=== PATIENT | male | born 1945 | race African-American/Black ===

== ENCOUNTER 2018-01-02 14:36 | Inpatient (IN) | payer MEDICARE, MEDICAID ==
[2018-01-02] VITALS (26 sets, daily range): BP systolic 69–186; BP diastolic 49–90; BMI 25.7
[~2018-01-02] VITALS: Ht 180.3 cm; Wt 72.8 kg
--- NOTE | ~2018-01-02 | MORECARE ---
CASE MANAGEMENT DISCHARGE SUMMARY PATIENT: TYLER CHANEY UNIT: [id number] ADM DATE: 01/02/18 AGE: 72 : 45 SEX: M ROOM/BED: D.2316 AUTHOR: JOSE ANTONIO,DOC PHYSICIAN: REFERRING PHYSICIAN: ALEJANDRO TORRES MD DATE OF SERVICE: 02/12/18 Discharge Plan Patient Name: TYLER CHANEY Facility: [facility]:[place] : 1945 Planned Disposition: Home Anticipated Discharge Date: Discharge Date: 02/12/2018 Expected LOS: Initial Reviewer: [id number] Initial Review Date: 01/02/2018 Generated: 02/12/18 4:20 pm Comments DCP- Discharge Planning Updated by [id number]: Agnieszka Lee on 02/11/18 12:[address] CM received call back from Dr. Evelyne Michaud from [facility] for P2P CM located Dr. De Paz and he spoke with Dr. Michaud. CM spoke with Dr. Michaud and patient has been approved for LTACH placement. CM called and left message with [facility] that patient has been approved. Sabrina with [facility] here for current records she stated that her air conditioning coil assembler would need to do a P2P with Dr. De Paz prior to admission. CM will continue to follow and assist with discharge planning / needs. DCP- Discharge Planning Updated by [email or web address]: Agnieszka Lee on 02/11/18 9:[address] CM CALLED [facility] AGAIN TO ASK ABOUT P2P. CM SPOKE WITH ANAND SHE STATED SHE WOULD EMAIL PROMOTIONAL MARKETING ANALYST AGAIN. CM REQUESTED THAT PROMOTIONAL MARKETING ANALYST CALL CM PHONE AND THEN SHE WOULD LOCATE PHYSICIAN FOR P2P. CM TO CONTINUE TO FOLLOW AND ASSIST WITH DISCHARGE PLANNING. DCP- Discharge Planning Updated by [email or web address]: Agnieszka Lee on 02/08/18 2:[address] CM SPOKE WITH AND HE HAS NOT RECIEVED A CALL BACK FROM [facility] FOR P2P. CM CALLED [facility] BACK 02/08/18 @1030. THEY REQUESTED I CALL BACK IF NO RESPONSE BY 1400. CM RETURNED CALL @ 1415 SPOKE WITH ISMAEL. SHE STATED THAT SHE WOULD EMAIL PHYSICIAN CM REQUESTED FOR THEM TO CALL [phone]. CM EXPRESSED THAT SHE UNDERSTAND WHY PATIENT COULD BE DENIED SINCE HE IS ON VENT. CM WILL CONTINUE TO FOLLOW AND ASSIST WITH DISCHARGE PLANNING / NEEDS. DCP- Discharge Planning Updated by [id number]: Agnieszka Lee on 02/06/18 1:[address] CM received denial letter from [facility] on LTACH placement. CM spoke with doctor Екатерина he agrees to do P2P. CM called to set up P2P with [facility] they said that their medical physicist has up to 24 hrs. to call back. CM will continue to follow and assist with discharge planning / needs. DCP- Discharge Planning Updated by [email or web address]: Agnieszka Lee on 02/05/18 2:[address] CM received call from Sabrina @ [facility] that patient had been denied per [facility] for LTACH placement. CM has requested a copy for denial to see if we can appeal. CM will continue to follow and assist with discharge planning / needs. Appended by Agnieszka Lee on 02/05/2018 15:25 PET STORE MERCHANDISER: CM received call back from [facility] she stated that she would bring denial letter in am and discuss the next steps.CM will continue to follow and assist with discharge planning / needs. DCP- Discharge Planning Updated by [email or web address]: Agnieszka Lee on 02/04/18 3:[address] CM called and spoke with Zenaida @ [facility]. She stated that she would call [facility] again today to see if they had made a determination. Zenaida stated that last week that [facility] had stated that they thought the records sent for auth to admit was clinicals sent from this facility for continued stay review. CM will continue to follow and assist with discharge planning / needs Appended by Agnieszka Lee on 02/04/2018 16:19 PET STORE MERCHANDISER: CM called Zenaida back @ [phone] to check on status still no answers on auth. CM relayed message to family. CM continues to follow and assist with discharge planning / needs. DCP- Discharge Planning Updated by [id number]: Agnieszka Lee on 02/01/18 11:[address] CM called and left message with LTACH intake to find out about auth from [facility].CM will continue to follow and assist as needed with discharge planning / needs. DCP- Discharge Planning Updated by [email or web address]: Margaret Sibley on 01/31/18 1:[address] Patient Name: TYLER CHANEY Admission Status: Urgent Accout number: [id number] Admission Date: 01-02-2018 : 1945 Admission Diagnosis:ACUTE RESPIRATORY FAILURE WITH HYPOXIA Attending: ALEJANDRO TORRES Current LOS: 29 Anticipated DC Date: Planned Disposition: Home Primary Insurance: [address] MEDICARE ADV Discharge Planning Comments: CM SPOKE WITH SABRINA AT [facility], SHE STATED SHE SPOKE WITH TAMRA AT [facility] AND THEY ARE WAITING TO GET AUTH. SABRINA STATES SHE WILL CONTACT US SOON SHE HEARS BACK FROM [facility]. CM WILL FOLLOW AND ASSIST NEEDED. Ed Teacher: Margaret Sibley DCP- Discharge Planning Updated by [email or web address]: Margaret Sibley on 01/31/18 12:[address] Patient Name: TYLER CHANEY Admission Status: Urgent Accout number: [id number] Admission Date: 01-02-2018 : 1945 Admission Diagnosis:ACUTE RESPIRATORY FAILURE WITH HYPOXIA Attending: ALEJANDRO TORRES Current LOS: 29 Anticipated DC Date: Planned Disposition: Home Primary Insurance: [employer] MEDICARE ADV Discharge Planning Comments: CM CALLED ZENAIDA WITH [facility] AT [phone], NO ANSWER, LEFT VOICE MAIL. CM WAITING FOR RETURN CALL. CM ATTEMPTED TO CALL ZENAIDA TWICE. Ed Teacher: Margaret Sibley DCP- Discharge Planning Updated by [email or web address]: Agnieszka Lee on 01/30/18 4:[address] CM called and spoke with Zenaida to check to see if she had received auth for placement for LTACH. Zenaida stated she hasn't heard from [facility] yet. She stated she would try to call them back today. Zenaida stated that she would notify CM as soon as she hears something. CM will continue to follow and assist with discharge planning / needs. DCP- Discharge Planning Updated by [id number]: Agnieszka Lee on 01/29/18 2:[address] CM called and spoke with Zenaida [phone] regarding placement. Zenaida stated that she had spoke with [facility] and they informed her that it could be up to 14days before they replied to auth request. Zenaida stated that she plans on calling them everyday to check on status. CM will continue to follow and assist with discharge planning / needs. DCP- Discharge Planning Updated by [id number]: Agnieszka Lee on 01/28/18 5:[address] CM called and spoke with Zenaida at [facility] in this am. Zenaida stated that she was awaiting approval from [facility]. She stated that once she got approval that the patient should meet criteria and could be transferred. Zenaida called back 10 mins later stated that [facility] was requesting more information. CM sent updated clinicals. CM will continue to follow and assist as needed with discharge planning / needs. DCP- Discharge Planning Updated by [id number]: Agnieszka Lee on 01/25/18 10:[address] CM spoke with Zenaida at [facility] in this am. She did receive ss# CM faxed updated records. Zenaida stated that she was sending paperwork to [facility] and hopefully we could transfer on Sunday. CM will continue to follow and assist with discharge planning/needs DCP- Discharge Planning Updated by [email or web address]: Agnieszka Lee on 01/24/18 7:[address] CM RECIEVED CALL THIS AM FROM ZENAIDA ([facility]) THAT SHE HAD RECIEVED PATIENTS RECORDS AND REFERAL BUT IT WAS LACKING SOCIAL SECURITY NUMBER. CM ATTEMPTED TO GET IN TOUCH WITH SON TO SEE IF HE HAD PATIENT SS#. CM RECIEVED SS# LATER TODAY AND A MESSAGE WAS LEFT WITH ZENAIDA AT [facility]. CM WILL CHECK BACK IN THE AM DCP- Discharge Planning Updated by [id number]: Agnieszka Lee on 01/23/18 4:[address] CM spoke with patients joanne Davis regarding LTACH placement. [facility] and decided upon [facility] in [place]. CM called and spoke with Zenaida earlier today to see if they had any vent bed availability she said yes. CM explained that we may have a referral for later today. CM called facility and faxed records. CM awaiting on approval decision. CM will continue to follow and assist with discharge planning / needs. DCP- Discharge Planning Updated by [email or web address]: Agnieszka Lee on 01/07/18 3:[address] Patient Name: TYLER CHANEY Admission Status: Urgent Accout number: [id number] Admission Date: 01-02-2018 : 1945 Admission Diagnosis:ACUTE RESPIRATORY FAILURE WITH HYPOXIA Attending: ALEJANDRO TORRES Current LOS: 5 Anticipated DC Date: Planned Disposition: Home Primary Insurance: [employer] MEDICARE ADV Discharge Planning Comments: CM met with daughter Suzy and son Lior. Patient is currently still on ventilator. Daughter states she knows he will not be able to stay alone any more. She states that he lives next door to many of his relatives. Currently unsure of disposition at this time. Patient is still in critical condition. CM will continue to follow and assist as needed with discharge planning / needs. Ed Teacher: Agnieszka Lee DCPIA - Discharge Planning Initial Assessment Updated by [id number]: Agnieszka Lee on 01/07/18 4:06 pm * Is the patient Alert and Oriented? No * How many steps to enter\exit or inside your home? * PCP Unknown * Preadmission Environment Home Alone * ADLs Independent * Equipment None * List name and contact numbers for known caregivers / representatives who currently or will assist patient after discharge: Lior Chaney [phone] * Verbal permission to speak to the caregivers and representatives has been obtained from the patient. N/A * Community resources currently utilized None * Additional services required to return to the preadmission environment? No * Can the patient safely return to the preadmission environment? Yes * Has this patient been hospitalized within the prior 30 days at any hospital? No Last DP export: 02/11/18 12:54 Patient Name: TYLER CHANEY Page 51993 at 1520 All edits/amendments must be made on the electronic document DICTATION DATE: 02/12/18 1520 IRONING PLEATER: JOEL 02/12/18 1520 RPT#: [id number] DC DATE:02/12/18 STATUS: DIS IN [facility] [address] [place] [address] END OF REPORT
--- NOTE | ~2018-01-02 | MORECARE ---
CASE MANAGEMENT DISCHARGE SUMMARY PATIENT: TYLER CHANEY UNIT: [id number] ADM DATE: 01/02/18 AGE: 72 : 45 SEX: M [facility] AUTHOR: JOSE ANTONIO,DOC PHYSICIAN: REFERRING PHYSICIAN: ALEJANDRO TORRES MD DATE OF SERVICE: 01/24/18 Discharge Plan Patient Name: TYLER CHANEY Facility: [facility]:[place] : 1945 Planned Disposition: Home Anticipated Discharge Date: Discharge Date: Expected LOS: Initial Reviewer: [email or web address] Initial Review Date: 01/02/2018 Generated: 01/24/18 9:58 pm Comments DCP- Discharge Planning Updated by [id number]: Agnieszka Lee on 01/24/18 7:[address] CM RECIEVED CALL THIS AM FROM NIKIA ([facility]) THAT SHE HAD RECIEVED PATIENTS RECORDS AND REFERAL BUT IT WAS LACKING SOCIAL SECURITY NUMBER. CM ATTEMPTED TO GET IN TOUCH WITH SON TO SEE IF HE HAD PATIENT SS#. CM RECIEVED SS# LATER TODAY AND A MESSAGE WAS LEFT WITH NIKIA AT [facility]. CM WILL CHECK BACK IN THE AM DCP- Discharge Planning Updated by [id number]: Agnieszka Lee on 01/23/18 4:[address] CM spoke with patients joanne Davis regarding LTACH placement. Cristiankiko research LTACH facilities and decided upon [facility] in [place]. CM called and spoke with Nikia earlier today to see if they had any vent bed availability she said yes. CM explained that we may have a referral for later today. CM called facility and faxed records. CM awaiting on approval decision. CM will continue to follow and assist with discharge planning / needs. DCP- Discharge Planning Updated by [email or web address]: Agnieszka Lee on 01/07/18 3:[address] Patient Name: TYLER CHANEY Admission Status: Urgent Accout number: [id number] Admission Date: 01-02-2018 : 1945 Admission Diagnosis:ACUTE RESPIRATORY FAILURE WITH HYPOXIA Attending: ALEJANDRO TORRES Current LOS: 5 Anticipated DC Date: Planned Disposition: Home Primary Insurance: [employer] MEDICARE ADV Discharge Planning Comments: CM met with daughter Suzy and son Lior. Patient is currently still on ventilator. Daughter states she knows he will not be able to stay alone any more. She states that he lives next door to many of his relatives. Currently unsure of disposition at this time. Patient is still in critical condition. CM will continue to follow and assist as needed with discharge planning / needs. Lawn Maintenance Worker: Agnieszka Lee DCPIA - Discharge Planning Initial Assessment Updated by [email or web address]: Agnieszka Lee on 01/07/18 4:06 pm * Is the patient Alert and Oriented? No * How many steps to enter\exit or inside your home? * PCP Unknown * Preadmission Environment Home Alone * ADLs Independent * Equipment None * List name and contact numbers for known caregivers / representatives who currently or will assist patient after discharge: Lior Chaney [phone] * Verbal permission to speak to the caregivers and representatives has been obtained from the patient. N/A * Community resources currently utilized None * Additional services required to return to the preadmission environment? No * Can the patient safely return to the preadmission environment? Yes * Has this patient been hospitalized within the prior 30 days at any hospital? No Last DP export: 01/23/18 4:36 Patient Name: TYLER CHANEY Page 29107 at 2058 All edits/amendments must be made on the electronic document DICTATION DATE: 01/24/182056 HEALTH CENTER MANAGER: JOEL 01/24/182056 RPT#: [id number] MS DATE: STATUS: ADM IN [facility] [address] [place] [address] END OF REPORT
--- NOTE | ~2018-01-02 | MORECARE ---
CASE MANAGEMENT DISCHARGE SUMMARY PATIENT: TYLER CHANEY UNIT: [id number] ADM DATE: 01/02/18 AGE: 72 : 45 SEX: M ROOM/BED: D[facility] AUTHOR: JOSE ANTONIODOC PHYSICIAN: REFERRING PHYSICIAN: LAEJANDRO TORRES MD DATE OF SERVICE: 01/07/18 Discharge Plan Patient Name: TYLER CHANEY Facility: [facility]:[place] : 1945 Planned Disposition: Home Anticipated Discharge Date: Discharge Date: Expected LOS: Initial Reviewer: [id number] Initial Review Date: 01/02/2018 Generated: 01/07/18 5:23 pm Comments DCP- Discharge Planning Updated by [email or web address]: Agnieszka Lee on 01/07/18 3:[address] Patient Name: TYLER CHANEY Admission Status: Urgent Accout number: [id number] Admission Date: 01-02-2018 : 1945 Admission Diagnosis:ACUTE RESPIRATORY FAILURE WITH HYPOXIA Attending: ALEJANDRO TORRES Current LOS: 5 Anticipated DC Date: Planned Disposition: Home Primary Insurance: [employer] MEDICARE ADV Discharge Planning Comments: CM met with daughter Suzy and son Lior. Patient is currently still on ventilator. Daughter states she knows he will not be able to stay alone any more. She states that he lives next door to many of his relatives. Currently unsure of disposition at this time. Patient is still in critical condition. CM will continue to follow and assist as needed with discharge planning / needs. Wire Weaver Cloth: Agnieszka Lee DCPIA - Discharge Planning Initial Assessment Updated by [email or web address]: Agnieszka Lee on 01/07/18 4:06 pm * Is the patient Alert and Oriented? No * How many steps to enter\exit or inside your home? * PCP Unknown * Preadmission Environment Home Alone * ADLs Independent * Equipment None * List name and contact numbers for known caregivers / representatives who currently or will assist patient after discharge: Lior Chaney [phone] * Verbal permission to speak to the caregivers and representatives has been obtained from the patient. N/A * Community resources currently utilized None * Additional services required to return to the preadmission environment? No * Can the patient safely return to the preadmission environment? Yes * Has this patient been hospitalized within the prior 30 days at any hospital? No Last DP export: 01/07/18 3:14 Patient Name: TYLER CHANEY Page 05494 at 1623 All edits/amendments must be made on the electronic document DICTATION DATE: 01/07/181621 PAINT GR[employer]ER [employer]: JOEL 01/07/181621 RPT#: [id number] DC DATE: STATUS: ADM IN [facility] [address] [place] [address] END OF REPORT
--- NOTE | ~2018-01-02 | MORECARE ---
CASE MANAGEMENT DISCHARGE SUMMARY PATIENT: TYLER CHANEY UNIT: [id number] ADM DATE: 01/02/18 AGE: 72 : 45 SEX: M ROOM/BED: D.2316 AUTHOR: JOSE ANTONIODOC PHYSICIAN: REFERRING PHYSICIAN: ALEJANDRO TORRES MD DATE OF SERVICE: 01/31/18 Discharge Plan Patient Name: TYLER CHANEY Facility: [facility]:[place] : 1945 Planned Disposition: Home Anticipated Discharge Date: Discharge Date: Expected LOS: Initial Reviewer: [id number] Initial Review Date: 01/02/2018 Generated: 01/31/18 3:14 pm Comments DCP- Discharge Planning Updated by [id number]: Margaret Sibley on 01/31/18 1:[address] Patient Name: TYLER CHANEY Admission Status: Urgent Accout number: [id number] Admission Date: 01-02-2018 : 1945 Admission Diagnosis:ACUTE RESPIRATORY FAILURE WITH HYPOXIA Attending: ALEJANDRO TORRES Current LOS: 29 Anticipated DC Date: Planned Disposition: Home Primary Insurance: [employer] MEDICARE ADV Discharge Planning Comments: CM SPOKE WITH SABRINA AT [facility], SHE STATED SHE SPOKE WITH TAMRA AT [facility] AND THEY ARE WAITING TO GET AUTH. SABRINA STATES SHE WILL CONTACT US SOON SHE HEARS BACK FROM [facility]. CM WILL FOLLOW AND ASSIST NEEDED. Text Transcriber: Margaret Sibley DCP- Discharge Planning Updated by [id number]: Margaret Sibley on 01/31/18 12:[address] Patient Name: TYLER CHANEY Admission Status: Urgent Accout number: [id number] Admission Date: 01-02-2018 : 1945 Admission Diagnosis:ACUTE RESPIRATORY FAILURE WITH HYPOXIA Attending: ALEJANDRO TORRES Current LOS: 29 Anticipated DC Date: Planned Disposition: Home Primary Insurance: [employer] MEDICARE ADV Discharge Planning Comments: CM CALLED NIKIA WITH [facility] AT [phone], NO ANSWER, LEFT VOICE MAIL. CM WAITING FOR RETURN CALL. CM ATTEMPTED TO CALL NIKIA TWICE. Text Transcriber: Margaret Sibley DCP- Discharge Planning Updated by [email or web address]: Agnieszka Lee on 01/30/18 4:[address] CM called and spoke with Nikia to check to see if she had received auth for placement for LTACH. Nikia stated she hasn't heard from [facility] yet. She stated she would try to call them back today. Nikia stated that she would notify CM as soon as she hears something. CM will continue to follow and assist with discharge planning / needs. DCP- Discharge Planning Updated by [email or web address]: Agnieszka Lee on 01/29/18 2:[address] CM called and spoke with Nikia [phone] regarding placement. Nikia stated that she had spoke with [facility] and they informed her that it could be up to 14days before they replied to auth request. Nikia stated that she plans on calling them everyday to check on status. CM will continue to follow and assist with discharge planning / needs. DCP- Discharge Planning Updated by [id number]: Agnieszka Lee on 01/28/18 5:[address] CM called and spoke with Nikia at [facility] in this am. Nikia stated that she was awaiting approval from [facility]. She stated that once she got approval that the patient should meet criteria and could be transferred. Nikia called back 10 mins later stated that [facility] was requesting more information. CM sent updated clinicals. CM will continue to follow and assist as needed with discharge planning / needs. DCP- Discharge Planning Updated by [email or web address]: Agnieszka Lee on 01/25/18 10:[address] CM spoke with Nikia at [facility] in this am. She did receive ss# CM faxed updated records. Nikia stated that she was sending paperwork to [facility] and hopefully we could transfer on Sunday. CM will continue to follow and assist with discharge planning/needs DCP- Discharge Planning Updated by [email or web address]: Agnieszka Lee on 01/24/18 7:[address] CM RECIEVED CALL THIS AM FROM NIKIA ([facility]) THAT SHE HAD RECIEVED PATIENTS RECORDS AND REFERAL BUT IT WAS LACKING SOCIAL SECURITY NUMBER. CM ATTEMPTED TO GET IN TOUCH WITH SON TO SEE IF HE HAD PATIENT SS#. CM RECIEVED SS# LATER TODAY AND A MESSAGE WAS LEFT WITH NIKIA AT [facility]. CM WILL CHECK BACK IN THE AM DCP- Discharge Planning Updated by [id number]: Agnieszka Lee on 01/23/18 4:[address] CM spoke with patients joanne Davis regarding LTACH placement. Elida research LTACH facilities and decided upon [facility] in [place]. CM called and spoke with Nikia earlier today to see if they had any vent bed availability she said yes. CM explained that we may have a referral for later today. CM called facility and faxed records. CM awaiting on approval decision. CM will continue to follow and assist with discharge planning / needs. DCP- Discharge Planning Updated by [email or web address]: Agnieszka Lee on 01/07/18 3:[address] Patient Name: TYLER CHANEY Admission Status: Urgent Accout number: [id number] Admission Date: 01-02-2018 : 1945 Admission Diagnosis:ACUTE RESPIRATORY FAILURE WITH HYPOXIA Attending: ALEJANDRO TORRES Current LOS: 5 Anticipated DC Date: Planned Disposition: Home Primary Insurance: [employer] MED[employer]ARE ADV Discharge Planning Comments: CM met with daughter Suzy and son Lior. Patient is currently still on ventilator. Daughter states she knows he will not be able to stay alone any more. She states that he lives next door to many of his relatives. Currently unsure of disposition at this time. Patient is still in critical condition. CM will continue to follow and assist as needed with discharge planning / needs. Text Transcriber: Agnieszka Lee DCPIA - Discharge Planning Initial Assessment Updated by [email or web address]: Agnieszka Lee on 01/07/18 4:06 pm * Is the patient Alert and Oriented? No * How many steps to enter\exit or inside your home? * PCP Unknown * Preadmission Environment Home Alone * ADLs Independent * Equipment None * List name and contact numbers for known caregivers / representatives who currently or will assist patient after discharge: Lior Chaney [phone] * Verbal permission to speak to the caregivers and representatives has been obtained from the patient. N/A * Community resources currently utilized None * Additional services required to return to the preadmission environment? No * Can the patient safely return to the preadmission environment? Yes * Has this patient been hospitalized within the prior 30 days at any hospital? No Last DP export: 01/31/18 12:35 p Patient Name: TYLER CHANEY Page 11585 at 1415 All edits/amendments must be made on the electronic document DICTATION DATE: 01/31/181413 CROSSWORD PUZZLE MAKER: JOEL 01/31/181413 RPT#: [id number] DC DATE: STATUS: ADM IN [facility] [address] [place] [address] END OF REPORT
--- NOTE | ~2018-01-02 | MORECARE ---
CASE MANAGEMENT DISCHARGE SUMMARY PATIENT: TYLER CHANEY UNIT: [id number] ADM DATE: 01/02/18 AGE: 72 : 45 SEX: M ROOM/BED: D.07 AUTHOR: JOSE ANTONIODOC PHYSICIAN: REFERRING PHYSICIAN: ALEJANDRO TORRES MD DATE OF SERVICE: 01/29/18 Discharge Plan Patient Name: TYLER CHANEY Facility: [facility]:[place] : 1945 Planned Disposition: Home Anticipated Discharge Date: Discharge Date: Expected LOS: Initial Reviewer: [email or web address] Initial Review Date: 01/02/2018 Generated: 01/29/18 4:59 pm Comments DCP- Discharge Planning Updated by [email or web address]: Agnieszka Lee on 01/29/18 2:[address] CM called and spoke with Nikia [phone] regarding placement. Nikia stated that she had spoke with [facility] and they informed her that it could be up to 14days before they replied to auth request. Nikia stated that she plans on calling them everyday to check on status. CM will continue to follow and assist with discharge planning / needs. DCP- Discharge Planning Updated by [id number]: Agnieszka Lee on 01/28/18 5:[address] CM called and spoke with Nikia at [facility] in this am. Nikia stated that she was awaiting approval from [facility]. She stated that once she got approval that the patient should meet criteria and could be transferred. Nikia called back 10 mins later stated that [facility] was requesting more information. CM sent updated clinicals. CM will continue to follow and assist as needed with discharge planning / needs. DCP- Discharge Planning Updated by [id number]: Agnieszka Lee on 01/25/18 10:[address] CM spoke with Nikia at [facility] in this am. She did receive # CM faxed updated records. Nikia stated that she was sending paperwork to [facility] and hopefully we could transfer on Sunday. CM will continue to follow and assist with discharge planning/needs DCP- Discharge Planning Updated by [id number]: Agnieszka Lee on 01/24/18 7:[address] CM RECIEVED CALL THIS AM FROM NIKIA ([facility]) THAT SHE HAD RECIEVED PATIENTS RECORDS AND REFERAL BUT IT WAS LACKING SOCIAL SECURITY NUMBER. CM ATTEMPTED TO GET IN TOUCH WITH SON TO SEE IF HE HAD PATIENT SS#. CM RECIEVED SS# LATER TODAY AND A MESSAGE WAS LEFT WITH NIKIA AT [facility]. CM WILL CHECK BACK IN THE AM DCP- Discharge Planning Updated by [email or web address]: Agnieszka Lee on 01/23/18 4:[address] CM spoke with patients joanne Davis regarding LTACH placement. Elida research LTACH facilities and decided upon [facility] in [place]. CM called and spoke with Nikia earlier today to see if they had any vent bed availability she said yes. CM explained that we may have a referral for later today. CM called facility and faxed records. CM awaiting on approval decision. CM will continue to follow and assist with discharge planning / needs. DCP- Discharge Planning Updated by [email or web address]: Agnieszka Lee on 01/07/18 3:[address] Patient Name: TYLER CHANEY Admission Status: Urgent Accout number: [id number] Admission Date: 01-02-2018 : 1945 Admission Diagnosis:ACUTE RESPIRATORY FAILURE WITH HYPOXIA Attending: ALEJANDRO TORRES Current LOS: 5 Anticipated DC Date: Planned Disposition: Home Primary Insurance: [employer] ADV Discharge Planning Comments: CM met with daughter Suzy and son Lior. Patient is currently still on ventilator. Daughter states she knows he will not be able to stay alone any more. She states that he lives next door to many of his relatives. Currently unsure of disposition at this time. Patient is still in critical condition. CM will continue to follow and assist as needed with discharge planning / needs. Meat Supervisor: Agnieszka Lee DCPIA - Discharge Planning Initial Assessment Updated by [id number]: Agnieszka Lee on 01/07/18 4:06 pm * Is the patient Alert and Oriented? No * How many steps to enter\exit or inside your home? * PCP Unknown * Preadmission Environment Home Alone * ADLs Independent * Equipment None * List name and contact numbers for known caregivers / representatives who currently or will assist patient after discharge: Lior Chaney [phone] * Verbal permission to speak to the caregivers and representatives has been obtained from the patient. N/A * Community resources currently utilized None * Additional services required to return to the preadmission environment? No * Can the patient safely return to the preadmission environment? Yes * Has this patient been hospitalized within the prior 30 days at any hospital? No Last DP export: 01/29/18 1:12 p Patient Name: TYLER CHANEY Page [id number] at 1559 All edits/amendments must be made on the electronic document DICTATION DATE: 01/29/181558 FREIGHT COORDINATOR: JOEL 01/29/181558 RPT#: [id number] DC DATE: STATUS: ADM IN [facility] [address] [place] [address] END OF REPORT
--- NOTE | ~2018-01-02 | MORECARE ---
CASE MANAGEMENT DISCHARGE SUMMARY PATIENT: TYLER CHANEY UNIT: [id number] ADM DATE: 01/02/18 AGE: 72 : 45 SEX: M ROOM/BED: D.07 AUTHOR: JOSE ANTONIO,DOC PHYSICIAN: REFERRING PHYSICIAN: ALEJANDRO TORRES MD DATE OF SERVICE: 01/29/18 Discharge Plan Patient Name: TYLER CHANEY Facility: [facility]:[place] : 1945 Planned Disposition: Home Anticipated Discharge Date: Discharge Date: Expected LOS: Initial Reviewer: [email or web address] Initial Review Date: 01/02/2018 Generated: 01/29/18 3:12 pm Comments DCP- Discharge Planning Updated by [email or web address]: Agnieszka Lee on 01/28/18 5:[address] CM called and spoke with Nikia at [facility] in this am. Nikia stated that she was awaiting approval from [facility]. She stated that once she got approval that the patient should meet criteria and could be transferred. Nikia called back 10 mins later stated that [facility] was requesting more information. CM sent updated clinicals. CM will continue to follow and assist as needed with discharge planning / needs. DCP- Discharge Planning Updated by [email or web address]: Agnieszka Lee on 01/25/18 10:[address] CM spoke with Nikia at [facility] in this am. She did receive ss# CM faxed updated records. Nikia stated that she was sending paperwork to [facility] and hopefully we could transfer on Sunday. CM will continue to follow and assist with discharge planning/needs DCP- Discharge Planning Updated by [email or web address]: Agnieszka Lee on 01/24/18 7:[address] CM RECIEVED CALL THIS AM FROM NIKIA ([facility]) THAT SHE HAD RECIEVED PATIENTS RECORDS AND REFERAL BUT IT WAS LACKING SOCIAL SECURITY NUMBER. CM ATTEMPTED TO GET IN TOUCH WITH SON TO SEE IF HE HAD PATIENT SS#. CM RECIEVED SS# LATER TODAY AND A MESSAGE WAS LEFT WITH NIKIA AT [facility]. CM WILL CHECK BACK IN THE AM DCP- Discharge Planning Updated by [email or web address]: Agnieszka Lee on 01/23/18 4:[address] CM spoke with patients joanne Davis regarding LTACH placement. [facility] research LTACH facilities and decided upon [facility] in [place]. CM called and spoke with Nikia earlier today to see if they had any vent bed availability she said yes. CM explained that we may have a referral for later today. CM called facility and faxed records. CM awaiting on approval decision. CM will continue to follow and assist with discharge planning / needs. DCP- Discharge Planning Updated by [id number]: Agnieszka Lee on 01/07/18 3:[address] Patient Name: TYLER CHANEY Admission Status: Urgent Accout number: [id number] Admission Date: 01-02-2018 : 1945 Admission Diagnosis:ACUTE RESPIRATORY FAILURE WITH HYPOXIA Attending: ALEJANDRO TORERS Current LOS: 5 Anticipated DC Date: Planned Disposition: Home Primary Insurance: [employer] ADV Discharge Planning Comments: CM met with daughter Suzy and son Lior. Patient is currently still on ventilator. Daughter states she knows he will not be able to stay alone any more. She states that he lives next door to many of his relatives. Currently unsure of disposition at this time. Patient is still in critical condition. CM will continue to follow and assist as needed with discharge planning / needs. Earring Maker: Agnieszka Lee DCPIA - Discharge Planning Initial Assessment Updated by [email or web address]: Agnieszka Lee on 01/07/18 4:06 pm * Is the patient Alert and Oriented? No * How many steps to enter\exit or inside your home? * PCP Unknown * Preadmission Environment Home Alone * ADLs Independent * Equipment None * List name and contact numbers for known caregivers / representatives who currently or will assist patient after discharge: Lior Chaney [phone] * Verbal permission to speak to the caregivers and representatives has been obtained from the patient. N/A * Community resources currently utilized None * Additional services required to return to the preadmission environment? No * Can the patient safely return to the preadmission environment? Yes * Has this patient been hospitalized within the prior 30 days at any hospital? No Last DP export: 01/28/18 5:22 p Patient Name: TYLER CHANEY Page [id number] at 1412 All edits/amendments must be made on the electronic document DICTATION DATE: 01/29/181410 FILM REPRODUCER: JOEL 01/29/181410 RPT#: [id number] DC DATE: STATUS: ADM IN [facility] [address] [place] [address] END OF REPORT
--- NOTE | ~2018-01-02 | MORECARE ---
CASE MANAGEMENT DISCHARGE SUMMARY PATIENT: TYLER CHANEY UNIT: [id number] ADM DATE: 01/02/18 AGE: 72 : 45 SEX: M ROOM/BED: D.2316 AUTHOR: JOSE ANTONIO,DOC PHYSICIAN: REFERRING PHYSICIAN: ALEJANDRO TORRES MD DATE OF SERVICE: 02/06/18 Discharge Plan Patient Name: TYLER CHANEY [facility] [facility] 1945 Planned Disposition: Home Anticipated Discharge Date: Discharge Date: Expected LOS: Initial Reviewer: [email or web address] Initial Review Date: 01/02/2018 Generated: 02/06/18 3:48 pm Comments DCP- Discharge Planning Updated by [email or web address]: Agnieszka Lee on 02/06/18 1:[address] CM received denial letter from [facility] on LTACH placement. CM spoke with doctor Екатерина he agrees to do P2P. CM called to set up P2P with [facility] they said that their pediatric medical assistant has up to 24 hrs. to call back. CM will continue to follow and assist with discharge planning / needs. DCP- Discharge Planning Updated by [email or web address]: Agnieszka Lee on 02/05/18 2:[address] CM received call from Sabrina [facility] that patient had been denied per [facility] for LTACH placement. has requested a copy for denial to see if we can appeal. CM will continue to follow and assist with discharge planning / needs. Appended by Agnieszka Lee on 02/05/2018 15:25 PRODUCTION ANALYST: CM received call back from [facility] she stated that she would bring denial letter in am and discuss the next steps.CM will continue to follow and assist with discharge planning / needs. DCP- Discharge Planning Updated by [email or web address]: Agnieszka Lee on 02/04/18 3:[address] CM called and spoke with Nikia [facility]. She stated that she would call [facility] again today to see if they had made a determination. Nikia stated that last week that [facility] had stated that they thought the records sent for auth to admit was clinicals sent from this facility for continued stay review. CM will continue to follow and assist with discharge planning / needs Appended by Agnieszka Lee on 02/04/2018 16:19 PRODUCTION ANALYST: CM called Nikia back @ 9204 to check on status still no answers on auth. CM relayed message to family. CM continues to follow and assist with discharge planning / needs. DCP- Discharge Planning Updated by [email or web address]: Agnieszka Lee on 02/01/18 11:[address] CM called and left message with LTACH intake to find out about auth from [facility].CM will continue to follow and assist as needed with discharge planning / needs. DCP- Discharge Planning Updated by [email or web address]: Margaret Sibley on 01/31/18 1:[address] Patient Name: TYLER CHANEY Admission Status: Urgent Accout number: [id number] Admission Date: 01-02-2018 : 1945 Admission Diagnosis:ACUTE RESPIRATORY FAILURE WITH HYPOXIA Attending: ALEJANDRO TORRES Current LOS: 29 Anticipated DC Date: Planned Disposition: Home Primary Insurance: [employer] MEDICARE ADV Discharge Planning Comments: CM SPOKE WITH SABRINA AT [facility], SHE STATED SHE SPOKE WITH TAMRA AT [facility] AND THEY ARE WAITING TO GET AUTH. SABRINA STATES SHE WILL CONTACT US SOON SHE HEARS BACK FROM [facility]. CM WILL FOLLOW AND ASSIST NEEDED. Convex Grinder: Margaret Sibley DCP- Discharge Planning Updated by [id number]: Margaret Sibley on 01/31/18 12:[address] Patient Name: TYLER CHANEY Admission Status: Urgent Accout number: [id number] Admission Date: 01-02-2018 : 1945 Admission Diagnosis:ACUTE RESPIRATORY FAILURE WITH HYPOXIA Attending: ALEJANDRO TORRES Current LOS: 29 Anticipated DC Date: Planned Disposition: Home Primary Insurance: [facility] [employer] Discharge Planning Comments: CM CALLED NIKIA WITH [facility] AT [phone], NO ANSWER, LEFT VOICE MAIL. CM WAITING FOR RETURN CALL. CM ATTEMPTED TO CALL NIKIA TWICE. Convex Grinder: Margaret Sibley DCP- Discharge Planning Updated by [id number]: Agnieszka Lee on 01/30/18 4:[address] CM called and spoke with Nikia to check to see if she had received auth for placement for LTACH. Nikia stated she hasn't heard from [facility] yet. She stated she would try to call them back today. Nikia stated that she would notify CM as soon as she hears something. CM will continue to follow and assist with discharge planning / needs. DCP- Discharge Planning Updated by [email or web address]: Agnieszka Lee on 01/29/18 2:[address] CM called and spoke with Nikia [phone] regarding placement. Nikia stated that she had spoke with [facility] and they informed her that it could be up to 14days before they replied to auth request. Nikia stated that she plans on calling them everyday to check on status. CM will continue to follow and assist with discharge planning / needs. DCP- Discharge Planning Updated by [email or web address]: Agnieszka Lee on 01/28/18 5:[address] CM called and spoke with iNkia at [facility] in this am. Nikia stated that she was awaiting approval from [facility]. She stated that once she got approval that the patient should meet criteria and could be transferred. Nikia called back 10 mins later stated that [facility] was requesting more information. CM sent updated clinicals. CM will continue to follow and assist as needed with discharge planning / needs. DCP- Discharge Planning Updated by [email or web address]: Agnieszka Lee on 01/25/18 10:[address] CM spoke with Nikia at [facility] in this am. She did receive ss# CM faxed updated records. Nikia stated that she was sending paperwork to [facility] and hopefully we could transfer on Sunday. CM will continue to follow and assist with discharge planning/needs DCP- Discharge Planning Updated by [email or web address]: Agnieszka Lee on 01/24/18 7:[address] CM RECIEVED CALL THIS AM FROM NIKIA ([facility]) THAT SHE HAD RECIEVED PATIENTS RECORDS AND REFERAL BUT IT WAS LACKING SOCIAL SECURITY NUMBER. CM ATTEMPTED TO GET IN TOUCH WITH SON TO SEE IF HE HAD PATIENT SS#. CM RECIEVED SS# LATER TODAY AND A MESSAGE WAS LEFT WITH NIKIA AT [facility]. CM WILL CHECK BACK IN THE AM DCP- Discharge Planning Updated by [email or web address]: Agnieszka Lee on 01/23/18 4:[address] CM spoke with patients joanne Davis regarding LTACH placement. Elida research [facility] facilities and decided upon [facility] in [place]. CM called and spoke with Nikia earlier today to see if they had any vent bed availability she said yes. CM explained that we may have a referral for later today. CM called facility and faxed records. CM awaiting on approval decision. CM will continue to follow and assist with discharge planning / needs. DCP- Discharge Planning Updated by [email or web address]: Agnieszka Lee on 01/07/18 3:[address] Patient Name: TYLER CHANEY Admission Status: Urgent Accout number: [id number] Admission Date: 01-02-2018 : 1945 Admission Diagnosis:ACUTE RESPIRATORY FAILURE WITH HYPOXIA Attending: ALEJANDRO TORRES Current LOS: 5 Anticipated DC Date: Planned Disposition: Home Primary Insurance: [employer] ADV Discharge Planning Comments: CM met with daughter Suzy and son Lior. Patient is currently still on ventilator. Daughter states she knows he will not be able to stay alone any more. She states that he lives next door to many of his relatives. Currently unsure of disposition at this time. Patient is still in critical condition. CM will continue to follow and assist as needed with discharge planning / needs. Convex Grinder: Agnieszka Lee DCPIA - Discharge Planning Initial Assessment Updated by [email or web address]: Agnieszka Lee on 01/07/18 4:06 pm * Is the patient Alert and Oriented? No * How many steps to enter\exit or inside your home? * PCP Unknown * Preadmission Environment Home Alone * ADLs Independent * Equipment None * List name and contact numbers for known caregivers / representatives who currently or will assist patient after discharge: Lior Chaney [phone] * Verbal permission to speak to the caregivers and representatives has been obtained from the patient. N/A * Community resources currently utilized None * Additional services required to return to the preadmission environment? No * Can the patient safely return to the preadmission environment? Yes * Has this patient been hospitalized within the prior 30 days at any hospital? No Last DP export: 02/05/18 2:29 Patient Name: TYLER CHANEY Page [id number] at 1448 All edits/amendments must be made on the electronic document DICTATION DATE: 02/06/18 1447 CONSTRUCTION TECH: JOEL 02/06/18 1447 RPT#: [id number] DC DATE: STATUS: ADM IN [facility] [address] [place] [address] END OF REPORT
--- NOTE | ~2018-01-02 | MORECARE ---
CASE MANAGEMENT DISCHARGE SUMMARY PATIENT: TYLER CHANEY UNIT: [id number] ADM DATE: 01/02/18 AGE: 72 : 45 SEX: M ROOM/BED: D.2316 AUTHOR: KAREN BRADY PHYSICIAN: REFERRING PHYSICIAN: ALEJANDRO TORRES MD DATE OF SERVICE: 02/04/18 Discharge Plan Patient Name: TYLER CHANEY Facility: [facility]:[place] : 1945 Planned Disposition: Home Anticipated Discharge Date: Discharge Date: Expected LOS: Initial Reviewer: [email or web address] Initial Review Date: 01/02/2018 Generated: 02/04/18 10:23 am Comments DCP- Discharge Planning Updated by [id number]: Agnieszka Lee on 02/04/18 8:[address] CM called and spoke with Nikia @ [facility]. She stated that she would call [facility] again today to see if they had made a determination. Nikia stated that last week that [facility] had stated that they thought the records sent for auth to admit was clinicals sent from this facility for continued stay review. CM will continue to follow and assist with discharge planning / needs DCP- Discharge Planning Updated by [email or web address]: Agnieszka Lee on 02/01/18 11:[address] CM called and left message with [facility] intake to find out about auth from [facility].CM will continue to follow and assist as needed with discharge planning / needs. DCP- Discharge Planning Updated by [id number]: Margaret Sibley on 01/31/18 1:[address] Patient Name: TYLER CHANEY Admission Status: Urgent Accout number: [id number] Admission Date: 01-02-2018 : 1945 Admission Diagnosis:ACUTE RESPIRATORY FAILURE WITH HYPOXIA Attending: ALEJANDRO TORRES Current LOS: 29 Anticipated DC Date: Planned Disposition: Home Primary Insurance: [facility] MEDICARE ADV Discharge Planning Comments: CM SPOKE WITH SABRINA AT [facility], SHE STATED SHE SPOKE WITH TAMRA AT [facility] AND THEY ARE WAITING TO GET AUTH. SABRINA STATES SHE WILL CONTACT US SOON SHE HEARS BACK FROM [facility]. CM WILL FOLLOW AND ASSIST NEEDED. Calibration Checker: Margaret Sibley DCP- Discharge Planning Updated by [id number]: Margaret Sibley on 01/31/18 12:[address] Patient Name: TYLER CHANEY Admission Status: Urgent Accout number: [id number] Admission Date: 01-02-2018 : 1945 Admission Diagnosis:ACUTE RESPIRATORY FAILURE WITH HYPOXIA Attending: ALEJANDRO TORRES Current LOS: 29 Anticipated DC Date: Planned Disposition: Home Primary Insurance: [facility] MEDICARE ADV Discharge Planning Comments: CM CALLED NIKIA WITH [facility] AT [phone], NO ANSWER, LEFT VOICE MAIL. CM WAITING FOR RETURN CALL. CM ATTEMPTED TO CALL NIKIA TWICE. Calibration Checker: Margaret Sibley DCP- Discharge Planning Updated by [id number]: Agnieszka Lee on 01/30/18 4:[address] CM called and spoke with Nikia to check to see if she had received auth for placement for LTACH. Nikia stated she hasn't heard from [facility] yet. She stated she would try to call them back today. Nikia stated that she would notify CM as soon as she hears something. CM will continue to follow and assist with discharge planning / needs. DCP- Discharge Planning Updated by [id number]: Agnieszka Lee on 01/29/18 2:[address] CM called and spoke with Nikia [phone] regarding placement. Nikia stated that she had spoke with [employer], [employer] and they informed her that it could be up to 14days before they replied to auth request. Nikia stated that she plans on calling them everyday to check on status. CM will continue to follow and assist with discharge planning / needs. DCP- Discharge Planning Updated by [id number]: Agnieszka Lee on 01/28/18 5:[address] CM called and spoke with Nikia at [facility] in this am. Nikia stated that she was awaiting approval from [facility]. She stated that once she got approval that the patient should meet criteria and could be transferred. Nikia called back 10 mins later stated that [facility] was requesting more information. CM sent updated clinicals. CM will continue to follow and assist as needed with discharge planning / needs. DCP- Discharge Planning Updated by [id number]: Agnieszka Lee on 01/25/18 10:[address] CM spoke with Nikia at [facility] in this am. She did receive # CM faxed updated records. Nikia stated that she was sending paperwork to [employer], [employer] and hopefully we could transfer on Sunday. CM will continue to follow and assist with discharge planning/needs DCP- Discharge Planning Updated by [id number]: Agnieszka Lee on 01/24/18 7:[address] CM RECIEVED CALL THIS AM FROM NIKIA ([facility]) THAT SHE HAD RECIEVED PATIENTS RECORDS AND REFERAL BUT IT WAS LACKING SOCIAL SECURITY NUMBER. CM ATTEMPTED TO GET IN TOUCH WITH SON TO SEE IF HE HAD PATIENT SS#. CM RECIEVED SS# LATER TODAY AND A MESSAGE WAS LEFT WITH NIKIA AT [facility]. CM WILL CHECK BACK IN THE AM DCP- Discharge Planning Updated by [id number]: Agnieszka Lee on 01/23/18 4:[address] CM spoke with patients joanne Davis regarding LTACH placement. [facility] research LTACH facilities and decided upon [facility] in [place]. CM called and spoke with Nikia earlier today to see if they had any vent bed availability she said yes. CM explained that we may have a referral for later today. CM called facility and faxed records. CM awaiting on approval decision. CM will continue to follow and assist with discharge planning / needs. DCP- Discharge Planning Updated by [id number]: Agnieszka Lee on 01/07/18 3:[address] Patient Name: TYLER CHANEY Admission Status: Urgent Accout number: [id number] Admission Date: 01-02-2018 : 1945 Admission Diagnosis:ACUTE RESPIRATORY FAILURE WITH HYPOXIA Attending: ALEJANDRO TORRES Current LOS: 5 Anticipated DC Date: Planned Disposition: Home Primary Insurance: [employer] MEDICARE ADV Discharge Planning Comments: CM met with daughter Suzy and son Lior. Patient is currently still on ventilator. Daughter states she knows he will not be able to stay alone any more. She states that he lives next door to many of his relatives. Currently unsure of disposition at this time. Patient is still in critical condition. CM will continue to follow and assist as needed with discharge planning / needs. Calibration Checker: Agnieszka Lee DCPIA - Discharge Planning Initial Assessment Updated by [id number]: Agnieszka Lee on 01/07/18 4:06 pm * Is the patient Alert and Oriented? No * How many steps to enter\exit or inside your home? * PCP Unknown * Preadmission Environment Home Alone * ADLs Independent * Equipment None * List name and contact numbers for known caregivers / representatives who currently or will assist patient after discharge: Lior Chaney [phone] * Verbal permission to speak to the caregivers and representatives has been obtained from the patient. N/A * Community resources currently utilized None * Additional services required to return to the preadmission environment? No * Can the patient safely return to the preadmission environment? Yes * Has this patient been hospitalized within the prior 30 days at any hospital? No Last DP export: 02/01/18 11:12 a Patient Name: TYLER CHANEY Page 77746 at 0923 All edits/amendments must be made on the electronic document DICTATION DATE: 02/04/18922 RECAPPER: JOEL 02/04/18922 RPT#: [id number] DC DATE: STATUS: ADM IN [facility] [address] [place] [address] END OF REPORT
--- NOTE | ~2018-01-02 | MORECARE ---
CASE MANAGEMENT DISCHARGE SUMMARY PATIENT: TYLER CHANEY UNIT: [id number] ADM DATE: 01/02/18 AGE: 72 : 45 SEX: M ROOM/BED: D.07 AUTHOR: JOSE ANTONIO,DOC PHYSICIAN: REFERRING PHYSICIAN: ALEJANDRO TORRES MD DATE OF SERVICE: 01/28/18 Discharge Plan Patient Name: TYLER CHANEY Facility: [facility]:[place] : 1945 Planned Disposition: Home Anticipated Discharge Date: Discharge Date: Expected LOS: Initial Reviewer: [email or web address] Initial Review Date: 01/02/2018 Generated: 01/28/18 7:22 pm Comments DCP- Discharge Planning Updated by [id number]: Agnieszka Lee on 01/28/18 5:[address] CM called and spoke with Nikia at [facility] in this am. Nikia stated that she was awaiting approval from [facility]. She stated that once she got approval that the patient should meet criteria and could be transferred. Nikia called back 10 mins later stated that [facility] was requesting more information. CM sent updated clinicals. CM will continue to follow and assist as needed with discharge planning / needs. DCP- Discharge Planning Updated by [email or web address]: Agnieszka Lee on 01/25/18 10:[address] CM spoke with Nikia at [facility] in this am. She did receive ss# CM faxed updated records. Nikia stated that she was sending paperwork to [facility] and hopefully we could transfer on Sunday. CM will continue to follow and assist with discharge planning/needs DCP- Discharge Planning Updated by [email or web address]: Agnieszka Lee on 01/24/18 7:[address] CM RECIEVED CALL THIS AM FROM NIKIA ([facility]) THAT SHE HAD RECIEVED PATIENTS RECORDS AND REFERAL BUT IT WAS LACKING SOCIAL SECURITY NUMBER. CM ATTEMPTED TO GET IN TOUCH WITH SON TO SEE IF HE HAD PATIENT SS#. CM RECIEVED SS# LATER TODAY AND A MESSAGE WAS LEFT WITH NIKIA AT [facility]. CM WILL CHECK BACK IN THE AM DCP- Discharge Planning Updated by [id number]: Agnieszka Lee on 01/23/18 4:[address] CM spoke with patients joanne Davis regarding LTACH placement. [facility] research LTACH facilities and decided upon [facility] in [place]. CM called and spoke with Nikia earlier today to see if they had any vent bed availability she said yes. CM explained that we may have a referral for later today. CM called facility and faxed records. CM awaiting on approval decision. CM will continue to follow and assist with discharge planning / needs. DCP- Discharge Planning Updated by [email or web address]: Agnieszka Lee on 01/07/18 3:[address] Patient Name: TYLER CHANEY Admission Status: Urgent Accout number: [id number] Admission Date: 01-02-2018 : 1945 Admission Diagnosis:ACUTE RESPIRATORY FAILURE WITH HYPOXIA Attending: ALEJANDRO TORRES Current LOS: 5 Anticipated DC Date: Planned Disposition: Home Primary Insurance: [employer] ADV Discharge Planning Comments: CM met with daughter Suzy and son Lior. Patient is currently still on ventilator. Daughter states she knows he will not be able to stay alone any more. She states that he lives next door to many of his relatives. Currently unsure of disposition at this time. Patient is still in critical condition. CM will continue to follow and assist as needed with discharge planning / needs. Egg Packer: Agnieszka Lee DCPIA - Discharge Planning Initial Assessment Updated by [email or web address]: Agnieszka Lee on 01/07/18 4:06 pm * Is the patient Alert and Oriented? No * How many steps to enter\exit or inside your home? * PCP Unknown * Preadmission Environment Home Alone * ADLs Independent * Equipment None * List name and contact numbers for known caregivers / representatives who currently or will assist patient after discharge: Lior Chaney [phone] * Verbal permission to speak to the caregivers and representatives has been obtained from the patient. N/A * Community resources currently utilized None * Additional services required to return to the preadmission environment? No * Can the patient safely return to the preadmission environment? Yes * Has this patient been hospitalized within the prior 30 days at any hospital? No Last DP export: 01/25/18 10:01 Patient Name: TYLER CHANEY Page 42679 at 1822 All edits/amendments must be made on the electronic document DICTATION DATE: 01/28/181821 STEAM PIPE FITTER: JOEL 01/28/181821 RPT#: [id number] [place] DATE: STATUS: ADM IN [facility] [address] [place] [address] END OF REPORT
--- NOTE | ~2018-01-02 | MORECARE ---
CASE MANAGEMENT DISCHARGE SUMMARY PATIENT: TYLER CHANEY UNIT: [id number] ADM DATE: 01/02/18 AGE: 72 : 45 SEX: M ROOM/BED: D.2316 AUTHOR: JOSE ANTONIO,DOC PHYSICIAN: REFERRING PHYSICIAN: ALEJANDRO TORRES MD DATE OF SERVICE: 02/08/18 Discharge Plan Patient Name: TYLER CHANEY Facility: [facility]:[place] : 1945 Planned Disposition: Home Anticipated Discharge Date: Discharge Date: Expected LOS: Initial Reviewer: [email or web address] Initial Review Date: 01/02/2018 Generated: 02/08/18 4:08 pm Comments DCP- Discharge Planning Updated by [id number]: Agnieszka Lee on 02/08/18 2:[address] CM SPOKE WITH AND HE HAS NOT RECIEVED A CALL BACK FROM [facility] FOR P2P. CM CALLED [facility] BACK 02/08/18 @1030. THEY REQUESTED I CALL BACK IF NO RESPONSE BY 1400. CM RETURNED CALL @ 1410 SPOKE WITH ISMAEL. SHE STATED THAT SHE WOULD EMAIL PHYSICIAN HORACE REQUESTED FOR THEM TO CALL [phone]. CM EXPRESSED THAT SHE UNDERSTAND WHY PATIENT COULD BE DENIED SINCE HE IS ON VENT. CM WILL CONTINUE TO FOLLOW AND ASSIST WITH DISCHARGE PLANNING / NEEDS. DCP- Discharge Planning Updated by [id number]: Agnieszka Lee on 02/06/18 1:[address] CM received denial letter from [facility] on LTACH placement. CM spoke with doctor Екатерина he agrees to do P2P. CM called to set up P2P with [facility] they said that their medical dosimetrist has up to 24 hrs. to call back. CM will continue to follow and assist with discharge planning / needs. DCP- Discharge Planning Updated by [email or web address]: Agnieszka Lee on 02/05/18 2:[address] CM received call from [facility] @ [facility] that patient had been denied per [facility] for LTACH placement. HORACE has requested a copy for denial to see if we can appeal. CM will continue to follow and assist with discharge planning / needs. Appended by Agnieszka Lee on 02/05/2018 15:25 FINE WIRE DRAWER: CM received call back from [facility] she stated that she would bring denial letter in am and discuss the next steps.CM will continue to follow and assist with discharge planning / needs. DCP- Discharge Planning Updated by [id number]: Agnieszka Lee on 02/04/18 3:[address] CM called and spoke with Nikia @ [facility]. She stated that she would call [facility] again today to see if they had made a determination. Nikia stated that last week that [facility] had stated that they thought the records sent for auth to admit was clinicals sent from this facility for continued stay review. CM will continue to follow and assist with discharge planning / needs Appended by Agnieszka Lee on 02/04/2018 16:19 FINE WIRE DRAWER: CM called Nikia back @ [phone] to check on status still no answers on auth. CM relayed message to family. CM continues to follow and assist with discharge planning / needs. DCP- Discharge Planning Updated by [email or web address]: Agnieszka Lee on 02/01/18 11:[address] CM called and left message with [facility] intake to find out about auth from [facility].CM will continue to follow and assist as needed with discharge planning / needs. DCP- Discharge Planning Updated by [id number]: Margaret Sibley on 01/31/18 1:[address] Patient Name: TYLER CHANEY Admission Status: Urgent Accout number: [id number] Admission Date: 01-02-2018 : 1945 Admission Diagnosis:ACUTE RESPIRATORY FAILURE WITH HYPOXIA Attending: ALEJANDRO TORRES Current LOS: 29 Anticipated DC Date: Planned Disposition: Home Primary Insurance: [facility] MEDICARE ADV Discharge Planning Comments: CM SPOKE WITH SABRINA AT [facility], SHE STATED SHE SPOKE WITH TAMRA AT [facility] AND THEY ARE WAITING TO GET AUTH. SABRINA STATES SHE WILL CONTACT US SOON SHE HEARS BACK FROM [facility]. CM WILL FOLLOW AND ASSIST NEEDED. Market Research Associate: Margaret Sibley DCP- Discharge Planning Updated by [id number]: Margaret Sibley on 01/31/18 12:[address] Patient Name: TYLER CHANEY Admission Status: Urgent Accout number: [id number] Admission Date: 01-02-2018 : 1945 Admission Diagnosis:ACUTE RESPIRATORY FAILURE WITH HYPOXIA Attending: ALEJANDRO TORRES Current LOS: 29 Anticipated DC Date: Planned Disposition: Home Primary Insurance: [employer] ADV Discharge Planning Comments: CM CALLED NIKIA WITH [facility] AT [phone], NO ANSWER, LEFT VOICE MAIL. CM WAITING FOR RETURN CALL. CM ATTEMPTED TO CALL NIKIA TWICE. Market Research Associate: Margaret Sibley DCP- Discharge Planning Updated by [id number]: Agnieszka Lee on 01/30/18 4:[address] CM called and spoke with Nikia to check to see if she had received auth for placement for LTACH. Nikia stated she hasn't heard from [facility] yet. She stated she would try to call them back today. Nikia stated that she would notify CM as soon as she hears something. CM will continue to follow and assist with discharge planning / needs. DCP- Discharge Planning Updated by [email or web address]: Agnieszka Lee on 01/29/18 2:[address] CM called and spoke with Nikia [phone] regarding placement. Nikia stated that she had spoke with [facility] and they informed her that it could be up to 14days before they replied to auth request. Nikia stated that she plans on calling them everyday to check on status. CM will continue to follow and assist with discharge planning / needs. DCP- Discharge Planning Updated by [email or web address]: Agnieszka Lee on 01/28/18 5:[address] CM called and spoke with Nikia at [facility] in this am. Nikia stated that she was awaiting approval from [facility]. She stated that once she got approval that the patient should meet criteria and could be transferred. Nikia called back 10 mins later stated that [facility] was requesting more information. CM sent updated clinicals. CM will continue to follow and assist as needed with discharge planning / needs. DCP- Discharge Planning Updated by [email or web address]: Agnieszka Lee on 01/25/18 10:[address] CM spoke with Nikia at [facility] in this am. She did receive ss# CM faxed updated records. Nikia stated that she was sending paperwork to [facility] and hopefully we could transfer on Sunday. CM will continue to follow and assist with discharge planning/needs DCP- Discharge Planning Updated by [email or web address]: Agnieszka Lee on 01/24/18 7:[address] CM RECIEVED CALL THIS AM FROM NIKIA ([facility]) THAT SHE HAD RECIEVED PATIENTS RECORDS AND REFERAL BUT IT WAS LACKING SOCIAL SECURITY NUMBER. CM ATTEMPTED TO GET IN TOUCH WITH SON TO SEE IF HE HAD PATIENT SS#. CM RECIEVED SS# LATER TODAY AND A MESSAGE WAS LEFT WITH NIKIA AT [facility]. CM WILL CHECK BACK IN THE AM DCP- Discharge Planning Updated by [id number]: Agnieszka Lee on 01/23/18 4:[address] CM spoke with patients joanne Davis regarding LTACH placement. [facility] research LTACH facilities and decided upon [facility] in [place]. CM called and spoke with Nikia earlier today to see if they had any vent bed availability she said yes. CM explained that we may have a referral for later today. CM called facility and faxed records. CM awaiting on approval decision. CM will continue to follow and assist with discharge planning / needs. DCP- Discharge Planning Updated by [id number]: Agnieszka Lee on 01/07/18 3:[address] Patient Name: TYLER CHANEY Admission Status: Urgent Accout number: [id number] Admission Date: 01-02-2018 : 1945 Admission Diagnosis:ACUTE RESPIRATORY FAILURE WITH HYPOXIA Attending: ALEJANDRO TORRES Current LOS: 5 Anticipated DC Date: Planned Disposition: Home Primary Insurance: [employer] ADV Discharge Planning Comments: CM met with daughter Suzy and son Lior. Patient is currently still on ventilator. Daughter states she knows he will not be able to stay alone any more. She states that he lives next door to many of his relatives. Currently unsure of disposition at this time. Patient is still in critical condition. CM will continue to follow and assist as needed with discharge planning / needs. Market Research Associate: Agnieszka Lee DCPIA - Discharge Planning Initial Assessment Updated by [id number]: Agnieszka Lee on 01/07/18 4:06 pm * Is the patient Alert and Oriented? No * How many steps to enter\exit or inside your home? * PCP Unknown * Preadmission Environment Home Alone * ADLs Independent * Equipment None * List name and contact numbers for known caregivers / representatives who currently or will assist patient after discharge: Lior Chaney [phone] * Verbal permission to speak to the caregivers and representatives has been obtained from the patient. N/A * Community resources currently utilized None * Additional services required to return to the preadmission environment? No * Can the patient safely return to the preadmission environment? Yes * Has this patient been hospitalized within the prior 30 days at any hospital? No Last DP export: 02/06/18 1:48 Patient Name: TYLER CHANEY Page [id number] at 1508 All edits/amendments must be made on the electronic document DICTATION DATE: 02/08/181506 TANNERY WORKER: JOEL 02/08/181506 RPT#: [id number] DC DATE: STATUS: ADM IN [facility] [address] [place] [address] END OF REPORT
--- NOTE | ~2018-01-02 | OP ---
PATIENT NAME: TYLER CHANEY MEDICAL RECORD: [id number] :[birth year] LOCATION:[facility] ADMISSION DATE:01/02/18 SURGEON: TORREY ACEVES MD DATE OF OPERATION: 01/08/2018 PROCEDURE: Lead portion of dual lead ICD placement. SURGEON: Bebeto Elizabeth MD INDICATION: Primary prevention. The patient with known nonischemic cardiomyopathy, previous episodes of V-tach and V-fib. DESCRIPTION OF PROCEDURE: After the left subclavian was cannulated via modified Seldinger technique via Dr. Elizabeth, first under fluoroscopic guidance, I placed the RV defibrillator lead in the RV apex without difficulty. After adequate R waves and thresholds were obtained, we then, under fluoroscopic guidance, placed the right atrial lead in the right atrial appendage. After adequate P waves were obtained, the leads were then attached to appropriate poles of the generator and the pocket was closed via Dr. Elizabeth. IMPRESSION: Successful lead portion of dual lead ICD placement. ESTIMATED BLOOD LOSS: Minimal. COMPLICATIONS: None. DISPOSITION: To the floor, stable. TRANSINT:[id number] Voice Confirmation ID: [id number] DOCUMENT ID: [id number] TORREY ACEVES MD at 1407 CC: [id number] DICTATION DATE: 01/08/18 1455 AIRPORT RAMP AGENT: 01/08/18 1700 ADM IN [place] [id number] [place] [address]
--- NOTE | ~2018-01-02 | HEMODYNAMI ---
PATIENT:TYLER CHANEY MEDICAL RECORD: [id number] : 45 LOCATION:[place] [address] ADMISSION DATE: 01/02/18 Generatedon:01/08/201815:02 Patient name: TYLER CHANEY Patient #: [id number] SSN: : 1945 Date of study: 01/08/2018 Page: Of Hemodynamic Procedure Report Patient Data Patient Demographics Procedure consent was obtained First Name: TYLER Gender: Male Last Name: RITU : 1945 Patient #: [id number] Age: 72 year(s) Race: Black Additional ID: [id number] Contact details [address]: [address] [place] [address] [place] State: [place] City: [place] Zip code: [address] Past Medical History Allergies: No known allergies Admission Admission Data Admission Date: 01/02/2018 Admission Time: 16:21 Room #: [facility] Height (in.): 70.87 BSA: 2.07 (m2) Height (cm.): 180 BMI: 26.85 (kg/m2) Weight (lbs.): 191.8 Weight (kg.): 87 Lab Results Lab Result Date: 01/07/2018 Lab Result Time: 0:00 Biochemistry Name Units Result Min Max BUN mg/dl 12 --(-*--)-- 7 18 Creatinine mg/dl 0.8 --(-*--)-- 0.6 1.3 CBC Name Units Result Min Max Hemoglobin g/dl 10.1 *-(----)-- 13.5 17.5 Procedure Procedure Types Cath Procedure Diagnostic Procedure PPM/ICD Internal Cardiac Defib Dual Procedure Description Procedure Date Procedure Date: 01/08/2018 Procedure Start Time: 14:17 Procedure End Time: 14:56 Procedure Staff Name Function Aranza Long RT Scrub Flavia Mckeon RT Monitor Willie Kong RN Nurse Bebeto Elizabeth MD Assisting physician Chirag Barney MD Performing Physician Procedure Data Cath Procedure Fluoroscopy Diagnostic fluoroscopy Total fluoroscopy Time: 7.7 time: 7.7 min min Diagnostic fluoroscopy Total fluoroscopy dose: 152 dose: 152 mGy mGy Contrast Material Contrast Material Type Amount (ml) Isovue 300 0 Estimated blood loss: 5 ml Procedure Complications No complications Procedure Medications Medication Administration Route Dosage Ancef (1Gm/50ml NS) I.V.P.B 1 g Ancef Irrigation Topical 1 g (1gm/500ml NS) Oxygen Fentanyl I.V. 50 mcg Lidocaine 1% added to field 20 Hemodynamics Rest HGB: 10.1 (g/dl) Heart Rate: 48 (bpm) Snapshots Pre Cath Intra NCS Post Cath Vital Signs Time Heart Resp SPO2 etCO2 NIBP (mmHg) Rhythm Pain Sedation Rate (ipm) (%) (mmHg) Status Level (bpm) 13:45:20 76 14 100 0 80/60(74) NSR 0 (11) 7(A) , No pain 13:49:20 76 14 100 0 100/79(91) NSR 0 (11) 7(A) , No pain 13:53:20 77 14 100 0 117/93(106) NSR 0 (11) 7(A) , No pain 13:57:26 86 14 100 0 122/95(109) NSR 0 (11) 7(A) , No pain 14:01:33 77 14 100 0 119/90(102) NSR 0 (11) 7(A) , No pain 14:05:39 77 14 100 0 112/87(100) NSR 0 (11) 7(A) , No pain 14:09:45 77 14 100 0 106/85(94) NSR 0 (11) 7(A) , No pain 14:13:49 77 14 100 0 99/81(91) NSR 0 (11) 7(A) , No pain 14:17:54 75 7 100 0 95/72(84) NSR 0 (11) 7(A) , No pain 14:21:54 83 14 100 0 101/78(88) NSR 0 (11) 7(A) , No pain 14:25:56 75 17 100 0 94/79(89) NSR 0 (11) 7(A) , No pain 14:29:58 75 14 100 0 88/75(82) NSR 0 (11) 7(A) , No pain 14:34:04 75 14 100 0 94/55(83) NSR 0 (11) 7(A) , No pain 14:38:05 76 14 100 0 95/73(84) NSR 0 (11) 7(A) , No pain 14:42:03 77 15 100 0 99/84(94) NSR 0 (11) 7(A) , No pain 14:46:02 76 14 100 0 105/82(93) NSR 0 (11) 7(A) , No pain 14:50:04 76 16 100 0 99/84(90) NSR 0 (11) 7(A) , No pain 14:54:06 52 14 100 0 100/81(94) NSR 0 (11) 7(A) , No pain Medications Time Medication Route Dose Verified Delivered Reason Notes Effectiveness by by 13:53:43 Ancef I.V.P.B 1 g Chirag Tapia used for (1Gm/50ml [facility] Stanford Kong RN procedure NS) 13:53:52 Ancef Topical 1 g Chirag Beard used for Irrigation [facility] Stanford Barney procedure (1gm/500ml MD FAROOQ NS) 13:54:04 Lidocaine added 20ml vial Chirag Tate for 1% to [facility] Stanford Elizabeth MD anticoagulation field FAROOQ 13:57:01 Oxygen ET tube intubated Chirag Barney MD, MD 14:13:12 Fentanyl I.V. 50 mcg Chirag Tapia for sedation [facility] Stanford Kong RN, MD Procedure Log Time Note 13:17:14 Patient Weight : 191.8 lbs 13:17:14 Patient Height : 70.87 inches 13:30:24 Willie Kong RN sent for patient. Start room use. 13:30:26 Time tracking: Regular hours (M-F 7:00 - 5:00) 13:30:30 Plan of Care:Hemodynamics will remain stable., Cardiac rhythm will remain stable., Comfort level will be maintained., Respiratory function will remain adequate., Patient/ family verbilizes understanding of procedure., Procedure tolerated without complication., Recovers from procedure without complications.. 13:43:58 Patient received from CVICU to CCL 3 Alert and oriented. Tansferred to table in Supine position. 13:43:59 Warm blankets applied, and annemarie hugger turned on for patient comfort. 13:44:00 Correct patient and procedure confirmed by team. 13:44:06 Signed procedure consent form obtained from spouse. 13:44:07 ECG and BP/O2 sat monitors applied to patient. 13:44:08 Full Disclosure recording started 13:44:09 Vital chart was started 13:50:07 Baseline sample Acquired. 13:50:14 H&P Date Dictated: 01/08/2018 Within 30 days and on chart.. 13:50:15 Pre-procedure instructions explained to patient. 13:50:16 Pre-op teaching completed and patient verbalized understanding. 13:50:17 Family in waiting room. 13:50:18 Patient NPO since Midnight. 13:50:22 Is the patient allergic to Iodine/contrast media? No. 13:50:23 Was the patient premedicated? No 13:51:34 Is patient on blood thinner?No 13:51:37 Patient diabetic? Yes. 13:51:40 Previous problem with sedation/anesthesia? Unknown ? 13:51:43 Snore? Unknown 13:51:45 Sleep apnea? Unknown 13:51:46 Deviated septum? Unknown 13:51:47 Opens mouth fully? Unknown 13:51:49 Sticks out tongue? Unknown 13:51:51 Airway obstruction? Yes copd 13:51:54 Dentures? Unknown ? 13:52:07 Pre procedure: right dorsailis pedis pulse 2+ Normal; easily identifiable; not easily obliterated 13:52:10 Pre procedure: left dorsailis pedis pulse 2+ Normal; easily identifiable; not easily obliterated 13:52:11 Patient pain scale 0/10 ?. 13:52:19 IV patent on arrival in left forearm with 0.9% NaCl at [facility]. 13:52:21 Lab results completed and on chart. 13:52:27 Left chest area was prepped with chlora-prep and draped in sterile fashion 13:52:28 Alarms reviewed by R. N. 13:52:29 Sharps counted by scrub and verified by R.N. 13:53:43 Ancef (1Gm/50ml NS) 1 g I.V.P.B was administered by Willie Kong RN; used for procedure; 13:53:52 Ancef Irrigation (1gm/500ml NS) 1 g Topical was administered by Chirag Barney MD; used for procedure; 13:54:04 Lidocaine 1% 20ml vial added to field was administered by Bebeto Elizabeth MD; for anticoagulation; 13:56:25 iv drips maintained via infusa pump from icu. 13:57:01 Oxygen intubated ET tube was administered by Chirag Barney MD; ; 14:07:34 --------ALL STOP TIME OUT------ 14:07:34 Physician arrived 14:07:35 Final Timeout: patient, procedure, and site verified with staff and physician. All members of the team are in agreement. 14:07:40 Left chest site verified by team. 14:07:59 Physical assessment completed. ASA score P 4 - A patient with severe systemic disease that is a constant threat to life as per Chirag Barney MD. 14:08:15 Sedation plan: IV Moderate Sedation Medication:Versed, Fentanyl 14:08:35 Use device set MORGAN PPM 14:08:39 Immobilizer Large opened to sterile field. 14:08:40 5-0 Monocryl PS2 [id number] opened to sterile field. 14:08:41 3-0 Vicryl Single Pack [id number] opened to sterile field. 14:08:42 2-0 Ticron Multipack ([id number]) opened to sterile field. 14:08:44 Cautery Pushbutton Pencil opened to sterile field. 14:08:45 Mepilex Dressing (397011) opened to sterile field. 14:08:47 Cautery Tip Primary Care Physician opened to sterile field. 14:13:12 Fentanyl 50 mcg I.V. was administered by Willie Kong RN; for sedation; 14:14:35 Procedure started. 14:16:19 Medtronic membership sales representative Cristino Jaquez present for procedure. 14:16:24 Grounding pad site Left thigh. 14:16:34 Grounding pad site free from injury. 14:16:55 Pre sharps counted by scrub and verified by RN: Sutures: 7; Sponges: 5; Stick needles: 2; Skin needles: 2; Blade: 1; Cautery: 1 14:17:04 Lidocaine 1% was administered to left subclavicular area by Bebeto Elizabeth MD . 14:17:06 Incision made to left subclavicular area. 14:19:43 Generator pocket made/opened. 14:20:48 Left subclavian vein accessed with 9Fr Peel Away Sheath. 14:20:54 Ventricular lead inserted and advanced. 14:20:58 Left subclavian vein accessed with 7Fr Peel Away Sheath. 14:21:01 Atrial lead inserted and advanced. 14:22:55 Medtronic 6946M-62 ICD Lead opened to sterile field. 14:24:02 Medtronic 4574-53 PPM Lead opened to sterile field. 14:36:31 Ventricular lead positioned. 14:36:36 Atrial lead positioned. 14:40:59 Peel-a-way sheath was split and removed. 14:41:01 Peel-a-way sheath was split and removed. 14:41:11 Ventricular lead attachment was completed with 2-0 ticron. 14:41:13 Atrial lead attachment was completed with 2-0 ticron. 14:41:22 AICD was attached to lead(s) and inserted into pocket. 14:43:27 Medtronic Ever[address] MRI [address]T [address] Smith ICD [id number] opened to sterile field. 14:44:20 Device pocket was irrigated with Ancef. 14:44:24 Subcutaneous closure was completed with 3-0 vicryl plus. 14:48:24 Skin closure was completed with 5-0 monocryl. 14:51:01 Lt Chest incision was dressed with Mepilex dressing. 14:55:15 Procedure ended.(Physican Out) 14:55:39 Fluoroscopy time 07.70 minutes. 14:55:55 Fluoroscopy dose: 152 mGy 14:55:55 Flurop Dose total: 152 14:56:02 Contrast amount:Isovue 300 0ml. 14:56:04 Sharps counted by scrub and verified by R.N. 14:56:06 Insertion/operative site no bleeding no hematoma. 14:56:11 Post procedure rhythm: paced 14:56:13 Estimated blood loss: 5 ml 14:56:15 Patient needs reinforcement of post procedure teaching. 14:56:15 Post procedure instruction explained to patient.Patient verbalizes understanding. 14:56:29 Procedure and supply charges have been captured, reviewed, submitted and are correct. 14:56:37 Procedure Complication : No complications 14:56:40 Vital chart was stopped 14:56:41 See physician's report for complete and final results. 14:56:51 Report given to ICU. 14:56:53 Patient transfered to ICU with Stretcher. 14:56:56 Full Disclosure recording stopped 14:56:56 Procedure ended. 14:57:00 End room use (Document Last) 14:58:33 Parameters--Ventricular P/R Wave: 6.7mV. Current: ?mA; Threshold: 0.3V; Impedence: 708OHMS. 14:59:18 Parameters--Atrial P/R Wave: 3.2mV. Current: ?mA; Threshold: 0.4V; Impedence: 562OHMS. Device Usage Item Name Manufacture Quantity Catalog Hospital Part Current Minimal Lot# / Serial# Number Charge Number Stock Stock Code Immobilizer Cardinal 1 [id number] 5 Large Health 5-0 Monocryl Ethicon 1 [id number] [id number] 5 PS2 Y495G 3-0 Vicryl Ethicon 1 [id number] 036029 [id number] 5 Single Pack [id number] 2-0 Ticron Ethicon 2 [id number] 31781 [id number] 5 Multipack ([id number]) Cautery Microtek 1 [id number] 552295 48610 251512 5 Pushbutton [employer] Inc[employer] Pencil Mepilex Cardinal 1 [id number] 611430 606880 818258 5 Dressing Health (468024) Cautery Tip Microtek 1 [id number] [id number] [id number] 043334 5 Primary Care Physician Medical Inc. Medtronic Medtronic 1 6946M-62 298679 690851 453137 5 [id number] 6946M-62 ICD [id number] Lead Medtronic Medtronic 1 4574-53 129563 474970 5 [id number] 4574-53 PPM [id number] Lead Medtronic Medtronic 1 [id number] 277529 [id number] 5 [id number] EXP Evera MRI XT 01-09-2019 DR Smith ICD [id number] Signature Audit [place] Stage Time Signature Unsigned Intra-Procedure 01/08/2018 Flavia Mckeon RT(R) 3:00:16 PM RT(R) 01/08/2018 3:02:02 PM Intra-Procedure 01/08/2018 Flavia Mckeon 3:02:36 PM RT(R) Signatures Monitor : Flavia Mckeon RT Signature : Date : Time : [facility] [address] [place] [address]
--- NOTE | ~2018-01-02 | MORECARE ---
CASE MANAGEMENT DISCHARGE SUMMARY PATIENT: TYLER CHANEY UNIT: [id number] ADM DATE: 01/02/18 AGE: 72 : 45 SEX: M ROOM/BED: D.2316 AUTHOR: JOSE ANTONIO,DOC PHYSICIAN: REFERRING PHYSICIAN: ALEJANDRO TORRES MD DATE OF SERVICE: 02/11/18 Discharge Plan Patient Name: TYLER CHANEY Facility: [facility]:[place] : 1945 Planned Disposition: Home Anticipated Discharge Date: Discharge Date: Expected LOS: Initial Reviewer: [email or web address] Initial Review Date: 01/02/2018 Generated: 02/11/18 2:54 pm Comments DCP- Discharge Planning Updated by [email or web address]: Agnieszka Lee on 02/11/18 12:[address] CM received call back from Dr. Evelyne Michaud from [facility] for P2P CM located Dr. De Paz and he spoke with Dr. Michaud. CM spoke with Dr. Michaud and patient has been approved for [facility]ACH placement. CM called and [facility] message [facility] [place] that patient has been approved. Sabrina with [facility] here for current records she stated that her pull socket assembler would need to do a P2P with Dr. De Paz prior to admission. CM will continue to follow and assist with discharge planning / needs. DCP- Discharge Planning Updated by [id number]: Agnieszka Lee on 02/11/18 9:[address] CM CALLED [facility] AGAIN TO ASK ABOUT P2P. CM SPOKE WITH ANAND SHE STATED SHE WOULD EMAIL PRESCHOOL ASSISTANT TEACHER AGAIN. CM REQUESTED THAT PRESCHOOL ASSISTANT TEACHER CALL CM PHONE AND THEN SHE WOULD LOCATE PHYSICIAN FOR P2P. CM TO CONTINUE TO FOLLOW AND ASSIST WITH DISCHARGE PLANNING. DCP- Discharge Planning Updated by [id number]: Agnieszka Lee on 02/08/18 2:[address] CM SPOKE WITH AND HE HAS NOT RECIEVED A CALL BACK FROM [facility] FOR P2P. CM CALLED [facility] BACK 02/08/18 @1030. THEY REQUESTED I CALL BACK IF NO RESPONSE BY 1400. CM RETURNED CALL @ 1410 SPOKE WITH ISMAEL. SHE STATED THAT SHE WOULD EMAIL PHYSICIAN HORACE REQUESTED FOR THEM TO CALL [phone]. CM EXPRESSED THAT SHE UNDERSTAND WHY PATIENT COULD BE DENIED SINCE HE IS ON VENT. CM WILL CONTINUE TO FOLLOW AND ASSIST WITH DISCHARGE PLANNING / NEEDS. DCP- Discharge Planning Updated by [id number]: Agnieszka Lee on 02/06/18 1:[address] CM received denial letter from [facility] on LTACH placement. CM spoke with doctor Екатерина he agrees to do P2P. CM called to set up P2P with [facility] they said that their medical lab technologist has up to 24 hrs. to call back. CM will continue to follow and assist with discharge planning / needs. DCP- Discharge Planning Updated by [id number]: Agnieszka Lee on 02/05/18 2:[address] CM received call from [facility] @ [facility] that patient had been denied per [facility] for LTACH placement. CM has requested a copy for denial to see if we can appeal. CM will continue to follow and assist with discharge planning / needs. Appended by Agnieszka Lee on 02/05/2018 15:25 PRODUCTION STATISTICAL CLERK: CM received call back from [facility] she stated that she would bring denial letter in am and discuss the next steps.CM will continue to follow and assist with discharge planning / needs. DCP- Discharge Planning Updated by [email or web address]: Agnieszka Lee on 02/04/18 3:[address] CM called and spoke with Zeniada @ [facility]. She stated that she would call [facility] again today to see if they had made a determination. Zenaida stated that last week that [facility] had stated that they thought the records sent for auth to admit was clinicals sent from this facility for continued stay review. CM will continue to follow and assist with discharge planning / needs Appended by Agnieszka Lee on 02/04/2018 16:19 PRODUCTION STATISTICAL CLERK: CM called Zenaida back @ [phone] to check on status still no answers on auth. CM relayed message to family. CM continues to follow and assist with discharge planning / needs. DCP- Discharge Planning Updated by [id number]: Agnieszka Lee on 02/01/18 11:[address] CM called and left message with LTACH intake to find out about auth from [facility].CM will continue to follow and assist as needed with discharge planning / needs. DCP- Discharge Planning Updated by [id number]: Margaret Sibley on 01/31/18 1:[address] Patient Name: TYLER CHANEY Admission Status: Urgent Accout number: [id number] Admission Date: 01-02-2018 : 1945 Admission Diagnosis:ACUTE RESPIRATORY FAILURE WITH HYPOXIA Attending: ALEJANDRO TORRES Current LOS: 29 Anticipated DC Date: Planned Disposition: Home Primary Insurance: [employer] MEDICARE ADV Discharge Planning Comments: CM SPOKE WITH SABRINA AT [facility], SHE STATED SHE SPOKE WITH TAMRA AT [facility] AND THEY ARE WAITING TO GET AUTH. SABRINA STATES SHE WILL CONTACT US SOON SHE HEARS [facility] FROM [facility]. CM WILL FOLLOW AND ASSIST NEEDED. Cnc Manufacturing Engineer: Margaret Sibley DCP- Discharge Planning Updated by [id number]: Margaret Sibley on 01/31/18 12:[address] Patient Name: YTLER CHANEY Admission Status: Urgent Accout number: [id number] Admission Date: 01-02-2018 : 1945 Admission Diagnosis:ACUTE RESPIRATORY FAILURE WITH HYPOXIA Attending: ALEJANDRO TORRES Current LOS: 29 Anticipated DC Date: Planned Disposition: Home Primary Insurance: WELLC[employer] MEDICARE ADV Discharge Planning Comments: CM CALLED ZENAIDA WITH [facility] AT [phone], NO ANSWER, LEFT VOICE MAIL. CM WAITING FOR RETURN CALL. CM ATTEMPTED TO CALL ZENAIDA TWICE. Cnc Manufacturing Engineer: Margaret Sibley DCP- Discharge Planning Updated by [id number]: Agnieszka Lee on 01/30/18 4:[address] CM called and spoke with Zenaida to check to see if she had received auth for placement for LTACH. Zenaida stated she hasn't heard from [facility] yet. She stated she would try to call them back today. Zenaida stated that she would notify CM as soon as she hears something. CM will continue to follow and assist with discharge planning / needs. DCP- Discharge Planning Updated by [email or web address]: Agnieszka Lee on 01/29/18 2:[address] CM called and spoke with Zenaida [phone] regarding placement. Zenaida stated that she had spoke with [employer] and they informed her that it could be up to 14days before they replied to auth request. Zenaida stated that she plans on calling them everyday to check on status. CM will continue to follow and assist with discharge planning / needs. DCP- Discharge Planning Updated by [id number]: Agnieszka Lee on 01/28/18 5:[address] CM called and spoke with Zenaida at [facility] in this am. Zenaida stated that she was awaiting approval from [facility]. She stated that once she got approval that the patient should meet criteria and could be transferred. Zenaida called back 10 mins later stated that [facility] was requesting more information. CM sent updated clinicals. CM will continue to follow and assist as needed with discharge planning / needs. DCP- Discharge Planning Updated by [email or web address]: Agnieszka Lee on 01/25/18 10:[address] CM spoke with Zenaida at [facility] in this am. She did receive ss# CM faxed updated records. Zenaida stated that she was sending paperwork to [facility] and hopefully we could transfer on Sunday. CM will continue to follow and assist with discharge planning/needs DCP- Discharge Planning Updated by [email or web address]: Agnieszka Lee on 01/24/18 7:[address] CM RECIEVED CALL THIS AM FROM ZENAIDA ([facility]) THAT SHE HAD RECIEVED PATIENTS RECORDS AND REFERAL BUT IT WAS LACKING SOCIAL SECURITY NUMBER. CM ATTEMPTED TO GET IN TOUCH WITH SON TO SEE IF HE HAD PATIENT SS#. CM RECIEVED SS# LATER TODAY AND A MESSAGE WAS LEFT WITH ZENAIDA AT [facility]. CM WILL CHECK BACK IN THE AM DCP- Discharge Planning Updated by [id number]: Agnieszka Lee on 01/23/18 4:[address] CM spoke with patients joanne Davis regarding LTACH placement. Cristiankiko research LTACH facilities and decided upon [facility] in [place]. CM called and spoke with Zenaida earlier today to see if they had any vent bed availability she said yes. CM explained that we may have a referral for later today. CM called facility and faxed records. CM awaiting on approval decision. CM will continue to follow and assist with discharge planning / needs. DCP- Discharge Planning Updated by [id number]: Agnieszka Lee on 01/07/18 3:[address] Patient Name: TYLER CHANEY Admission Status: Urgent Accout number: [id number] Admission Date: 01-02-2018 : 1945 Admission Diagnosis:ACUTE RESPIRATORY FAILURE WITH HYPOXIA Attending: ALEJANDRO TORRES Current LOS: 5 Anticipated DC Date: Planned Disposition: Home Primary Insurance: WE[employer] MEDICARE ADV Discharge Planning Comments: CM met with daughter Suzy and son Lior. Patient is currently still on ventilator. Daughter states she knows he will not be able to stay alone any more. She states that he lives next door to many of his relatives. Currently unsure of disposition at this time. Patient is still in critical condition. CM will continue to follow and assist as needed with discharge planning / needs. Cnc Manufacturing Engineer: Agnieszka Lee DCPIA - Discharge Planning Initial Assessment Updated by [email or web address]: Agnieszka Lee on 01/07/18 4:06 pm * Is the patient Alert and Oriented? No * How many steps to enter\exit or inside your home? * PCP Unknown * Preadmission Environment Home Alone * ADLs Independent * Equipment None * List name and contact numbers for known caregivers / representatives who currently or will assist patient after discharge: Lior Chaney [phone] * Verbal permission to speak to the caregivers and representatives has been obtained from the patient. N/A * Community resources currently utilized None * Additional services required to return to the preadmission environment? No * Can the patient safely return to the preadmission environment? Yes * Has this patient been hospitalized within the prior 30 days at any hospital? No Last DP export: 02/11/18 9:53 Patient Name: TYLER CHANEY Page [id number] at 1355 All edits/amendments must be made on the electronic document DICTATION DATE: 02/11/18 1354 CAREER PLACEMENT SPECIALIST: JOEL 02/11/18 1354 RPT#: [id number] [place] DATE: STATUS: ADM IN [facility] [address] [place] [address] END OF REPORT
--- NOTE | ~2018-01-02 | MORECARE ---
CASE MANAGEMENT DISCHARGE SUMMARY PATIENT: TYLER CHANEY UNIT: [id number] ADM DATE: 01/02/18 AGE: 72 : 45 SEX: M ROOM/BED: D.2316 AUTHOR: JOSE ANTONIODOC PHYSICIAN: REFERRING PHYSICIAN: ALEJANDRO TORRES MD DATE OF SERVICE: 01/31/18 Discharge Plan Patient Name: TYLER CHANEY Facility: [facility]:[place] : 1945 Planned Disposition: Home Anticipated Discharge Date: Discharge Date: Expected LOS: Initial Reviewer: [email or web address] Initial Review Date: 01/02/2018 Generated: 01/31/18 2:35 pm Comments DCP- Discharge Planning Updated by [id number]: Margaret Sibley on 01/31/18 12:[address] Patient Name: TYLER CHANEY Admission Status: Urgent Accout number: [id number] Admission Date: 01-02-2018 : 1945 Admission Diagnosis:ACUTE RESPIRATORY FAILURE WITH HYPOXIA Attending: ALEJANDRO TORRES Current LOS: 29 Anticipated DC Date: Planned Disposition: Home Primary Insurance: [employer] MEDICARE ADV Discharge Planning Comments: CM CALLED NIKIA WITH [facility] AT [phone], NO ANSWER, LEFT VOICE MAIL. CM WAITING FOR RETURN CALL. CM ATTEMPTED TO CALL NIKIA TWICE. Communication Lecturer: Margaret Sibley DCP- Discharge Planning Updated by [id number]: Agnieszka Lee on 01/30/18 4:[address] CM called and spoke with Nikia to check to see if she had received auth for placement for LTACH. Nikia stated she hasn't heard from [employer] yet. She stated she would try to call them back today. Nikia stated that she would notify CM as soon as she hears something. CM will continue to follow and assist with discharge planning / needs. DCP- Discharge Planning Updated by [email or web address]: Agnieszka Lee on 01/29/18 2:[address] CM called and spoke with Nikia [phone] regarding placement. Nikia stated that she had spoke with [employer] and they informed her that it could be up to 14days before they replied to auth request. Nikia stated that she plans on calling them everyday to check on status. CM will continue to follow and assist with discharge planning / needs. DCP- Discharge Planning Updated by [id number]: Agnieszka Lee on 01/28/18 5:[address] CM called and spoke with Nikia at [facility] in this am. Nikia stated that she was awaiting approval from [facility]. She stated that once she got approval that the patient should meet criteria and could be transferred. Nikia called back 10 mins later stated that [facility] was requesting more information. CM sent updated clinicals. CM will continue to follow and assist as needed with discharge planning / needs. DCP- Discharge Planning Updated by [id number]: Agnieszka Lee on 01/25/18 10:[address] CM spoke with Nikia at [facility] in this am. She did receive ss# CM faxed updated records. Nikia stated that she was sending paperwork to [facility] and hopefully we could transfer on Sunday. CM will continue to follow and assist with discharge planning/needs DCP- Discharge Planning Updated by [email or web address]: Agnieszka Lee on 01/24/18 7:[address] CM RECIEVED CALL THIS AM FROM NIKIA ([facility]) THAT SHE HAD RECIEVED PATIENTS RECORDS AND REFERAL BUT IT WAS LACKING SOCIAL SECURITY NUMBER. CM ATTEMPTED TO GET IN TOUCH WITH SON TO SEE IF HE HAD PATIENT SS#. CM RECIEVED SS# LATER TODAY AND A MESSAGE WAS LEFT WITH NIKIA AT [facility]. CM WILL CHECK BACK IN THE AM DCP- Discharge Planning Updated by [email or web address]: Agnieszka Lee on 01/23/18 4:[address] CM spoke with patients joanne Davis regarding LTACH placement. [facility] facilities and decided upon [facility] in [place]. CM called and spoke with Nikia earlier today to see if they had any vent bed availability she said yes. CM explained that we may have a referral for later today. CM called facility and faxed records. CM awaiting on approval decision. CM will continue to follow and assist with discharge planning / needs. DCP- Discharge Planning Updated by [id number]: Agnieszka Lee on 01/07/18 3:[address] Patient Name: TYLER CHANEY Admission Status: Urgent Accout number: [id number] Admission Date: 01-02-2018 : 1945 Admission Diagnosis:ACUTE RESPIRATORY FAILURE WITH HYPOXIA Attending: ALEJANDRO TORRES Current LOS: 5 Anticipated DC Date: Planned Disposition: Home Primary Insurance: [employer] MEDICARE ADV Discharge Planning Comments: CM met with daughter Suzy and son Lior. Patient is currently still on ventilator. Daughter states she knows he will not be able to stay alone any more. She states that he lives next door to many of his relatives. Currently unsure of disposition at this time. Patient is still in critical condition. CM will continue to follow and assist as needed with discharge planning / needs. Communication Lecturer: Agnieszka Lee DCPIA - Discharge Planning Initial Assessment Updated by [id number]: Agnieszka Lee on 01/07/18 4:06 pm * Is the patient Alert and Oriented? No * How many steps to enter\exit or inside your home? * PCP Unknown * Preadmission Environment Home Alone * ADLs Independent * Equipment None * List name and contact numbers for known caregivers / representatives who currently or will assist patient after discharge: Lior Chaney [phone] * Verbal permission to speak to the caregivers and representatives has been obtained from the patient. N/A * Community resources currently utilized None * Additional services required to return to the preadmission environment? No * Can the patient safely return to the preadmission environment? Yes * Has this patient been hospitalized within the prior 30 days at any hospital? No Last DP export: 01/30/18 4:26 p Patient Name: TYLER CHANEY Page [id number] at 1335 All edits/amendments must be made on the electronic document DICTATION DATE: 01/31/18 1335 MACHINE SILK SCREEN PRINTER: JOEL 01/31/18 1335 RPT#: [id number] DC DATE: STATUS: ADM IN [facility] [address] [place] [address] END OF REPORT
--- NOTE | ~2018-01-02 | MORECARE ---
CASE MANAGEMENT DISCHARGE SUMMARY PATIENT: TYLER CHANEY UNIT: [id number] ADM DATE: 01/02/18 AGE: 72 : 45 SEX: M ROOM/BED: D.2316 AUTHOR: JOSE ANTONIO,DOC PHYSICIAN: REFERRING PHYSICIAN: ALEJANDRO TORRES MD DATE OF SERVICE: 02/05/18 Discharge Plan Patient Name: TYLER CHANEY Facility: [facility]:[place] : 1945 Planned Disposition: Home Anticipated Discharge Date: Discharge Date: Expected LOS: Initial Reviewer: [email or web address] Initial Review Date: 01/02/2018 Generated: 02/05/18 1:36 pm Comments DCP- Discharge Planning Updated by [id number]: Agineszka Lee on 02/05/18 11:[address] CM received call from [facility] that patient had been denied per [facility] for LTACH placement. CM has requested a copy for denial to see if we can appeal. CM will continue to follow and assist with discharge planning / needs. DCP- Discharge Planning Updated by [id number]: Agnieszka Lee on 02/04/18 3:[address] CM called and spoke with [facility]. She stated that she would call [facility] again today to see if they had made a determination. Nikia stated that last week that [facility] had stated that they thought the records sent for auth to admit was clinicals sent from this facility for continued stay review. CM will continue to follow and assist with discharge planning / needs Appended by Agnieszka Lee on 02/04/2018 16:19 TOWER HOIST OPERATOR: CM called Nikia back @ 1541 to check on status still no answers on auth. CM relayed message to family. CM continues to follow and assist with discharge planning / needs. DCP- Discharge Planning Updated by [email or web address]: Agnieszka Lee on 02/01/18 11:[address] CM called and left message with LTACH intake to find out about auth from [facility].CM will continue to follow and assist as needed with discharge planning / needs. DCP- Discharge Planning Updated by [email or web address]: Margaret Sibley on 01/31/18 1:[address] Patient Name: TYLER CHANEY Admission Status: Urgent Accout number: [id number] Admission Date: 01-02-2018 : 1945 Admission Diagnosis:ACUTE RESPIRATORY FAILURE WITH HYPOXIA Attending: ALEJANDRO TORRES Current LOS: 29 Anticipated DC Date: Planned Disposition: Home Primary Insurance: [employer] MEDICARE ADV Discharge Planning Comments: CM SPOKE WITH SABRINA AT [facility], SHE STATED SHE SPOKE WITH TAMRA AT [facility] AND THEY ARE WAITING TO GET AUTH. SABRINA STATES SHE WILL CONTACT US SOON SHE HEARS BACK FROM [facility]. CM WILL FOLLOW AND ASSIST NEEDED. Soap Chipper: Margaret Sibley DCP- Discharge Planning Updated by [id number]: Margaret Sibley on 01/31/18 12:[address] Patient Name: TYLER CHANEY Admission Status: Urgent Accout number: [id number] Admission Date: 01-02-2018 : 1945 Admission Diagnosis:ACUTE RESPIRATORY FAILURE WITH HYPOXIA Attending: ALEJANDRO TORRES Current LOS: 29 Anticipated DC Date: Planned Disposition: Home Primary Insurance: [employer] MEDICARE ADV Discharge Planning Comments: CM CALLED NIKIA WITH [facility] AT [phone], NO ANSWER, LEFT VOICE MAIL. CM WAITING FOR RETURN CALL. CM ATTEMPTED TO CALL NIKIA TWICE. Soap Chipper: Margaret Sibley DCP- Discharge Planning Updated by [id number]: Agnieszka Lee on 01/30/18 4:[address] CM called and spoke with Nikia to check to see if she had received auth for placement for LTACH. Nikia stated she hasn't heard from [facility] yet. She stated she would try to call them back today. Nikia stated that she would notify CM as soon as she hears something. CM will continue to follow and assist with discharge planning / needs. DCP- Discharge Planning Updated by [id number]: Agnieszka Lee on 01/29/18 2:[address] CM called and spoke with Nikia [phone] regarding placement. Nikia stated that she had spoke with [employer] and they informed her that it could be up to 14days before they replied to auth request. Nikia stated that she plans on calling them everyday to check on status. CM will continue to follow and assist with discharge planning / needs. DCP- Discharge Planning Updated by [email or web address]: Agnieszka Lee on 01/28/18 5:[address] CM called and spoke with Nikia at [facility] in this am. Nikia stated that she was awaiting approval from [facility]. She stated that once she got approval that the patient should meet criteria and could be transferred. Nikia called back 10 mins later stated that [facility] was requesting more information. CM sent updated clinicals. CM will continue to follow and assist as needed with discharge planning / needs. DCP- Discharge Planning Updated by [id number]: Agnieszka Lee on 01/25/18 10:[address] CM spoke with Nikia at [facility] in this am. She did receive ss# CM faxed updated records. Nikia stated that she was sending paperwork to [facility] and hopefully we could transfer on Sunday. CM will continue to follow and assist with discharge planning/needs DCP- Discharge Planning Updated by [id number]: Agnieszka Lee on 01/24/18 7:[address] CM RECIEVED CALL THIS AM FROM NIKIA ([facility]) THAT SHE HAD RECIEVED PATIENTS RECORDS AND REFERAL BUT IT WAS LACKING SOCIAL SECURITY NUMBER. CM ATTEMPTED TO GET IN TOUCH WITH SON TO SEE IF HE HAD PATIENT SS#. CM RECIEVED SS# LATER TODAY AND A MESSAGE WAS LEFT WITH NIKIA AT [facility]. CM WILL CHECK BACK IN THE AM DCP- Discharge Planning Updated by [email or web address]: Agnieszka Lee on 01/23/18 4:[address] CM spoke with patients joanne Davis regarding LTACH placement. [facility] LTACH facilities and decided upon [facility] in [place]. CM called and spoke with Nikia earlier today to see if they had any vent bed availability she said yes. CM explained that we may have a referral for later today. CM called facility and faxed records. CM awaiting on approval decision. CM will continue to follow and assist with discharge planning / needs. DCP- Discharge Planning Updated by [id number]: Agnieszka Lee on 01/07/18 3:[address] Patient Name: TYLER CHANEY Admission Status: Urgent Accout number: [id number] Admission Date: 01-02-2018 : 1945 Admission Diagnosis:ACUTE RESPIRATORY FAILURE WITH HYPOXIA Attending: ALEJANDRO TORRES Current LOS: 5 Anticipated DC Date: Planned Disposition: Home Primary Insurance: [facility] MEDICARE ADV Discharge Planning Comments: CM met with daughter Suzy and son Lior. Patient is currently still on ventilator. Daughter states she knows he will not be able to stay alone any more. She states that he lives next door to many of his relatives. Currently unsure of disposition at this time. Patient is still in critical condition. CM will continue to follow and assist as needed with discharge planning / needs. Soap Chipper: Agnieszka Lee DCPIA - Discharge Planning Initial Assessment Updated by [email or web address]: Agnieszka Lee on 01/07/18 4:06 pm * Is the patient Alert and Oriented? No * How many steps to enter\exit or inside your home? * PCP Unknown * Preadmission Environment Home Alone * ADLs Independent * Equipment None * List name and contact numbers for known caregivers / representatives who currently or will assist patient after discharge: Lior Chaney [phone] * Verbal permission to speak to the caregivers and representatives has been obtained from the patient. N/A * Community resources currently utilized None * Additional services required to return to the preadmission environment? No * Can the patient safely return to the preadmission environment? Yes * Has this patient been hospitalized within the prior 30 days at any hospital? No Last DP export: 02/04/18 3:25 Patient Name: TYLER CHANEY Page 21900 at 1236 All edits/amendments must be made on the electronic document DICTATION DATE: 02/05/18 1235 PARAMEDIC RN: JOEL 02/05/18 1235 RPT#: [id number] CO DATE: STATUS: ADM IN [facility] [address] [place] [address] END OF REPORT
--- NOTE | ~2018-01-02 | MORECARE ---
CASE MANAGEMENT DISCHARGE SUMMARY PATIENT: TYLER CHANEY UNIT: [id number] ADM DATE: 01/02/18 AGE: 72 : 45 SEX: M ROOM/BED: D.07 AUTHOR: JOSE ANTONIO,DOC PHYSICIAN: REFERRING PHYSICIAN: ALEJANDRO TORRES MD DATE OF SERVICE: 01/25/18 Discharge Plan Patient Name: TYLER CHANEY Facility: [facility]:[place] : 1945 Planned Disposition: Home Anticipated Discharge Date: Discharge Date: Expected LOS: Initial Reviewer: [email or web address] Initial Review Date: 01/02/2018 Generated: 01/25/18 12:01 pm Comments DCP- Discharge Planning Updated by [id number]: Agnieszka Lee on 01/25/18 10:[address] CM spoke with Nikia at [facility] in this am. She did receive ss# CM faxed updated records. Nikia stated that she was sending paperwork to [facility] and hopefully we could transfer on Sunday. CM will continue to follow and assist with discharge planning/needs DCP- Discharge Planning Updated by [email or web address]: Agneiszka Lee on 01/24/18 7:[address] CM RECIEVED CALL THIS AM FROM NIKIA ([facility]) THAT SHE HAD RECIEVED PATIENTS RECORDS AND REFERAL BUT IT WAS LACKING SOCIAL SECURITY NUMBER. CM ATTEMPTED TO GET IN TOUCH WITH SON TO SEE IF HE HAD PATIENT SS#. CM RECIEVED SS# LATER TODAY AND A MESSAGE WAS LEFT WITH NIKIA AT [facility]. CM WILL CHECK BACK IN THE AM DCP- Discharge Planning Updated by [id number]: Agnieszka Lee on 01/23/18 4:[address] CM spoke with patients joanne Davis regarding LTACH placement. [facility] research LTACH facilities and decided upon [facility] in [place]. CM called and spoke with Nikia earlier today to see if they had any vent bed availability she said yes. CM explained that we may have a referral for later today. CM called facility and faxed records. CM awaiting on approval decision. CM will continue to follow and assist with discharge planning / needs. DCP- Discharge Planning Updated by [id number]: Agnieszka Lee on 01/07/18 3:[address] Patient Name: TYLER CHANEY Admission Status: Urgent Accout number: [id number] Admission Date: 01-02-2018 : 1945 Admission Diagnosis:ACUTE RESPIRATORY FAILURE WITH HYPOXIA Attending: ALEJANDRO TORRES Current LOS: 5 Anticipated DC Date: Planned Disposition: Home Primary Insurance: [employer] ADV Discharge Planning Comments: CM met with daughter Suzy and son Lior. Patient is currently still on ventilator. Daughter states she knows he will not be able to stay alone any more. She states that he lives next door to many of his relatives. Currently unsure of disposition at this time. Patient is still in critical condition. CM will continue to follow and assist as needed with discharge planning / needs. Food Service Associate: Agnieszka Lee DCPIA - Discharge Planning Initial Assessment Updated by [id number]: Agnieszka Lee on 01/07/18 4:06 pm * Is the patient Alert and Oriented? No * How many steps to enter\exit or inside your home? * PCP Unknown * Preadmission Environment Home Alone * ADLs Independent * Equipment None * List name and contact numbers for known caregivers / representatives who currently or will assist patient after discharge: Lior Chaney [phone] * Verbal permission to speak to the caregivers and representatives has been obtained from the patient. N/A * Community resources currently utilized None * Additional services required to return to the preadmission environment? No * Can the patient safely return to the preadmission environment? Yes * Has this patient been hospitalized within the prior 30 days at any hospital? No Last DP export: 01/24/18 7:58 Patient Name: TYLER CHANEY Page 16622 at 1101 All edits/amendments must be made on the electronic document DICTATION DATE: 01/25/18 1101 RN MIDWIFE: JOEL 01/25/18 1101 RPT#: [id number] DC DATE: STATUS: ADM IN [facility] [address] [place] [address] END OF REPORT
--- NOTE | ~2018-01-02 | MORECARE ---
CASE MANAGEMENT DISCHARGE SUMMARY PATIENT: TYLER CHANEY UNIT: [id number] ADM DATE: 01/02/18 AGE: 72 : 45 SEX: M ROOM/BED: D.[facility] AUTHOR: JOSE ANTONIO,DOC PHYSICIAN: REFERRING PHYSICIAN: ALEJANDRO TORRES MD DATE OF SERVICE: 01/23/18 Discharge Plan Patient Name: TYLER CHANEY Facility: [facility]:[place] : 1945 Planned Disposition: Home Anticipated Discharge Date: Discharge Date: Expected LOS: Initial Reviewer: [id number] Initial Review Date: 01/02/2018 Generated: 01/23/18 6:36 pm Comments DCP- Discharge Planning Updated by [email or web address]: Agnieszka Lee on 01/23/18 4:[address] CM spoke with patients joanne Davis regarding LTACH placement. [facility] LTACH facilities and decided upon [facility] in [place]. CM called and spoke with [facility] earlier today to see if they had any vent bed availability she said yes. CM explained that we may have a referral for later today. CM called facility and faxed records. CM awaiting on approval decision. CM will continue to follow and assist with discharge planning / needs. DCP- Discharge Planning Updated by [id number]: Agnieszka Lee on 01/07/18 3:[address] Patient Name: TYLER CHANEY Admission Status: Urgent Accout number: [id number] Admission Date: 01-02-2018 : 1945 Admission Diagnosis:ACUTE RESPIRATORY FAILURE WITH HYPOXIA Attending: ALEJANDRO TORRES Current LOS: 5 Anticipated DC Date: Planned Disposition: Home Primary Insurance: [employer] ADV Discharge Planning Comments: CM met with daughter Suzy and son Lior. Patient is currently still on ventilator. Daughter states she knows he will not be able to stay alone any more. She states that he lives next door to many of his relatives. Currently unsure of disposition at this time. Patient is still in critical condition. CM will continue to follow and assist as needed with discharge planning / needs. Brick Maker: Agnieszka Lee DCPIA - Discharge Planning Initial Assessment Updated by [email or web address]: Agnieszka Lee on 01/07/18 4:06 pm * Is the patient Alert and Oriented? No * How many steps to enter\exit or inside your home? * PCP Unknown * Preadmission Environment Home Alone * ADLs Independent * Equipment None * List name and contact numbers for known caregivers / representatives who currently or will assist patient after discharge: Lior Chaney [phone] * Verbal permission to speak to the caregivers and representatives has been obtained from the patient. N/A * Community resources currently utilized None * Additional services required to return to the preadmission environment? No * Can the patient safely return to the preadmission environment? Yes * Has this patient been hospitalized within the prior 30 days at any hospital? No Last DP export: 01/23/18 4:22 Patient Name: TYLER CHANEY Page 92347 at 1736 All edits/amendments must be made on the electronic document DICTATION DATE: 01/23/181735 BLANKET FOLDER: JOEL 01/23/181735 RPT#: [id number] DC DATE: STATUS: ADM IN [facility] [address] [place] [address] END OF REPORT
--- NOTE | ~2018-01-02 | OP ---
PATIENT NAME: TYLER CHANEY MEDICAL RECORD: [id number] :45 LOCATION:D.[facility] D.CV07 ADMISSION DATE:01/02/18 SURGEON: NASIM MCNEAL MD DATE OF OPERATION: 01/11/2018 PREOPERATIVE DIAGNOSES: 1. Ventilatory failure requiring prolonged mechanical ventilation. 2. Status post code blue resuscitation. POSTOPERATIVE DIAGNOSES: 1. Ventilatory failure requiring prolonged mechanical ventilation. 2. Status post code blue resuscitation 3. Thick mucopurulent material in the tracheobronchial tree worse on the right. 4. Multiple small gastric polyps. 5. Moderate pangastritis with erosions. PROCEDURES: 1. Diagnostic and therapeutic bronchoscopy with bronchoalveolar lavage. 2. Percutaneous tracheostomy placement, 8 mm. 3. Esophagogastroduodenoscopy with antral biopsies. 4. Percutaneous endoscopic gastrostomy tube placement, 20 Arabic. SURGEON: Nasim Mcneal MD DORMITORY COUNSELOR: None. BLOOD LOSS: Less than 25 cc. ANESTHESIA: General. COMPLICATIONS: None. The risks, possible complications, and alternatives to procedure were explained to the patient's family. They elected to proceed. OPERATIVE COURSE: The patient was conveyed to the operating room electively on 01/11/2018. General anesthesia was induced by the anesthesia staff. A bite block was inserted. A gastroscope was inserted into the mouth. It was advanced easily into the hypopharynx. The esophagus was easily intubated as were the stomach and duodenum. Upon withdrawal, retroflexed and angulus views were obtained. Antral biopsies were obtained to rule out H. pylori. I then withdrew into the fundus of the stomach. The anterior abdominal wall was then cleansed. I indented the anterior abdominal wall and was able to visualize this through the endoscope. In the left upper quadrant, a small skin incision was accomplished. Through the skin incision, I advanced an Angiocath. I punctured the fundus of the anterior stomach on the first try. Through the Angiocath, I advanced a wire. The wire was grasped with an endoscopic snare and was withdrawn out through the mouth. The wire was attached to a pull-type gastrostomy tube, which was then pulled into place. I re-endoscoped the patient's esophagus and stomach. There had been no evidence of false passage or perforation. The endoscope was then withdrawn under direct vision. The hub and flange devices were attached to the gastrostomy tube. OPERATIVE REPORT [id number] TYLER CHANEY Attention was then turned to the bronchoscopy and percutaneous tracheostomy. The neck was extended. The neck was sterilely prepped and draped. The bronchoscopic adapter was applied to the endotracheal tube. Through the endotracheal tube, I advanced the bronchoscope. Utilizing syringes of saline, I performed a bronchoalveolar lavage of all of the segmental bronchi until they were all free of mucopurulent debris. I was surprised at the thickness of the mucopurulent debris. Diffuse bronchitis was present throughout the tracheobronchial tree. I then incised the anterior neck inferior to the larynx. I dissected down to the trachea. I identified the second tracheal cartilage. I had the nurse senior visual designer pull back on the endotracheal tube as well as the bronchoscope. While visualizing this bronchoscopically, I indented the anterior portion of the trachea at the second tracheal ring. I then punctured the trachea with an Angiocath. I advanced the Angiocath. Through the Angiocath, I advanced a wire distally down the trachea and into one of the main stem bronchi. Over the wire, I dilated to a larger size. The tracheostomy tube, which had been loaded on an introduction device was advanced down over the wire and into the trachea. I inflated the balloon. The wire and tracheostomy introduction device were then removed. I then quickly performed a bronchoscopy through the tracheostomy tube. It was well placed. We then began ventilating the patient through the tracheostomy tube. The flange of the tracheostomy tube was sutured to the surrounding skin with 3-0 nylons. I then closed some of the skin around the tracheostomy tube with 3-0 Vicryls. The patient was then conveyed back to the intensive care unit in critical, but stable condition. TRANSINT:[id number] Voice Confirmation ID: [id number] DOCUMENT ID: [id number] NASIM MCNEAL MD at 1653 CC: MOISES QUINTERO MD, ALEJANDRO TORRES MD and TORREY ACEVES MD [id number] DICTATION DATE: 01/11/182103 REPAIR SERVICE DISPATCHER: 01/11/182151 ADM IN [facility] [id number] [place] [address]
--- NOTE | ~2018-01-02 | MORECARE ---
CASE MANAGEMENT DISCHARGE SUMMARY PATIENT: TYLER CHANEY UNIT: [id number] ADM DATE: 01/02/18 AGE: 72 : 45 SEX: M ROOM/BED: D.2316 AUTHOR: JOSE ANTONIO,DOC PHYSICIAN: REFERRING PHYSICIAN: ALEJANDRO TORRES MD DATE OF SERVICE: 02/05/18 Discharge Plan Patient Name: TYLER CHANEY [facility] 1945 Planned Disposition: Home Anticipated Discharge Date: Discharge Date: Expected LOS: Initial Reviewer: [email or web address] Initial Review Date: 01/02/2018 Generated: 02/05/18 4:29 pm Comments DCP- Discharge Planning Updated by [email or web address]: Agnieszka Lee on 02/05/18 2:[address] CM received call from [facility] that patient had been denied per [facility] for LTACH placement. CM has requested a copy for denial to see if we can appeal. CM will continue to follow and assist with discharge planning / needs. Appended by Agnieszka Lee on 02/05/2018 15:25 TORPEDO SHOOTER: CM received call back from [facility] she stated that she would bring denial letter in am and discuss the next steps.CM will continue to follow and assist with discharge planning / needs. DCP- Discharge Planning Updated by [email or web address]: Agnieszka Lee on 02/04/18 3:[address] CM called and spoke with Nikia @ [facility]. She stated that she would call [facility] again today to see if they had made a determination. Nikia stated that last week that [facility] had stated that they thought the records sent for auth to admit was clinicals sent from this facility for continued stay review. CM will continue to follow and assist with discharge planning / needs Appended by Agnieszka Lee on 02/04/2018 16:19 TORPEDO SHOOTER: CM called Nikia back @ 4135 to check on status still no answers on auth. CM relayed message to family. CM continues to follow and assist with discharge planning / needs. DCP- Discharge Planning Updated by [email or web address]: Agnieszka Lee on 02/01/18 11:[address] CM called and left message with [facility]ACH intake to find out about auth from [facility].CM will continue to follow and assist as needed with discharge planning / needs. DCP- Discharge Planning Updated by [email or web address]: Margaret Sibley on 01/31/18 1:[address] Patient Name: TYLER CHANEY Admission Status: Urgent Accout number: [id number] Admission Date: 01-02-2018 : 1945 Admission Diagnosis:ACUTE RESPIRATORY FAILURE WITH HYPOXIA Attending: ALEJANDRO TORRES Current LOS: 29 Anticipated DC Date: Planned Disposition: Home Primary Insurance: [employer] MEDICARE ADV Discharge Planning Comments: CM SPOKE WITH SABRINA AT [facility], SHE STATED SHE SPOKE WITH TAMRA AT [facility] AND THEY ARE WAITING TO GET AUTH. SABRINA STATES SHE WILL CONTACT US [facility]ON [facility] CM WILL FOLLOW AND ASSIST NEEDED. Green Building Materials Distributor: Margaret Sibley DCP- Discharge Planning Updated by [email or web address]: Margaret Sibley on 01/31/18 12:[address] Patient Name: TYLER CHANEY Admission Status: Urgent Accout number: [id number] Admission Date: 01-02-2018 : 1945 Admission Diagnosis:ACUTE RESPIRATORY FAILURE WITH HYPOXIA Attending: ALEJANDRO TORRES Current LOS: 29 Anticipated DC Date: Planned Disposition: Home Primary Insurance: [employer] MEDICARE ADV Discharge Planning Comments: CM CALLED NIKIA WITH [facility] AT [phone], NO ANSWER, LEFT VOICE MAIL. CM WAITING FOR RETURN CALL. CM ATTEMPTED TO CALL NIKIA TWICE. Green Building Materials Distributor: Margaret Sibley DCP- Discharge Planning Updated by [email or web address]: Agnieszka Lee on 01/30/18 4:[address] CM called and spoke with Nikia to check to see if she had received auth for placement for LTACH. Nikia stated she hasn't heard from [facility] yet. She stated she would try to call them back today. Nikia stated that she would notify CM as soon as she hears something. CM will continue to follow and assist with discharge planning / needs. DCP- Discharge Planning Updated by [email or web address]: Agnieszka Lee on 01/29/18 2:[address] CM called and spoke with Nikia [phone] regarding placement. Nikia stated that she had spoke with [facility] and they informed her that it could be up to 14days before they replied to auth request. Nikia stated that she plans on calling them everyday to check on status. CM will continue to follow and assist with discharge planning / needs. DCP- Discharge Planning Updated by [email or web address]: Agnieszka Lee on 01/28/18 5:[address] CM called and spoke with Nikia at [facility] in this am. Nikia stated that she was awaiting approval from [facility]. She stated that once she got approval that the patient should meet criteria and could be transferred. Nikia called back 10 mins later stated that [facility] was requesting more information. CM sent updated clinicals. CM will continue to follow and assist as needed with discharge planning / needs. DCP- Discharge Planning Updated by [email or web address]: Agnieszka Lee on 01/25/18 10:[address] CM spoke with Nikia at [facility] in this am. She did receive ss# CM faxed updated records. Nikia stated that she was sending paperwork to [facility] and hopefully we could transfer on Sunday. CM will continue to follow and assist with discharge planning/needs DCP- Discharge Planning Updated by [email or web address]: Agnieszka Lee on 01/24/18 7:[address] CM RECIEVED CALL THIS AM FROM NIKIA ([facility]) THAT SHE HAD RECIEVED PATIENTS RECORDS AND REFERAL BUT IT WAS LACKING SOCIAL SECURITY NUMBER. CM ATTEMPTED TO GET IN TOUCH WITH SON TO SEE IF HE HAD PATIENT SS#. CM RECIEVED SS# LATER TODAY AND A MESSAGE WAS LEFT WITH NIKIA AT [facility]. CM WILL CHECK BACK IN THE AM DCP- Discharge Planning Updated by [email or web address]: Agnieszka Lee on 01/23/18 4:[address] CM spoke with patients joanne Davis regarding LTACH placement. Elida research LTACH facilities and decided upon [facility] in [place]. CM called and spoke with Nikia earlier today to see if they had any vent bed availability she said yes. CM explained that we may have a referral for later today. CM called facility and faxed records. CM awaiting on approval decision. CM will continue to follow and assist with discharge planning / needs. DCP- Discharge Planning Updated by [email or web address]: Agnieszka Lee on 01/07/18 3:[address] Patient Name: TYLER CHANEY Admission Status: Urgent Accout number: [id number] Admission Date: 01-02-2018 : 1945 Admission Diagnosis:ACUTE RESPIRATORY FAILURE WITH HYPOXIA Attending: ALEJANDRO TORRES Current LOS: 5 Anticipated DC Date: Planned Disposition: Home Primary Insurance: [employer] MEDICARE ADV Discharge Planning Comments: CM met with daughter Suzy and son Lior. Patient is currently still on ventilator. Daughter states she knows he will not be able to stay alone any more. She states that he lives next door to many of his relatives. Currently unsure of disposition at this time. Patient is still in critical condition. CM will continue to follow and assist as needed with discharge planning / needs. Green Building [employer] Distributor: Agnieszka Lee DCPIA - Discharge Planning Initial Assessment Updated by [email or web address]: Agnieszka Lee on 01/07/18 4:06 pm * Is the patient Alert and Oriented? No * How many steps to enter\exit or inside your home? * PCP Unknown * Preadmission Environment Home Alone * ADLs Independent * Equipment None * List name and contact numbers for known caregivers / representatives who currently or will assist patient after discharge: Lior Chaney [phone] * Verbal permission to speak to the caregivers and representatives has been obtained from the patient. N/A * Community resources currently utilized None * Additional services required to return to the preadmission environment? No * Can the patient safely return to the preadmission environment? Yes * Has this patient been hospitalized within the prior 30 days at any hospital? No Last DP export: 02/05/18 11:36 Patient Name: TYLER CHANEY Page [phone] at 1529 All edits/amendments must be made on the electronic document DICTATION DATE: 02/05/18 1529 CITIZENSHIP INSTRUCTOR: JOEL 02/05/18 1529 RPT#: [id number] DC DATE: STATUS: ADM IN [facility] [address] [place] [address] END OF REPORT
--- NOTE | ~2018-01-02 | MORECARE ---
CASE MANAGEMENT DISCHARGE SUMMARY PATIENT: TYLER CHANEY UNIT: [id number] ADM DATE: 01/02/18 AGE: 72 : 45 SEX: M ROOM/BED: D.2316 AUTHOR: KAREN BRADY PHYSICIAN: REFERRING PHYSICIAN: ALEJANDRO TORRES MD DATE OF SERVICE: 02/01/18 Discharge Plan Patient Name: TYLER CHANEY Facility[facility]:[place] : 1945 Planned Disposition: Home Anticipated Discharge Date: Discharge Date: Expected LOS: Initial Reviewer: [email or web address] Initial Review Date: 01/02/2018 Generated: 02/01/18 1:12 pm Comments DCP- Discharge Planning Updated by [email or web address]: Agnieszka Lee on 02/01/18 11:[address] CM called and left message with [facility] intake to find out about auth from [facility].CM will continue to follow and assist as needed with discharge planning / needs. DCP- Discharge Planning Updated by [email or web address]: Margaret Sibley on 01/31/18 1:[address] Patient Name: TYLER CHANEY Admission Status: Urgent Accout number: [id number] Admission Date: 01-02-2018 : 1945 Admission Diagnosis:ACUTE RESPIRATORY FAILURE WITH HYPOXIA Attending: ALEJANDRO TORRES Current LOS: 29 Anticipated DC Date: Planned Disposition: Home Primary Insurance: [employer] MEDICARE ADV Discharge Planning Comments: CM SPOKE WITH SABRINA AT [facility], SHE STATED SHE SPOKE WITH TAMRA AT [facility] AND THEY ARE WAITING TO GET AUTH. SABRINA STATES SHE WILL CONTACT US SOON SHE HEARS BACK FROM [facility]. CM WILL FOLLOW AND ASSIST NEEDED. Health Records Technology Teacher: Margaret Sibley DCP- Discharge Planning Updated by [email or web address]: Margaret Sibley on 01/31/18 12:[address] Patient Name: TYLER CHANEY Admission Status: Urgent Accout number: [id number] Admission Date: 01-02-2018 : 1945 Admission Diagnosis:ACUTE RESPIRATORY FAILURE WITH HYPOXIA Attending: ALEJANDRO TORRES Current LOS: 29 Anticipated DC Date: Planned Disposition: Home Primary Insurance: [employer] MEDICARE ADV Discharge Planning Comments: CM CALLED NIKIA WITH [facility] AT [phone], NO ANSWER, LEFT VOICE MAIL. CM WAITING FOR RETURN CALL. CM ATTEMPTED TO CALL NIKIA TWICE. Health Records Technology Teacher: Margaret Sibley DCP- Discharge Planning Updated by [email or web address]: Agnieszka Lee on 01/30/18 4:[address] CM called and spoke with Nikia to check to see if she had received auth for placement for LTACH. Nikia stated she hasn't heard from [facility] yet. She stated she would try to call them back today. Nikia stated that she would notify CM as soon as she hears something. CM will continue to follow and assist with discharge planning / needs. DCP- Discharge Planning Updated by [email or web address]: Agnieszka Lee on 01/29/18 2:[address] CM called and spoke with Nikia [phone] regarding placement. Nikia stated that she had spoke with [facility] and they informed her that it could be up to 14days before they replied to auth request. Nikia stated that she plans on calling them everyday to check on status. CM will continue to follow and assist with discharge planning / needs. DCP- Discharge Planning Updated by [email or web address]: Agnieszka Lee on 01/28/18 5:[address] CM called and spoke with Nikia at [facility] in this am. Nikia stated that she was awaiting approval from [facility]. She stated that once she got approval that the patient should meet criteria and could be transferred. Nikia called back 10 mins later stated that [facility] was requesting more information. CM sent updated clinicals. CM will continue to follow and assist as needed with discharge planning / needs. DCP- Discharge Planning Updated by [email or web address]: Agnieszka Lee on 01/25/18 10:[address] CM spoke with Nikia at [facility] in this am. She did receive ss# CM faxed updated records. Nikia stated that she was sending paperwork to [facility] and hopefully we could transfer on Sunday. CM will continue to follow and assist with discharge planning/needs DCP- Discharge Planning Updated by [email or web address]: Agnieszka Lee on 01/24/18 7:[address] CM RECIEVED CALL THIS AM FROM NIKIA ([facility]) THAT SHE HAD RECIEVED PATIENTS RECORDS AND REFERAL BUT IT WAS LACKING SOCIAL SECURITY NUMBER. CM ATTEMPTED TO GET IN TOUCH WITH SON TO SEE IF HE HAD PATIENT SS#. CM RECIEVED SS# LATER TODAY AND A MESSAGE WAS LEFT WITH NIKIA AT [facility]. CM WILL CHECK BACK IN THE AM DCP- Discharge Planning Updated by [email or web address]: Agnieszka Lee on 01/23/18 4:[address] CM spoke with patients joanne Davis regarding LTACH placement. Elida research LTACH facilities and decided upon [facility] in [place]. CM called and spoke with Nikia earlier today to see if they had any vent bed availability she said yes. CM explained that we may have a referral for later today. CM called facility and faxed records. CM awaiting on approval decision. CM will continue to follow and assist with discharge planning / needs. DCP- Discharge Planning Updated by [email or web address]: Agnieszka Lee on 01/07/18 3:[address] Patient Name: TYLER CHANEY Admission Status: Urgent Accout number: [id number] Admission Date: 01-02-2018 : 1945 Admission Diagnosis:ACUTE RESPIRATORY FAILURE WITH HYPOXIA Attending: ALEJANDRO TORRES Current LOS: 5 Anticipated DC Date: Planned Disposition: Home Primary Insurance: [employer] MEDICARE ADV Discharge Planning Comments: CM met with daughter Suzy and son Lior. Patient is currently still on ventilator. Daughter states she knows he will not be able to stay alone any more. She states that he lives next door to many of his relatives. Currently unsure of disposition at this time. Patient is still in critical condition. CM will continue to follow and assist as needed with discharge planning / needs. Health Records Technology Teacher: Agnieszka Lee DCPIA - Discharge Planning Initial Assessment Updated by [email or web address]: Agnieszka Lee on 01/07/18 4:06 pm * Is the patient Alert and Oriented? No * How many steps to enter\exit or inside your home? * PCP Unknown * Preadmission Environment Home Alone * ADLs Independent * Equipment None * List name and contact numbers for known caregivers / representatives who currently or will assist patient after discharge: Lior Chaney [phone] * Verbal permission to speak to the caregivers and representatives has been obtained from the patient. N/A * Community resources currently utilized None * Additional services required to return to the preadmission environment? No * Can the patient safely return to the preadmission environment? Yes * Has this patient been hospitalized within the prior 30 days at any hospital? No Last DP export: 01/31/18 1:14 p Patient Name: TYLER CHANEY Page [id number] at 1212 All edits/amendments must be made on the electronic document DICTATION DATE: 02/01/18 1211 CARBIDE TOOL MAKER: JOEL 02/01/18 1211 RPT#: [id number] DC DATE: STATUS: ADM IN [facility] [address] [place] [address] END OF REPORT
--- NOTE | ~2018-01-02 | MORECARE ---
CASE MANAGEMENT DISCHARGE SUMMARY PATIENT: TYLER CHANEY UNIT: [id number] ADM DATE: 01/02/18 AGE: 72 : 45 SEX: M ROOM/BED: D[facility] AUTHOR: JOSE ANTONIODOC PHYSICIAN: REFERRING PHYSICIAN: ALEJANDRO TORRES MD DATE OF SERVICE: 01/23/18 Discharge Plan Patient Name: TYLER CHANEY Facility: [facility]:[place] : 1945 Planned Disposition: Home Anticipated Discharge Date: Discharge Date: Expected LOS: Initial Reviewer: [email or web address] Initial Review Date: 01/02/2018 Generated: 01/23/18 6:22 pm Comments DCP- Discharge Planning Updated by [email or web address]: Agnieszka Lee on 01/07/18 3:[address] Patient Name: TYLER CHANEY Admission Status: Urgent Accout number: [id number] Admission Date: 01-02-2018 : 1945 Admission Diagnosis:ACUTE RESPIRATORY FAILURE WITH HYPOXIA Attending: ALEJANDRO TORRES Current LOS: 5 Anticipated DC Date: Planned Disposition: Home Primary Insurance: [employer] MEDICARE ADV Discharge Planning Comments: CM met with daughter Suzy and son Lior. Patient is currently still on ventilator. Daughter states she knows he will not be able to stay alone any more. She states that he lives next door to many of his relatives. Currently unsure of disposition at this time. Patient is still in critical condition. CM will continue to follow and assist as needed with discharge planning / needs. Vp Scientific Affairs: Agnieszka Lee DCPIA - Discharge Planning Initial Assessment Updated by [email or web address]: Agnieszka Lee on 01/07/18 4:06 pm * Is the patient Alert and Oriented? No * How many steps to enter\exit or inside your home? * PCP Unknown * Preadmission Environment Home Alone * ADLs Independent * Equipment None * List name and contact numbers for known caregivers / representatives who currently or will assist patient after discharge: Lior Chaney [phone] * Verbal permission to speak to the caregivers and representatives has been obtained from the patient. N/A * Community resources currently utilized None * Additional services required to return to the preadmission environment? No * Can the patient safely return to the preadmission environment? Yes * Has this patient been hospitalized within the prior 30 days at any hospital? No External Providers External Provider: Ryan Gonzales [facility] Next Contact Date: Service Request Date: Service Type: Resolution: Reviewer: Comments: Last DP export: 01/07/18 3:23 Patient Name: TYLER CHANEY Page 39828 at 1722 All edits/amendments must be made on the electronic document DICTATION DATE: 01/23/181720 PLANNER CHIEF: JOEL 01/23/181720 RPT#: [id number] DC DATE: STATUS: ADM IN [facility] [address] [place] [address] END OF REPORT
--- NOTE | ~2018-01-02 | MORECARE ---
CASE MANAGEMENT DISCHARGE SUMMARY PATIENT: TYLER CHANEY UNIT: [id number] ADM DATE: 01/02/18 AGE: 72 : 45 SEX: M ROOM/BED: D.2316 AUTHOR: JOSE ANTONIO,DOC PHYSICIAN: REFERRING PHYSICIAN: ALEJANDRO TORRES MD DATE OF SERVICE: 02/11/18 Discharge Plan Patient Name: TYLER CHANEY Facility: [facility]:[place] : 1945 Planned Disposition: Home Anticipated Discharge Date: Discharge Date: Expected LOS: Initial Reviewer: [id number] Initial Review Date: 01/02/2018 Generated: 02/11/18 11:52 am Comments DCP- Discharge Planning Updated by [id number]: Agnieszka Lee on 02/11/18 9:[address] CM CALLED [facility] AGAIN TO ASK ABOUT P2P. CM SPOKE WITH ANAND SHE STATED SHE WOULD EMAIL WOUND CARE CENTER CONSULTANT AGAIN. CM REQUESTED THAT WOUND CARE CENTER CONSULTANT CALL CM PHONE AND THEN SHE WOULD LOCATE PHYSICIAN FOR P2P. CM TO CONTINUE TO FOLLOW AND ASSIST WITH DISCHARGE PLANNING. DCP- Discharge Planning Updated by [id number]: Agnieszka Lee on 02/08/18 2:[address] CM SPOKE WITH AND HE HAS NOT RECIEVED A CALL BACK FROM [facility] FOR P2P. CM CALLED [facility] BACK 02/08/18 @1030. THEY REQUESTED I CALL BACK IF NO RESPONSE BY 1400. CM RETURNED CALL @ 1410 SPOKE WITH ISMAEL. SHE STATED THAT SHE WOULD EMAIL PHYSICIAN HORACE REQUESTED FOR THEM TO CALL [phone]. CM EXPRESSED THAT SHE UNDERSTAND WHY PATIENT COULD BE DENIED SINCE HE IS ON VENT. CM WILL CONTINUE TO FOLLOW AND ASSIST WITH DISCHARGE PLANNING / NEEDS. DCP- Discharge Planning Updated by [id number]: Agnieszka Lee on 02/06/18 1:[address] CM received denial letter from [facility] on LTACH placement. CM spoke with doctor Willams he agrees to do P2P. CM called to set up P2P with [facility] they said that their medical numerical control operator has up to 24 hrs. to call back. CM will continue to follow and assist with discharge planning / needs. DCP- Discharge Planning Updated by [id number]: Agnieszka Lee on 02/05/18 2:[address] CM received call from Sabrina @ [facility] that patient had been denied per [facility] for LTACH placement. CM has requested a copy for denial to see if we can appeal. CM will continue to follow and assist with discharge planning / needs. Appended by Agnieszka Lee on 02/05/2018 15:25 HEEL BRUSHER: CM received call back from [facility] she stated that she would bring denial letter in am and discuss the next steps.CM will continue to follow and assist with discharge planning / needs. DCP- Discharge Planning Updated by [id number]: Agnieszka Lee on 02/04/18 3:[address] CM called and spoke with Nikia @ [facility]. She stated that she would call [facility] again today to see if they had made a determination. Nikia stated that last week that [facility] had stated that they thought the records sent for auth to admit was clinicals sent from this facility for continued stay review. CM will continue to follow and assist with discharge planning / needs Appended by Agnieszka Lee on 02/04/2018 16:19 HEEL BRUSHER: CM called Nikia back @ 1541 to check on status still no answers on auth. CM relayed message to family. CM continues to follow and assist with discharge planning / needs. DCP- Discharge Planning Updated by [id number]: Agnieszka Lee on 02/01/18 11:[address] CM called and left message with LTACH intake to find out about auth from [facility].CM will continue to follow and assist as needed with discharge planning / needs. DCP- Discharge Planning Updated by [id number]: Margaret Sibley on 01/31/18 1:[address] Patient Name: TYLER CHANEY Admission Status: Urgent Accout number: [id number] Admission Date: 01-02-2018 : 1945 Admission Diagnosis:ACUTE RESPIRATORY FAILURE WITH HYPOXIA Attending: ALEJANDRO TORRES Current LOS: 29 Anticipated DC Date: Planned Disposition: Home Primary Insurance: [facility] MEDICARE ADV Discharge Planning Comments: CM SPOKE WITH SABRINA AT [facility], SHE STATED SHE SPOKE WITH TAMRA AT [facility] AND THEY ARE WAITING TO GET AUTH. SABRINA STATES SHE WILL CONTACT US SOON SHE HEARS BACK FROM [facility]. CM WILL FOLLOW AND ASSIST NEEDED. Foam Rubber Curer: Margaret Sibley DCP- Discharge Planning Updated by [email or web address]: Margaret Sibley on 01/31/18 12:[address] Patient Name: TYLER CHANEY Admission Status: Urgent Accout number: [id number] Admission Date: 01-02-2018 : 1945 Admission Diagnosis:ACUTE RESPIRATORY FAILURE WITH HYPOXIA Attending: ALEJANDRO TORRES Current LOS: 29 Anticipated DC Date: Planned Disposition: Home Primary Insurance: [facility] MEDICARE ADV Discharge Planning Comments: CM CALLED NIKIA WITH [facility] AT [phone], NO ANSWER, LEFT VOICE MAIL. CM WAITING FOR RETURN CALL. CM ATTEMPTED TO CALL NIKIA TWICE. Foam Rubber Curer: Margaret Sibley DCP- Discharge Planning Updated by [id number]: Agnieszka Lee on 01/30/18 4:[address] CM called and spoke with Nikia to check to see if she had received auth for placement for LTACH. Nikia stated she hasn't heard from [facility] yet. She stated she would try to call them back today. Nikia stated that she would notify CM as soon as she hears something. CM will continue to follow and assist with discharge planning / needs. DCP- Discharge Planning Updated by [id number]: Agnieszka Lee on 01/29/18 2:[address] CM called and spoke with Nikia [phone] regarding placement. Nikia stated that she had spoke with [facility] and they informed her that it could be up to 14days before they replied to auth request. Nikia stated that she plans on calling them everyday to check on status. CM will continue to follow and assist with discharge planning / needs. DCP- Discharge Planning Updated by [id number]: Agnieszka Lee on 01/28/18 5:[address] CM called and spoke with Nikia at [facility] in this am. Nikia stated that she was awaiting approval from [facility]. She stated that once she got approval that the patient should meet criteria and could be transferred. Nikia called back 10 mins later stated that [facility] was requesting more information. CM sent updated clinicals. CM will continue to follow and assist as needed with discharge planning / needs. DCP- Discharge Planning Updated by [id number]: Agnieszka Lee on 01/25/18 10:[address] CM spoke with Nikia at [facility] in [place] this am. She did receive ss# CM faxed updated records. Nikia stated that she was sending paperwork to [employer] and hopefully we could transfer on Sunday. CM will continue to follow and assist with discharge planning/needs DCP- Discharge Planning Updated by [id number]: Agnieszka Lee on 01/24/18 7:[address] CM RECIEVED CALL THIS AM FROM NIKIA ([facility]) THAT SHE HAD RECIEVED PATIENTS RECORDS AND REFERAL BUT IT WAS LACKING SOCIAL SECURITY NUMBER. CM ATTEMPTED TO GET IN TOUCH WITH SON TO SEE IF HE HAD PATIENT SS#. CM RECIEVED SS# LATER TODAY AND A MESSAGE WAS LEFT WITH NIKIA AT [facility]. CM WILL CHECK BACK IN THE AM DCP- Discharge Planning Updated by [email or web address]: Agnieszka Lee on 01/23/18 4:[address] CM spoke with patients joanne Davis regarding LTACH placement. [facility] research LTACH facilities and decided upon [facility] in [place]. CM called and spoke with Nikia earlier today to see if they had any vent bed availability she said yes. CM explained that we may have a referral for later today. CM called facility and faxed records. CM awaiting on approval decision. CM will continue to follow and assist with discharge planning / needs. DCP- Discharge Planning Updated by [id number]: Agnieszka Lee on 01/07/18 3:[address] Patient Name: TYLER CHANEY Admission Status: Urgent Accout number: [id number] Admission Date: 01-02-2018 : 1945 Admission Diagnosis:ACUTE RESPIRATORY FAILURE WITH HYPOXIA Attending: ALEJANDRO TORRES Current LOS: 5 Anticipated DC Date: Planned Disposition: Home Primary Insurance: [employer] MEDICARE ADV Discharge Planning Comments: CM met with daughter Suzy and son Lior. Patient is currently still on ventilator. Daughter states she knows he will not be able to stay alone any more. She states that he lives next door to many of his relatives. Currently unsure of disposition at this time. Patient is still in critical condition. CM will continue to follow and assist as needed with discharge planning / needs. Foam Rubber Curer: Agnieszka Lee DCPIA - Discharge Planning Initial Assessment Updated by [id number]: Agnieszka Lee on 01/07/18 4:06 pm * Is the patient Alert and Oriented? No * How many steps to enter\exit or inside your home? * PCP Unknown * Preadmission Environment Home Alone * ADLs Independent * Equipment None * List name and contact numbers for known caregivers / representatives who currently or will assist patient after discharge: Lior Chaney [phone] * Verbal permission to speak to the caregivers and representatives has been obtained from the patient. N/A * Community resources currently utilized None * Additional services required to return to the preadmission environment? No * Can the patient safely return to the preadmission environment? Yes * Has this patient been hospitalized within the prior 30 days at any hospital? No Last DP export: 02/08/18 2:08 Patient Name: TYLER CHANEY Page [id number] at 1053 All edits/amendments must be made on the electronic document DICTATION DATE: 02/11/18 105 CASUALTY CLAIMS SUPERVISOR: JOEL 02/11/18 105 RPT#: [id number] DC DATE: STATUS: ADM IN [facility] [address] [place] [address] END OF REPORT
--- NOTE | ~2018-01-02 | MORECARE ---
CASE MANAGEMENT DISCHARGE SUMMARY PATIENT: TYLER CHANEY UNIT: [id number] ADM DATE: 01/02/18 AGE: 72 : 45 SEX: M ROOM/BED: D.2316 AUTHOR: JOSE ANTONIO,DOC PHYSICIAN: REFERRING PHYSICIAN: ALEJANDRO TORRES MD DATE OF SERVICE: 02/13/18 Discharge Plan Patient Name: TYLER CHANEY Facility: [facility]:[place] : 1945 Planned Disposition: Home Anticipated Discharge Date: Discharge Date: 02/12/2018 Expected LOS: Initial Reviewer: [email or web address] Initial Review Date: 01/02/2018 Generated: 02/13/18 12:49 pm Comments DCP- Discharge Planning Updated by [email or web address]: Agnieszka Lee on 02/11/18 12:[address] CM received call back from Dr. Evelyne Michaud from [facility] for P2P CM located Dr. De Paz and he spoke with Dr. Michaud. CM spoke with Dr. Michaud and patient has been approved for LTACH placement. CM called and left message with [facility] that patient has been approved. Sabrina with [facility] here for current records she stated that her associate spa director would need to do a P2P with Dr. De Paz prior to admission. CM will continue to follow and assist with discharge planning / needs. DCP- Discharge Planning Updated by [email or web address]: Agnieszka Lee on 02/11/18 9:[address] CM CALLED [facility] AGAIN TO ASK ABOUT P2P. CM SPOKE WITH ANAND SHE STATED SHE WOULD EMAIL CEMENTER MACHINE APPLICATOR AGAIN. CM REQUESTED THAT CEMENTER MACHINE APPLICATOR CALL CM PHONE AND THEN SHE WOULD LOCATE PHYSICIAN FOR P2P. CM TO CONTINUE TO FOLLOW AND ASSIST WITH DISCHARGE PLANNING. DCP- Discharge Planning Updated by [id number]: Agnieszka Lee on 02/08/18 2:[address] CM SPOKE WITH AND HE HAS NOT RECIEVED A CALL BACK FROM [facility] FOR P2P. CM CALLED [facility] BACK 02/08/18 @1030. THEY REQUESTED I CALL BACK IF NO RESPONSE BY 1400. CM RETURNED CALL @ 1410 SPOKE WITH ISMAEL. SHE STATED THAT SHE WOULD EMAIL PHYSICIAN CM REQUESTED FOR THEM TO CALL [phone]. CM EXPRESSED THAT SHE UNDERSTAND WHY PATIENT COULD BE DENIED SINCE HE IS ON VENT. CM WILL CONTINUE TO FOLLOW AND ASSIST WITH DISCHARGE PLANNING / NEEDS. DCP- Discharge Planning Updated by [id number]: Agnieszka Lee on 02/06/18 1:[address] CM received denial letter from [facility] on LTACH placement. CM spoke with doctor Екатерина he agrees to do P2P. CM called to set up P2P with [facility] they said that their medical diagnostic radiographer has up to 24 hrs. to call back. CM will continue to follow and assist with discharge planning / needs. DCP- Discharge Planning Updated by [id number]: Agnieszka Lee on 02/05/18 2:[address] CM received call from Sabrina @ [facility] that patient had been denied per [facility] for LTACH placement. CM has requested a copy for denial to see if we can appeal. CM will continue to follow and assist with discharge planning / needs. Appended by Agnieszka Lee on 02/05/2018 15:25 TRAFFIC CONTROL OPERATOR: CM received call back from [facility] she stated that she would bring denial letter in am and discuss the next steps.CM will continue to follow and assist with discharge planning / needs. DCP- Discharge Planning Updated by [id number]: Agnieszka Lee on 02/04/18 3:[address] CM called and spoke with Zenaida @ [facility]. She stated that she would call [facility] again today to see if they had made a determination. Zenaida stated that last week that [facility] had stated that they thought the records sent for auth to admit was clinicals sent from this facility for continued stay review. CM will continue to follow and assist with discharge planning / needs Appended by Agnieszka Lee on 02/04/2018 16:19 TRAFFIC CONTROL OPERATOR: CM called Zenaida back @ 5711 to check on status still no answers on auth. CM relayed message to family. CM continues to follow and assist with discharge planning / needs. DCP- Discharge Planning Updated by [id number]: Agnieszka Lee on 02/01/18 11:[address] CM called and left message with LT[facility] intake to find out about auth from [facility].CM will continue to follow and assist as needed with discharge planning / needs. DCP- Discharge Planning Updated by [id number]: Margaret Sibley on 01/31/18 1:[address] Patient Name: TYLER CHANEY Admission Status: Urgent Accout number: [id number] Admission Date: 01-02-2018 : 1945 Admission Diagnosis:ACUTE RESPIRATORY FAILURE WITH HYPOXIA Attending: ALEJANDRO TORRES Current LOS: 29 Anticipated DC Date: Planned Disposition: Home Primary Insurance: [employer] MEDICARE ADV Discharge Planning Comments: CM SPOKE WITH SABRINA AT [facility], SHE STATED SHE SPOKE WITH TAMRA AT [facility] AND THEY ARE WAITING TO GET AUTH. SABRINA STATES SHE WILL CONTACT US SOON SHE HEARS BACK FROM [facility]. CM WILL FOLLOW AND ASSIST NEEDED. Sexologist: Margaret Sibley DCP- Discharge Planning Updated by [id number]: Margaret Sibley on 01/31/18 12:[address] Patient Name: TYLER CHANEY Admission Status: Urgent Accout number: [id number] Admission Date: 01-02-2018 : 1945 Admission Diagnosis:ACUTE RESPIRATORY FAILURE WITH HYPOXIA Attending: ALEJANDRO TORRES Current LOS: 29 Anticipated DC Date: Planned Disposition: Home Primary Insurance: [employer] MEDICARE ADV Discharge Planning Comments: CM CALLED ZENAIDA WITH [facility] AT [phone], NO ANSWER, LEFT VOICE MAIL. CM WAITING FOR RETURN CALL. CM ATTEMPTED TO CALL ZENAIDA TWICE. Sexologist: Margaret Sibley DCP- Discharge Planning Updated by [id number]: Agnieszka Lee on 01/30/18 4:[address] CM called and spoke with Zenaida to check to see if she had received auth for placement for LTACH. Zenaida stated she [facility]. She stated she would try to call them back today. Zenaida stated that she would notify CM as soon as she hears something. CM will continue to follow and assist with discharge planning / needs. DCP- Discharge Planning Updated by [email or web address]: Agnieszka Lee on 01/29/18 2:[address] CM called and spoke with Zenaida [phone] regarding placement. Zenaida stated that she had spoke with [employer] and they informed her that it could be up to 14days before they replied to auth request. Zenaida stated that she plans on calling them everyday to check on status. CM will continue to follow and assist with discharge planning / needs. DCP- Discharge Planning Updated by [email or web address]: Agnieszka Lee on 01/28/18 5:[address] CM called and spoke with Zenaida at [facility] in this am. Zenaida stated that she was awaiting approval from [facility]. She stated that once she got approval that the patient should meet criteria and could be transferred. Zenaida called back 10 mins later stated that [facility] was requesting more information. CM sent updated clinicals. CM will continue to follow and assist as needed with discharge planning / needs. DCP- Discharge Planning Updated by [id number]: Agnieszka Lee on 01/25/18 10:[address] CM spoke with Zenaida at [facility] in this am. She did receive ss# CM faxed updated records. Zenaida stated that she was sending paperwork to [facility] and hopefully we could transfer on Sunday. CM will continue to follow and assist with discharge planning/needs DCP- Discharge Planning Updated by [id number]: Agnieszka Lee on 01/24/18 7:[address] CM RECIEVED CALL THIS AM FROM ZENAIDA ([facility]) THAT SHE HAD RECIEVED PATIENTS RECORDS AND REFERAL BUT IT WAS LACKING SOCIAL SECURITY NUMBER. CM ATTEMPTED TO GET IN TOUCH WITH SON TO SEE IF HE HAD PATIENT SS#. CM RECIEVED SS# LATER TODAY AND A MESSAGE WAS LEFT WITH ZENAIDA AT [facility]. CM WILL CHECK BACK IN THE AM DCP- Discharge Planning Updated by [id number]: Agnieszka Lee on 01/23/18 4:[address] CM spoke with patients joanne Davis regarding LTACH placement. [facility] in [place]. CM called and spoke with Zenaida earlier today to see if they had any vent bed availability she said yes. CM explained that we may have a referral for later today. CM called facility and faxed records. CM awaiting on approval decision. CM will continue to follow and assist with discharge planning / needs. DCP- Discharge Planning Updated by [email or web address]: Agnieszka Lee on 01/07/18 3:[address] Patient Name: TYLER CHANEY Admission Status: Urgent Accout number: [id number] Admission Date: 01-02-2018 : 1945 Admission Diagnosis:ACUTE RESPIRATORY FAILURE WITH HYPOXIA Attending: ALEJANDRO TORRES Current LOS: 5 Anticipated DC Date: Planned Disposition: Home Primary Insurance: [employer] MED[employer] ADV Discharge Planning Comments: CM met with daughter Suzy and son Lior. Patient is currently still on ventilator. Daughter states she knows he will not be able to stay alone any more. She states that he lives next door to many of his relatives. Currently unsure of disposition at this time. Patient is still in critical condition. CM will continue to follow and assist as needed with discharge planning / needs. Sexologist: Agnieszka Lee DCPIA - Discharge Planning Initial Assessment Updated by [id number]: Agnieszka Lee on 01/07/18 4:06 pm * Is the patient Alert and Oriented? No * How many steps to enter\exit or inside your home? * PCP Unknown * Preadmission Environment Home Alone * ADLs Independent * Equipment None * List name and contact numbers for known caregivers / representatives who currently or will assist patient after discharge: Lior Chaney [phone] * Verbal permission to speak to the caregivers and representatives has been obtained from the patient. N/A * Community resources currently utilized None * Additional services required to return to the preadmission environment? No * Can the patient safely return to the preadmission environment? Yes * Has this patient been hospitalized within the prior 30 days at any hospital? No Last DP export: 02/12/18 2:20 Patient Name: TYLER CHANEY Page 67334 at 1149 All edits/amendments must be made on the electronic document DICTATION DATE: 02/13/18 1149 PATHOLOGIST: JOEL 02/13/18 1149 RPT#: [id number] DC DATE:02/12/18 STATUS: DIS IN [facility] [address] [place] [address] END OF REPORT
--- NOTE | ~2018-01-02 | MORECARE ---
CASE MANAGEMENT DISCHARGE SUMMARY PATIENT: TYLER CHANEY UNIT: [id number] ADM DATE: 01/02/18 AGE: 72 : 45 SEX: M [facility] AUTHOR: KAREN BRADY PHYSICIAN: REFERRING PHYSICIAN: ALEJANDRO TORRES MD DATE OF SERVICE: 01/07/18 Discharge Plan Patient Name: TYLER CHANEY [facility] [facility] 1945 Planned Disposition: Home Anticipated Discharge Date: Discharge Date: Expected LOS: Initial Reviewer: [email or web address] Initial Review Date: 01/02/2018 Generated: 01/07/18 5:14 pm DCPIA - Discharge Planning Initial Assessment Updated by [email or web address]: Agnieszka Lee on 01/07/18 4:06 pm * Is the patient Alert and Oriented? No * How many steps to enter\exit or inside your home? * PCP Unknown * Preadmission Environment Home Alone * ADLs Independent * Equipment None * List name and contact numbers for known caregivers / representatives who currently or will assist patient after discharge: Lior Chaney [phone] * Verbal permission to speak to the caregivers and representatives has been obtained from the patient. N/A * Community resources currently utilized None * Additional services required to return to the preadmission environment? No * Can the patient safely return to the preadmission environment? Yes * Has this patient been hospitalized within the prior 30 days at any hospital? No Last DP export: 01/07/18 3:03 Patient Name: TYLER CHANEY Page 15230 at 1614 All edits/amendments must be made on the electronic document DICTATION DATE: 01/07/18 161 EXECUTIVE CREATIVE DIRECTOR: JOEL 01/07/18 1614 RPT#: [id number] DC DATE: STATUS: ADM IN [facility] [address] [place] [address] END OF REPORT
--- NOTE | ~2018-01-02 | MORECARE ---
CASE MANAGEMENT DISCHARGE SUMMARY PATIENT: TYLER CHANEY UNIT: [id number] ADM DATE: 01/02/18 AGE: 72 : 45 SEX: M [facility] AUTHOR: KAREN BRADY PHYSICIAN: REFERRING PHYSICIAN: ALEJANDRO TORRES MD DATE OF SERVICE: 01/07/18 Discharge Plan Patient Name: TYLER CHANEY [facility] [facility] 1945 Planned Disposition: Home Anticipated Discharge Date: Discharge Date: Expected LOS: Initial Reviewer: [email or web address] Initial Review Date: 01/02/2018 Generated: 01/07/18 5:03 pm Patient Name: TYLER CHANEY Page 75650 at 1603 All edits/amendments must be made on the electronic document DICTATION DATE: 01/07/181602 PREPARATION ROOM MANAGER: JOEL 01/07/18 160 RPT#: [id number] DC DATE: STATUS: ADM IN [facility] [address] [place] [address] END OF REPORT
--- NOTE | ~2018-01-02 | HEMODYNAMI ---
PATIENT:TYLER CHANEY MEDICAL RECORD: [id number] : 45 LOCATION:[place] [address] ADMISSION DATE: 01/02/18 Generatedon:01/07/20189:04 Patient name: TYLER CHANEY Patient #: [id number] SSN: : 1945 Date of study: 01/07/2018 Page: Of Hemodynamic Procedure Report Patient Data Patient Demographics First Name: TYLER Gender: Male Last Name: RITU : 1945 Patient #: [id number] Age: 72 year(s) Race: Black Additional ID: [id number] Contact details Address: [address] [place] [address] [place] State: [place] City: [place] Zip code: [address] Past Medical History Allergies: No known allergies Admission Admission Data Admission Date: 01/02/2018 Admission Time: 16:21 Room #: [facility] Height (in.): 70.87 BSA: 2.07 (m2) Height (cm.): 180 BMI: 26.85 (kg/m2) Weight (lbs.): 191.8 Weight (kg.): 87 Lab Results Lab Result Date: 01/07/2018 Lab Result Time: 0:00 Biochemistry Name Units Result Min Max BUN mg/dl 12 --(-*--)-- 7 18 Creatinine mg/dl 0.8 --(-*--)-- 0.6 1.3 CBC Name Units Result Min Max Hemoglobin g/dl 10.1 *-(----)-- 13.5 17.5 Procedure Procedure Types Cath Procedure Diagnostic Procedure C LHC w/Coronaries Procedure Description Procedure Date Procedure Date: 01/07/2018 Procedure Start Time: 8:50 Procedure End Time: 8:59 Procedure Staff Name Function Willie Kong RN Road Gang Supervisor Bronson Mario RN Road Gang Supervisor Grace La RN Nurse Marco Turcios RT Scrub Rebecca Prado RT Monitor Chirag Barney MD Performing Physician Procedure Data Cath Procedure Fluoroscopy Diagnostic fluoroscopy Total fluoroscopy Time: 1.2 time: 1.2 min min Diagnostic fluoroscopy Total fluoroscopy dose: 279 dose: 279 mGy mGy Contrast Material Contrast Material Type Amount (ml) Isovue 300 68 Entry Location Entry Primary Successful Side Size Upsize Upsize Entry Closure Succes sful Closure Location (Fr) 1 (Fr) 2 (Fr) Remarks Device Remarks Femoral Right 5 Fr Exoseal artery Estimated blood loss: 5 ml Diagnostic catheters Device Type Used For End Catheter Placement MULTIPACK JL 4.0 5Fr Procedure catheter MULTIPACK 3DRC 5Fr Procedure catheter MULTIPACK Pigtail 5 Fr Procedure catheter Procedure Complications No complications Procedure Medications Medication Administration Route Dosage 0.9% NaCl I.V. 150 ml/hr Oxygen 100 Lidocaine 2% added to field 20 Heparin Flush Bag added to field 2 bags (1000units/500ml NS) Lidocaine I.V. 2 mg (100mg/5ml) Dobutamine I.V. drip 5 mcg/kg/min (500mg/250ml D5W) Diprivan 1% I.V. 50 mg (Propofol) Hemodynamics Rest BSA: 2.07 (m2) HGB: 10.1 (g/dl) O2 Consumption: Estimated: 248.42 (ml/min) O2 Co nsumption indexed: Estimated:120.01 (ml/min/m) Heart Rate: 82 (bpm) Pressure Samples Time Site Value (mmHg) Purpose Heart Use Rate(bpm) 8:55 LV 140/7,16 Snapshot 77 8:55 AO 84/61(71) Pullback 73 8:55 LV 79/17,19 Pullback 73 Gradients Valve Time Site 1 Site 2 Mean SEP/DFP Peak To Heart Use (mmHg) (sec/min) Peak Rate (mmHg) (bpm) Aortic 8:55 LV AO 0 4 0 73 79/17,19 84/61(71) Calculations Valve P-P Mean Valve Index Valve Source Name Gradient Area Flow (cm2) Aortic 0 0 0 0 Snapshots Pre Cath Intra NCS Post Cath Vital Signs Time Heart Resp SPO2 etCO2 NIBP Rhythm Pain Sedation Rate (ipm) (%) (mmHg) (mmHg) Status Level (bpm) 8:39:32 81 13 100 0 101/62(87) NSR 0 (11) 5(A) , No pain 8:43:38 80 14 100 0 96/77(92) NSR 0 (11) 5(A) , No pain 8:47:43 79 13 100 0 86/71(79) NSR 0 (11) 5(A) , No pain 8:51:49 48 13 100 0 86/61(67) NSR 0 (11) 5(A) , No pain 8:55:51 76 13 100 0 103/71(83) NSR 0 (11) 5(A) , No pain 8:59:57 75 13 100 0 105/78(88) NSR 0 (11) 5(A) , No pain Medications Time Medication Route Dose Verified Delivered Reason Not es Effectiveness by by 8:14:07 0.9% NaCl I.V. 150 ml/hr Chirag Grace used for [facility] procedure MD [facility] 8:14:30 Oxygen ventilator 100% FiO2 Chirag Grace for low 02 [facility] sats MD [facility] 8:14:42 Lidocaine 2% added to 20ml vial Chirag Grace for local field [facility] anesthetic MD [facility] 8:14:48 Heparin Flush added to 2 bags Chirag Grace used for Bag field [facility] procedure (1000units/500ml MD [facility] NS) 8:35:42 Lidocaine I.V. 2 mg Chirag Grace Per inf using (100mg/5ml) [facility] physician upon MD [facility] arrival to botany laboratory assistant 8:37:09 Dobutamine I.V. drip 5 Chirag Grace Per inf using (500mg/250ml mcg/kg/min [facility] physician upon D5W) MD [facility] arrival to botany laboratory assistant 8:38:05 Diprivan 1% I.V. 50 mg Chirag Muñozyla for inf using (Propofol) [facility] sedation upon MD [facility] arrival to botany laboratory assistant Procedure Log Time Note 8:10:12 Willie Kong RN sent for patient. Start room use. 8:10:13 Time tracking: Regular hours (M-F 7:00 - 5:00) 8:10:16 Plan of Care:Hemodynamics will remain stable., Cardiac rhythm will remain stable., Comfort level will be maintained., Respiratory function will remain adequate., Patient/ family verbilizes understanding of procedure., Procedure tolerated without complication., Recovers from procedure without complications.. 8:10:31 H&P Date Dictated: 01/02/2018 Within 30 days and on chart., H&P Addendum completed by physician on day of procedure. (MUST COMPLETE FOR ALL OUTPATIENTS). 8:10:53 Patient allergic to No known allergies 8:11:03 Patient Weight : 191.8 lbs 8:11:15 Patient Height : 70.87 inches 8:14:07 0.9% NaCl 150 ml/hr I.V. was administered by Grace La RN; used for procedure; 8:14:30 Oxygen 100% FiO2 ventilator was administered by Grace La RN; for low 02 sats; 8:14:42 Lidocaine 2% 20ml vial added to field was administered by Grace La RN; for local anesthetic; 8:14:48 Heparin Flush Bag (1000units/500ml NS) 2 bags added to field was administered by Grace La RN; used for procedure; 8:30:24 Patient received from CVICU to CCL 1 Alert and oriented. Tansferred to table in Supine position. 8:30:25 Warm blankets applied, and annemarie hugger turned on for patient comfort. 8:30:25 Correct patient and procedure confirmed by team. 8:30:27 ECG and BP/O2 sat monitors applied to patient. 8:35:42 Lidocaine (100mg/5ml) 2 mg I.V. was administered by Grace La RN; Per physician; infusing upon arrival to botany laboratory assistant 8:37:09 Dobutamine (500mg/250ml D5W) 5 mcg/kg/min I.V. drip was administered by Grace La RN; Per physician; infusing upon arrival to botany laboratory assistant 8:38:05 Diprivan 1% (Propofol) 50 mg I.V. was administered by Grace La RN; for sedation; infusing upon arrival to botany laboratory assistant 8:38:23 Vital chart was started 8:42:59 SIGNED PROCEDURE CONSENT FORM OBTAINED FROM SON 8:43:02 Baseline sample Acquired. 8:43:09 Rhythm: sinus rhythm 8:43:10 Full Disclosure recording started 8:43:11 Pre-op teaching completed and patient verbalized understanding. 8:43:13 Pre-procedure instructions explained to patient. 8:43:16 Family in waiting room. 8:43:17 Patient NPO since Midnight. 8:43:47 Pt arrived from CVICU sedated with continuous propfol drip, no moderate sedation given for this procedure. 8:43:51 Is patient on blood thinner?Unknown 8:43:53 Patient diabetic? Unknown. 8:43:56 Previous problem with sedation/anesthesia? Unknown ? 8:43:58 Snore? Unknown 8:43:59 Sleep apnea? Unknown 8:44:00 Deviated septum? Unknown 8:44:01 Opens mouth fully? Unknown 8:44:03 Sticks out tongue? Unknown 8:44:06 Airway obstruction? Unknown ? 8:44:08 Dentures? Unknown ? 8:44:28 PT ARRIVED INTUBATED FROM CVICU, ANSWERS UNKNOWN 8:44:56 Pre procedure: right dorsailis pedis pulse 1+ Palpable, but thready & weak; easily obliterated 8:44:59 Patient pain scale 0/10 ?. 8:45:21 IV patent on arrival in right IJ with 0.9% NaCl at KVO. 8:45:49 Lab Result : BUN 12 mg/dl 8:45:49 Lab Result : Hemoglobin 10.1 g/dl 8:45:49 Lab Result : Creatinine 0.8 mg/dl 8:45:52 Lab results completed and on chart. 8:45:55 Right groin area was prepped with chlora-prep and draped in sterile fashion 8:45:56 Alarms reviewed by R. N. 8:45:56 Sharps counted by scrub and verified by R.N. 8:45:57 Physician arrived 8:45:59 --------ALL STOP TIME OUT------ 8:45:59 Final Timeout: patient, procedure, and site verified with staff and physician. All members of the team are in agreement. 8:46:01 Right groin site verified by team. 8:46:06 Physical assessment completed. ASA score P 4 - A patient with severe systemic disease that is a constant threat to life as per Chirag Barney MD. 8:46:09 Sedation plan: TIVA Medication:Propofol 8:46:24 Use device set Femoral Dx 8:46:25 ACIST Syringe (94910) opened to sterile field. 8:46:26 Bag Decanter () opened to sterile field. 8:46:27 ACIST Hand Control (60771) opened to sterile field. 8:46:27 ACIST Manifold (46709) opened to sterile field. 8:46:28 Tegaderm 4 x 4 (1626W) opened to sterile field. 8:46:31 Medline Cath Pack ([id number]) opened to sterile field. 8:46:31 DIAGNOSTIC WIRE .035 260cm J wire (427218) opened to sterile field. 8:46:33 DIAGNOSTIC Multipack 5Fr catheter set (MC0105) opened to sterile field. 8:46:39 SHEATH 5FR [place] (CNG562) opened to sterile field. 8:50:10 Procedure started. 8:50:20 Local anesthetic to right femoral artery with Lidocaine 2% by Chirag Barney MD.INITIAL ACCESS ONLY 8:51:13 A 5 Fr sheath was inserted into the Right Femoral artery 8:51:22 A MULTIPACK JL 4.0 5Fr catheter was advanced over the wire and used for Procedure. 8:52:41 LCA angiography performed. 8:53:19 Catheter removed. 8:53:23 A MULTIPACK 3DRC 5Fr catheter was advanced over the wire and used for Procedure. 8:53:54 RCA angiography performed. 8:53:55 Catheter removed. 8:54:16 A MULTIPACK Pigtail 5 Fr catheter was advanced over the wire and used for Procedure. 8:55:00 LV gram done using COBURN 8:55:03 Injector settings: Ml/sec: 10, Volume: 20, 8:55:31 LV hemodynamics recorded. 8:55:59 EF : 10 % 8:56:22 Catheter removed. 8:56:47 EXOSEAL 5Fr (EX500) opened to sterile field. 8:57:15 Sheath removed intact; hemostasis achieved with Exoseal to the Right Femoral artery. 8:57:27 Procedure ended.(Physican Out) 8:57:57 Fluoroscopy time 01.20 minutes. 8:58:03 Fluoroscopy dose: 279 mGy 8:58:03 Flurop Dose total: 279 8:58:07 Contrast amount:Isovue 300 68ml. 8:58:08 Sharps counted by scrub and verified by R.N. 8:58:11 Post-op/insertion site Right Femoral artery dressed using a 4 x 4 and Tegaderm. 8:58:24 Post-procedure physical assessment completed. ASA score P 2 - A patient with mild systemic disease as per Chirag Barney MD. 8:58:28 Post procedure rhythm: unchanged. 8:58:30 Estimated blood loss: 5 ml 8:58:31 Post procedure instruction explained to patient.Patient verbalizes understanding. 8:58:32 Patient needs reinforcement of post procedure teaching. 8:59:09 Procedure and supply charges have been captured, reviewed, submitted and are correct. 8:59:11 Procedure Complication : No complications 8:59:13 Vital chart was stopped 8:59:13 See physician's report for complete and final results. 8:59:16 Report given to CVICU. 8:59:21 Patient transfered to CVICU with Bed. 8:59:25 Procedure ended. 8:59:25 Full Disclosure recording stopped 8:59:28 End room use (Document Last) Device Usage Item Name Manufacture Quantity Catalog Hospital Part Current Minimal L ot# / Number Charge Number Stock Stock Serial# Code ACIST Acist 1 47973 007237 710985 680810 20 Syringe Medical (13336) Systems Inc Bag Microtek 1 2001S 605902 39561 594495 5 Decanter Medical Inc. () ACIST Hand Acist 1 46887 870392 570601 158168 5 Control Medical (21756) Systems Inc ACIST Acist 1 31610 686247 056483 911887 5 Manifold Medical (19588) Systems Inc Tegaderm 4 3M 1 1626W 408191 403710 287402 5 x 4 (1626W) Medline Medline 1 [id number] 299917 94163 392429 5 Cath Pack ([id number]) DIAGNOSTIC St Alan 1 830417 140805 972806 605444 30 WIRE .035 260cm J wire (281495) DIAGNOSTIC Cardinal 1 PW4996 716024 77730 036100 30 Multipack Health 5Fr catheter set (JK8110) SHEATH 5FR Terumo 1 VCB858 797497 375504 103571 40 [place] (JTS492) MULTIPACK Cardinal 1 259705 5 JL 4.0 5Fr Health catheter MULTIPACK Cardinal 1 566546 5 3DRC 5Fr Health catheter MULTIPACK Cardinal 1 734629 5 Pigtail 5 Health Fr catheter EXOSEAL 5Fr Cardinal 1 EX500 5144127 758071 228463 10 (EX500) Health Signature Audit [place] Stage Time Signature Unsigned Intra-Procedure 01/07/2018 Rebecca Prado 9:04:31 AM RT(R) Signatures Monitor : Rebecca Prado Signature : RT Date : Time : [place] [id number] [facility] [place] [address]
--- NOTE | ~2018-01-02 | MORECARE ---
CASE MANAGEMENT DISCHARGE SUMMARY PATIENT: TYLER CHANEY UNIT: [id number] ADM DATE: 01/02/18 AGE: 72 : 45 SEX: M ROOM/BED: D.2316 AUTHOR: JOSE ANTONIODOC PHYSICIAN: REFERRING PHYSICIAN: ALEJANDRO TORRES MD DATE OF SERVICE: 01/30/18 Discharge Plan Patient Name: TYLER CHANEY Facility: [facility]:[place] : 1945 Planned Disposition: Home Anticipated Discharge Date: Discharge Date: Expected LOS: Initial Reviewer: [email or web address] Initial Review Date: 01/02/2018 Generated: 01/30/18 6:26 pm Comments DCP- Discharge Planning Updated by [email or web address]: Agnieszka Lee on 01/30/18 4:[address] CM called and spoke with Nikia to check to see if she had received auth for placement for LTACH. Nikia stated she hasn't heard from [facility] yet. She stated she would try to call them back today. Nikia stated that she would notify CM as soon as she hears something. CM will continue to follow and assist with discharge planning / needs. DCP- Discharge Planning Updated by [email or web address]: Agnieszka Lee on 01/29/18 2:[address] CM called and spoke with Nikia [phone] regarding placement. Nikia stated that she had spoke with [facility] and they informed her that it could be up to 14days before they replied to auth request. Nikia stated that she plans on calling them everyday to check on status. CM will continue to follow and assist with discharge planning / needs. DCP- Discharge Planning Updated by [email or web address]: Agnieszka Lee on 01/28/18 5:[address] CM called and spoke with Nikia at [facility] in [place] this am. Nikia stated that she was awaiting approval from [facility]. She stated that once she got approval that the patient should meet criteria and could be transferred. Nikia called back 10 mins later stated that [facility] was requesting more information. CM sent updated clinicals. CM will continue to follow and assist as needed with discharge planning / needs. DCP- Discharge Planning Updated by [email or web address]: Agnieszka Lee on 01/25/18 10:[address] CM spoke with Nikia at [facility] in [place] this am. She did receive ss# CM faxed updated records. Nikia stated that she was sending paperwork to [facility] and hopefully we could transfer on Sunday. CM will continue to follow and assist with discharge planning/needs DCP- Discharge Planning Updated by [email or web address]: Agnieszka Lee on 01/24/18 7:[address] CM RECIEVED CALL THIS AM FROM NIKIA ([facility]) THAT SHE HAD RECIEVED PATIENTS RECORDS AND REFERAL BUT IT WAS LACKING SOCIAL SECURITY NUMBER. CM ATTEMPTED TO GET IN TOUCH WITH SON TO SEE IF HE HAD PATIENT SS#. CM RECIEVED SS# LATER TODAY AND A MESSAGE WAS LEFT WITH NIKIA AT [facility]. CM WILL CHECK BACK IN THE AM DCP- Discharge Planning Updated by [email or web address]: Agnieszka Lee on 01/23/18 4:[address] CM spoke with patients ojanne Davis regarding LTACH placement. [facility] LTACH facilities and decided upon [facility] in [place]. CM called and spoke with Nikia earlier today to see if they had any vent bed availability she said yes. CM explained that we may have a referral for later today. CM called facility and faxed records. CM awaiting on approval decision. CM will continue to follow and assist with discharge planning / needs. DCP- Discharge Planning Updated by [email or web address]: Agnieszka Lee on 01/07/18 3:[address] Patient Name: TYLER CHANEY Admission Status: Urgent Accout number: [id number] Admission Date: 01-02-2018 : 1945 Admission Diagnosis:ACUTE RESPIRATORY FAILURE WITH HYPOXIA Attending: ALEJANDRO TORRES Current LOS: 5 Anticipated DC Date: Planned Disposition: Home Primary Insurance: [facility] MEDICARE ADV Discharge Planning Comments: CM met with daughter Suzy and son Lior. Patient is currently still on ventilator. Daughter states she knows he will not be able to stay alone any more. She states that he lives next door to many of his relatives. Currently unsure of disposition at this time. Patient is still in critical condition. CM will continue to follow and assist as needed with discharge planning / needs. Parts Casting Machine Operator: Agnieszka Lee DCPIA - Discharge Planning Initial Assessment Updated by [email or web address]: Agnieszka Lee on 01/07/18 4:06 pm * Is the patient Alert and Oriented? No * How many steps to enter\exit or inside your home? * PCP Unknown * Preadmission Environment Home Alone * ADLs Independent * Equipment None * List name and contact numbers for known caregivers / representatives who currently or will assist patient after discharge: Lior Chaney [phone] * Verbal permission to speak to the caregivers and representatives has been obtained from the patient. N/A * Community resources currently utilized None * Additional services required to return to the preadmission environment? No * Can the patient safely return to the preadmission environment? Yes * Has this patient been hospitalized within the prior 30 days at any hospital? No Last DP export: 01/29/18 2:59 p Patient Name: TYLER CHANEY Page 16422 at 1726 All edits/amendments must be made on the electronic document DICTATION DATE: 01/30/181725 SEED POTATO ARRANGER: JOEL 01/30/181725 RPT#: [id number] DC DATE: STATUS: ADM IN [facility] [address] [place] [address] END OF REPORT
--- NOTE | ~2018-01-02 | EC ---
PATIENT:TYLER CHANEY DATE OF SERVICE: 01/02/18 SEX: M MEDICAL RECORD: [id number] DATE OF : 45 LOCATION:[place] [address] AGE OF PATIENT: 72 ADMISSION DATE: 01/02/18 REFERRING PHYSICIAN: INTERPRETING PHYSICIAN: VINCENT LUJAN MD ECHOCARDIOGRAM REPORT ECHO CHARGES 5 ECHO LIMITED Date: 01/03/18 CLINICAL DIAGNOSIS: ASSESS EF/ CAD/MULTIPLE CODES ECHOCARDIOGRAPHIC MEASUREMENTS (adult normal given) AC root (d.<3.7cm) 3.1 cm LV Septum d (<1.2 cm> 1.1 cm Valve Excursion 1.3 cm LV Septum (systole) 1.2 cm Left Atria (s.<4.0cm> 4.4 cm LVPW d(<1.2cm) 1.2 cm RV (d.<2.3cm) 4.0 cm LVPW (sytole) 1.5 cm LV diastole(<5.6CM) 5.1 cm MV E-F(>70mm/sec) cm LV systole 4.2 cm LVOT Diameter 2.0 cm MV exc.(>10mm) 1.7 cm Est.ejection fraction (50-75%) % DOPPLER: LVIT cm/sec A cm/sec E cm/sec LA cm/sec RVSP 59 mmHg LVOT cm/sec AOP1/2T m/s Asc. Ao cm/sec RVOT 38 cm/sec RA cm/sec PA 83 cm/sec AV Gradient Peak mmHg AV Mean mmHg AV Area cm MV Gradient Peak mmHg MV Mean mmHg MV Area cm COMMENTS: Bay Stocker: An [employer] Sales Representative: 2 Dr. Ewing TAPE# PACS Pericardial Effusion N DATE OF SERVICE: 01/03/2018 PROCEDURE: Echocardiogram. FINDINGS: 1. Left ventricular chamber size is mildly dilated. Left ventricular systolic function is markedly reduced, overall ejection fraction 15% to 20%. 2. Left atrium is enlarged at 4.4 cm. Right atrium and right ventricular chamber sizes as well mildly dilated. 3. Valvular structures have normal structure and motion. ECHOCARDIOGRAM REPORT [id number] TYLER CHANEY 4. Doppler interrogation reveals mild mitral regurgitation, mild tricuspid regurgitation, no other valvular insufficiency or stenosis. Pulmonary systolic pressure is elevated estimated 60 mmHg. 5. No evidence of pericardial effusion or left ventricular thrombus. TRANSINT:[id number] Voice Confirmation ID: [id number] DOCUMENT ID: [id number] VINCENT LUJAN MD at 1059 CC: [id number] DICTATION DATE: 01/03/18 1249 SCRAP HOOKER: 01/03/[address] [facility] [address] [place] [address]
--- NOTE | ~2018-01-02 | OP ---
PATIENT NAME: TYLER CHANEY MEDICAL RECORD: [id number] :[birth year] LOCATION:[place]07 ADMISSION DATE:01/02/18 SURGEON: BEBETO MORA MD DATE OF OPERATION: 01/08/2018 PREOPERATIVE DIAGNOSES: 1. Right heart failure. 2. Hypertension. 3. Chronic obstructive pulmonary disease. 4. Acute respiratory failure on the ventilator. POSTOPERATIVE DIAGNOSES: 1. Right heart failure. 2. Hypertension. 3. Chronic obstructive pulmonary disease. 4. Acute respiratory failure on the ventilator. PROCEDURE: Left subclavian vein dual lead ICD placement. SURGEON: Bebeto Mora MD CO-SURGEON: Chirag Mcdonald MD REPORT OF OPERATION: The patient's left chest was prepped and draped in sterile fashion. A 10 mL of 1% lidocaine with epinephrine was infused into the surrounding tissues. A transverse incision was made in the left superior lateral chest and a subcutaneous pouch was made over the pectoral fascia. We accessed the left subclavian vein times 2 and guidewires were advanced with ease. Fluoro was used to note that the wires were in good position in the venous system. The dilator trocar devices were placed over the wires and the wires and dilators were removed. We advanced the 2 leads through the trocars and at this point, Dr. Mcdonald, positioned the leads appropriately in the atrium and ventricle. Once these were noted to be functioning appropriately, then they were affixed to the new ICD. This was placed into the subcutaneous pouch. The leads and the pacemaker were all sutured down to the pectoral fascia using interrupted 0 Ti-Cron. The wound was irrigated out with normal saline and care was taken to assure there was no sign of any bleeding. The subcutaneous tissues were reapproximated with interrupted 3-0 Vicryl and the skin was closed with running subcutaneous 5-0 Monocryl. COMPLICATIONS: None. CONDITION: Stable. ANESTHESIA: General endotracheal and local. BLOOD LOSS: Minimal. TRANSINT:[id number] Voice Confirmation ID: [id number] DOCUMENT ID: [id number] OPERATIVE REPORT [id number] TYLER CHANEY BEBETO MORA MD at 1219 CC: [id number] DICTATION DATE: 01/08/18 1457 INTERNET CAFE MANAGER: 01/08/18 1558 ADM IN [facility] [address] [facility] [place] [address]
--- NOTE | ~2018-01-02 | MORECARE ---
CASE MANAGEMENT DISCHARGE SUMMARY PATIENT: TYLER CHANEY UNIT: [id number] ADM DATE: 01/02/18 AGE: 72 : 45 SEX: M ROOM/BED: D.2316 AUTHOR: JOSE ANTONIODOC PHYSICIAN: REFERRING PHYSICIAN: ALEJANDRO TORRES MD DATE OF SERVICE: 02/04/18 Discharge Plan Patient Name: TYLER CHANEY Facility: [facility]:[place] : 1945 Planned Disposition: Home Anticipated Discharge Date: Discharge Date: Expected LOS: Initial Reviewer: [email or web address] Initial Review Date: 01/02/2018 Generated: 02/04/18 5:25 pm Comments DCP- Discharge Planning Updated by [email or web address]: Agnieszka Lee on 02/04/18 3:[address] CM called and spoke with Nikia @ [facility]. She stated that she would call [facility] again today to see if they had made a determination. Nikia stated that last week that [facility] had stated that they thought the records sent for auth to admit was clinicals sent from this facility for continued stay review. 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 CM relayed message to family. CM continues to follow and assist with discharge planning / needs. DCP- Discharge Planning Updated by [email or web address]: Agnieszka Lee on 02/01/18 11:[address] CM called and left message with [facility] intake to find out about auth from [facility].CM will continue to follow and assist as needed with discharge planning / needs. DCP- Discharge Planning Updated by [email or web address]: Margaret Sibley on 01/31/18 1:[address] Patient Name: TYLER CHANEY Admission Status: Urgent Accout number: [id number] Admission Date: 01-02-2018 : 1945 Admission Diagnosis:ACUTE RESPIRATORY FAILURE WITH HYPOXIA Attending: ALEJANDRO TORRES Current LOS: 29 Anticipated DC Date: Planned Disposition: Home Primary Insurance: [facility] MEDICARE ADV Discharge Planning Comments: CM SPOKE WITH SABRINA AT [facility], SHE STATED SHE SPOKE WITH TAMRA AT [facility] AND THEY ARE WAITING TO GET AUTH. SABRINA STATES SHE WILL CONTACT US SOON SHE HEARS BACK FROM [facility]. CM WILL FOLLOW AND ASSIST NEEDED. Shirrer: Margaret Sibley DCP- Discharge Planning Updated by [id number]: Margaret Maryjo on 01/31/18 12:[address] Patient Name: TYLER CHANEY Admission Status: Urgent Accout number: [id number] Admission Date: 01-02-2018 : 1945 Admission Diagnosis:ACUTE RESPIRATORY FAILURE WITH HYPOXIA Attending: ALEJANDRO TORRES Current LOS: 29 Anticipated DC Date: Planned Disposition: Home Primary Insurance: [facility] MEDICARE ADV Discharge Planning Comments: CM CALLED NIKIA WITH [facility] AT [phone], NO ANSWER, LEFT VOICE MAIL. CM WAITING FOR RETURN CALL. CM ATTEMPTED TO CALL NIKIA TWICE. Shirrer: Margaret Sibley DCP- Discharge Planning Updated by [id number]: Agnieszka Lee on 01/30/18 4:[address] CM called and spoke with Nikia to check to see if she had received auth for placement for LTACH. Nikia stated she hasn't heard from [facility] yet. She stated she would try to call them back today. Nikia stated that she would notify CM as soon as she hears something. CM will continue to follow and assist with discharge planning / needs. DCP- Discharge Planning Updated by [id number]: Agnieszka Lee on 01/29/18 2:[address] CM called and spoke with Nikia [phone] regarding placement. Nikia stated that she had spoke with [facility] and they informed her that it could be up to 14days before they replied to auth request. Nikia stated that she plans on calling them everyday to check on status. CM will continue to follow and assist with discharge planning / needs. DCP- Discharge Planning Updated by [email or web address]: Agnieszka Lee on 01/28/18 5:[address] CM called and spoke with Nikia at [facility] [place] this am. Nikia stated that she was awaiting approval from [facility]. She stated that once she got approval that the patient should meet criteria and could be transferred. Nikia called back 10 mins later stated that [facility] was requesting more information. CM sent updated clinicals. CM will continue to follow and assist as needed with discharge planning / needs. DCP- Discharge Planning Updated by [email or web address]: Agnieszka Lee on 01/25/18 10:[address] CM spoke with Nikia at [facility] [place] this am. She did receive ss# CM faxed updated records. Nikia stated that she was sending paperwork to [facility] and hopefully we could transfer on Sunday. CM will continue to follow and assist with discharge planning/needs DCP- Discharge Planning Updated by [email or web address]: Agnieszka Lee on 01/24/18 7:[address] CM RECIEVED CALL THIS AM FROM NIKIA ([facility]) THAT SHE HAD RECIEVED PATIENTS RECORDS AND REFERAL BUT IT WAS LACKING SOCIAL SECURITY NUMBER. CM ATTEMPTED TO GET IN TOUCH WITH SON TO SEE IF HE HAD PATIENT SS#. CM RECIEVED SS# LATER TODAY AND A MESSAGE WAS LEFT WITH NIKIA AT [facility]. CM WILL CHECK BACK IN THE AM DCP- Discharge Planning Updated by [email or web address]: Agnieszka Lee on 01/23/18 4:[address] CM spoke with patients joanne Davis regarding LTACH placement. [facility] facilities and decided upon [facility] in [place]. CM called and spoke with Nikia earlier today to see if they had any vent bed availability she said yes. CM explained that we may have a referral for later today. CM called facility and faxed records. CM awaiting on approval decision. CM will continue to follow and assist with discharge planning / needs. DCP- Discharge Planning Updated by [email or web address]: Agnieszka Lee on 01/07/18 3:[address] Patient Name: TYLER CHANEY Admission Status: Urgent Accout number: [id number] Admission Date: 01-02-2018 : 1945 Admission Diagnosis:ACUTE RESPIRATORY FAILURE WITH HYPOXIA Attending: ALEJANDRO TORRES Current LOS: 5 Anticipated DC Date: Planned Disposition: Home Primary Insurance: [facility] MEDICARE ADV Discharge Planning Comments: CM met with daughter Suzy and son Lior. Patient is currently still on ventilator. Daughter states she knows he will not be able to stay alone any more. She states that he lives next door to many of his relatives. Currently unsure of disposition at this time. Patient is still in critical condition. CM will continue to follow and assist as needed with discharge planning / needs. Shirrer: Agnieszka Lee DCPIA - Discharge Planning Initial Assessment Updated by [email or web address]: Agnieszka Lee on 01/07/18 4:06 pm * Is the patient Alert and Oriented? No * How many steps to enter\exit or inside your home? * PCP Unknown * Preadmission Environment Home Alone * ADLs Independent * Equipment None * List name and contact numbers for known caregivers / representatives who currently or will assist patient after discharge: Lior Chaney [phone] * Verbal permission to speak to the caregivers and representatives has been obtained from the patient. N/A * Community resources currently utilized None * Additional services required to return to the preadmission environment? No * Can the patient safely return to the preadmission environment? Yes * Has this patient been hospitalized within the prior 30 days at any hospital? 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
--- NOTE | ~2018-01-02 | OP ---
PATIENT NAME: TYLER CHANEY MEDICAL RECORD: [id number] :[birth year] LOCATION:[facility] ADMISSION DATE:01/02/18 SURGEON: TORREY ACEVES MD DATE OF OPERATION: 01/07/2018 PROCEDURE: Left heart catheterization, selective coronary angiography, right femoral artery approach. CATHETERS: A 5-Hungarian sheath, 5/4 left and right Curry, 5/4 pig. The procedure was well tolerated. The patient returned to the connell, sheath removed. ExoSeal device placed. FINDINGS: Left ventriculography in 30-degree COBURN view, global LV hypokinesis. Overall, function reduced 10% to 15%. CORONARY ANATOMY: LEFT MAIN: Left main is free of disease. LAD: Free of disease in the diagonal system. CIRCUMFLEX: Free of disease in the marginal system. RIGHT CORONARY ARTERY: Dominant artery, gives rise to PDA, free of disease. IMPRESSION: Nonischemic cardiomyopathy. Given lucas-induced torsades as well as V-tach and QRS duration with known left bundle and short QRS duration and not a candidate for 3 lead ICD; however, does need a 2-lead ICD for primary prevention as per ACC guidelines. TRANSINT:[id number] Voice Confirmation ID: [id number] DOCUMENT ID: [id number] TORREY ACEVES MD at 1150 CC: [id number] DICTATION DATE: 01/07/18 09 AEROPLANE PILOT: 01/07/18 0953 ADM IN [facility] [address] [place] [id number]
[2018-01-02 17:57] LABS: BASOPHILS 0 % (0-2); EOSINOPHILS 0 % (0-7); HEMATOCRIT 44.1 % (42.0-54.0); HEMOGLOBIN 14.9 g/dL (13.5-17.5); IMMATURE GRANULOCYTES 0.2 % (0-5); LYMPHOCYTES 8.2 % (15-50); MCH 32.5 pg (26.0-34.0); MCHC 33.8 g/dL (31.0-37.0); MCV 96.3 fL (80.0-100.0); MEAN PLATELET VOLUME 10.6 fL (7.4-10.4); MONOCYTES 3.7 % (2-11); NEUTROPHILS 87.9 % (40-80); PLATELET COUNT 153 10x3/uL (130-400); RBC 4.58 10x6/uL (4.20-6.10); RDW 14.3 % (11.5-14.5); WBC 11.9 10x3/uL (4.8-10.8)
[2018-01-02 18:23] LABS: ALBUMIN 2.3 g/dL (3.4-5.0); ANION GAP 9.2 mmol/L (8-16); BILIRUBIN - TOTAL 0.92 mg/dL (0.2-1.3); CALCIUM 7.6 mg/dL (8.5-10.1); CARBON DIOXIDE 33.6 mmol/L (21.0-32.0); CREATININE - SERUM 1.3 mg/dL (0.6-1.3); POTASSIUM - SERUM 3.8 mmol/L (3.5-5.1)
[2018-01-02 20:53] LABS: CKMB 1.4 U/L (0.0-3.6); CREATINE KINASE 196 UL (21-232)
[2018-01-02 20:55] LABS: TROPONIN-I 0.083 ng/mL (0.000-0.060)
[2018-01-02 23:15] LABS: CREATININE - URINE 98.6 mg/dL (30-125); PROTEIN - URINE 22.6 mg/dL (0.0-11.9)
[2018-01-03] VITALS (95 sets, daily range): BP systolic 66–186; BP diastolic 55–110; BMI 26.9
[2018-01-03 02:14] LABS: CKMB 1.6 U/L (0.0-3.6); CREATINE KINASE 206 UL (21-232); POTASSIUM - SERUM 4.5 mmol/L (3.5-5.1)
[2018-01-03 06:36] LABS: BASOPHILS 0 % (0-2); EOSINOPHILS 0 % (0-7); HEMATOCRIT 42.2 % (42.0-54.0); HEMOGLOBIN 14.3 g/dL (13.5-17.5); IMMATURE GRANULOCYTES 0.2 % (0-5); LYMPHOCYTES 5.2 % (15-50); MCH 32.6 pg (26.0-34.0); MCHC 33.9 g/dL (31.0-37.0); MCV 96.1 fL (80.0-100.0); MEAN PLATELET VOLUME 10.9 fL (7.4-10.4); MONOCYTES 10.9 % (2-11); NEUTROPHILS 83.7 % (40-80); PLATELET COUNT 144 10x3/uL (130-400); RBC 4.39 10x6/uL (4.20-6.10); RDW 14.4 % (11.5-14.5); WBC 14.4 10x3/uL (4.8-10.8)
[2018-01-03 07:09] LABS: INR 1.31 (0.85-1.17); PROTIME 15.8 SECONDS (11.6-15.0)
[2018-01-03 07:10] LABS: ALBUMIN 2.6 g/dL (3.4-5.0); ALKALINE PHOSPHATASE 87 U/L (46-116); ALT (SGPT) 229 U/L (10-68); CALC OSMOLALITY 310 mosm/kg (275-300); CALCIUM 7.9 mg/dL (8.5-10.1); CARBON DIOXIDE 27.7 mmol/L (21.0-32.0); CHLORIDE - SERUM 110 mmol/L (98-107); CREATINE KINASE 198 UL (21-232); CREATININE - SERUM 1.2 mg/dL (0.6-1.3); GLUCOSE 262 mg/dL (74-106); POTASSIUM - SERUM 4.6 mmol/L (3.5-5.1); PROTEIN - SERUM 5.4 g/dL (6.4-8.2); SODIUM 148 mmol/L (136-145); TROPONIN-I 0.369 ng/mL (0.000-0.060); UREA NITROGEN 36 mg/dL (7-18); eGFR NON AFRICAN AMERICAN 63 mL/min (90-120)
[2018-01-03 07:30] LABS: CKMB 2.5 U/L (0.0-3.6)
[2018-01-04] VITALS (95 sets, daily range): BP systolic 73–126; BP diastolic 50–89
[2018-01-04 05:32] LABS: BASOPHILS 0 % (0-2); EOSINOPHILS 0.1 % (0-7); HEMATOCRIT 41.6 % (42.0-54.0); HEMOGLOBIN 14.1 g/dL (13.5-17.5); IMMATURE GRANULOCYTES 0.3 % (0-5); LYMPHOCYTES 7.8 % (15-50); MCH 32.3 pg (26.0-34.0); MCHC 33.9 g/dL (31.0-37.0); MCV 95.4 fL (80.0-100.0); MONOCYTES 9.7 % (2-11); NEUTROPHILS 82.1 % (40-80); PLATELET COUNT 117 10x3/uL (130-400); RBC 4.36 10x6/uL (4.20-6.10); RDW 14.1 % (11.5-14.5); WBC 11.7 10x3/uL (4.8-10.8)
[2018-01-04 05:52] LABS: INR 1.17 (0.85-1.17); PROTIME 14.5 SECONDS (11.6-15.0)
[2018-01-04 05:53] LABS: ALBUMIN 2.7 g/dL (3.4-5.0); ALKALINE PHOSPHATASE 78 U/L (46-116); ALT (SGPT) 189 U/L (10-68); BILIRUBIN - TOTAL 1.56 mg/dL (0.2-1.3); CALCIUM 7.8 mg/dL (8.5-10.1); CARBON DIOXIDE 30.5 mmol/L (21.0-32.0); CHLORIDE - SERUM 107 mmol/L (98-107); PROTEIN - SERUM 5.6 g/dL (6.4-8.2); SODIUM 144 mmol/L (136-145)
[2018-01-04 05:55] LABS: CALC OSMOLALITY 295 mosm/kg (275-300); CREATININE - SERUM 0.8 mg/dL (0.6-1.3); GLUCOSE 193 mg/dL (74-106); POTASSIUM - SERUM 3.8 mmol/L (3.5-5.1); UREA NITROGEN 25 mg/dL (7-18); eGFR NON AFRICAN AMERICAN > 90 mL/min (90-120)
[2018-01-05] VITALS (80 sets, daily range): BP systolic 30–226; BP diastolic 23–129
[2018-01-05 05:13] LABS: BASOPHILS 0.1 % (0-2); HEMATOCRIT 43.2 % (42.0-54.0); HEMOGLOBIN 14.5 g/dL (13.5-17.5); IMMATURE GRANULOCYTES 0.5 % (0-5); LYMPHOCYTES 22.9 % (15-50); MCH 32.6 pg (26.0-34.0); MCHC 33.6 g/dL (31.0-37.0); MCV 97.1 fL (80.0-100.0); MEAN PLATELET VOLUME 11.2 fL (7.4-10.4); NEUTROPHILS 66.5 % (40-80); PLATELET COUNT 101 10x3/uL (130-400); RBC 4.45 10x6/uL (4.20-6.10); RDW 14.5 % (11.5-14.5)
[2018-01-05 05:18] LABS: INR 1.18 (0.85-1.17); PROTIME 14.6 SECONDS (11.6-15.0)
[2018-01-05 05:29] LABS: ALBUMIN 2.7 g/dL (3.4-5.0); BILIRUBIN - TOTAL 1.5 mg/dL (0.2-1.3); CARBON DIOXIDE 30.6 mmol/L (21.0-32.0); CREATININE - SERUM 1.1 mg/dL (0.6-1.3); MAGNESIUM - SERUM 1.9 mg/dL (1.8-2.4); PHOSPHOROUS 2.7 mg/dL (2.5-4.9); POTASSIUM - SERUM 3.6 mmol/L (3.5-5.1); PROTEIN - SERUM 5.6 g/dL (6.4-8.2)
[2018-01-06] VITALS (40 sets, daily range): BP systolic 99–128; BP diastolic 51–75
[2018-01-06 04:52] LABS: BASOPHILS 0 % (0-2); EOSINOPHILS 1.9 % (0-7); HEMATOCRIT 30.9 % (42.0-54.0); HEMOGLOBIN 10.2 g/dL (13.5-17.5); IMMATURE GRANULOCYTES 0.2 % (0-5); LYMPHOCYTES 8.6 % (15-50); MCH 31.4 pg (26.0-34.0); MCV 95.1 fL (80.0-100.0); NEUTROPHILS 78.3 % (40-80); PLATELET COUNT 78 10x3/uL (130-400); RBC 3.25 10x6/uL (4.20-6.10); WBC 8.9 10x3/uL (4.8-10.8)
[2018-01-06 05:04] LABS: INR 1.28 (0.85-1.17); PROTIME 15.6 SECONDS (11.6-15.0)
[2018-01-06 05:09] LABS: PLATELET ESTIMATE DECREASED
[2018-01-06 05:10] LABS: ALBUMIN 2.2 g/dL (3.4-5.0); ALKALINE PHOSPHATASE 49 U/L (46-116); CALC OSMOLALITY 281 mosm/kg (275-300); CALCIUM 7.3 mg/dL (8.5-10.1); CARBON DIOXIDE 31.4 mmol/L (21.0-32.0); CHLORIDE - SERUM 105 mmol/L (98-107); GLUCOSE 139 mg/dL (74-106); PHOSPHOROUS 2.1 mg/dL (2.5-4.9); POTASSIUM - SERUM 3.4 mmol/L (3.5-5.1); PROTEIN - SERUM 4.6 g/dL (6.4-8.2); SODIUM 140 mmol/L (136-145); TROPONIN-I 0.058 ng/mL (0.000-0.060); UREA NITROGEN 16 mg/dL (7-18)
[2018-01-06 05:13] LABS: CREATININE - SERUM 0.7 mg/dL (0.6-1.3); eGFR NON AFRICAN AMERICAN > 90 mL/min (90-120)
[2018-01-06 05:14] LABS: ALT (SGPT) 87 U/L (10-68)
[2018-01-06 15:38] LABS: MAGNESIUM - SERUM 1.9 mg/dL (1.8-2.4); POTASSIUM - SERUM 3.7 mmol/L (3.5-5.1)
[2018-01-07] VITALS (35 sets, daily range): BP systolic 103–145; BP diastolic 65–91; Ht 180.3 cm; Wt 72.8 kg
[2018-01-07 05:47] LABS: BASOPHILS 0 % (0-2); EOSINOPHILS 2.4 % (0-7); HEMATOCRIT 30.3 % (42.0-54.0); HEMOGLOBIN 10.1 g/dL (13.5-17.5); IMMATURE GRANULOCYTES 0.2 % (0-5); LYMPHOCYTES 8.3 % (15-50); MCH 31.6 pg (26.0-34.0); MCHC 33.3 g/dL (31.0-37.0); MCV 94.7 fL (80.0-100.0); MEAN PLATELET VOLUME 10.4 fL (7.4-10.4); MONOCYTES 8.4 % (2-11); NEUTROPHILS 80.7 % (40-80); PLATELET COUNT 95 10x3/uL (130-400); WBC 8.9 10x3/uL (4.8-10.8)
[2018-01-07 05:56] LABS: INR 1.28 (0.85-1.17); PROTIME 15.6 SECONDS (11.6-15.0)
[2018-01-07 05:57] LABS: APTT 36.2 SECONDS (22.8-39.4)
[2018-01-07 06:29] LABS: % SATURATION 53 % (15-55); IRON 62 ug/dl (35-150); TOTAL IRON BIND CAPACITY 115 ug/dl (260-445)
[2018-01-07 06:48] LABS: UNSAT IRON BIND CAPACITY 53 ug/dl (150-375)
[2018-01-07 06:50] LABS: ALBUMIN 2.4 g/dL (3.4-5.0); ALKALINE PHOSPHATASE 51 U/L (46-116); ALT (SGPT) 69 U/L (10-68); BILIRUBIN - TOTAL 1.39 mg/dL (0.2-1.3); CALC OSMOLALITY 278 mosm/kg (275-300); CALCIUM 7.3 mg/dL (8.5-10.1); CARBON DIOXIDE 31.8 mmol/L (21.0-32.0); CHLORIDE - SERUM 103 mmol/L (98-107); CREATININE - SERUM 0.8 mg/dL (0.6-1.3); FERRITIN 166 ng/mL (3-244); GLUCOSE 123 mg/dL (74-106); LDH 185 U/L (85-227); MAGNESIUM - SERUM 1.7 mg/dL (1.8-2.4); PHOSPHOROUS 2.1 mg/dL (2.5-4.9); POTASSIUM - SERUM 3.5 mmol/L (3.5-5.1); PROTEIN - SERUM 5.1 g/dL (6.4-8.2); SODIUM 139 mmol/L (136-145); UREA NITROGEN 12 mg/dL (7-18); eGFR NON AFRICAN AMERICAN > 90 mL/min (90-120)
[2018-01-08] VITALS (27 sets, daily range): BP systolic 105–161; BP diastolic 52–77
[2018-01-08 06:28] LABS: BASOPHILS 0 % (0-2); EOSINOPHILS 1.6 % (0-7); HEMATOCRIT 30.7 % (42.0-54.0); HEMOGLOBIN 10.2 g/dL (13.5-17.5); IMMATURE GRANULOCYTES 0.2 % (0-5); LYMPHOCYTES 8.9 % (15-50); MCH 31.8 pg (26.0-34.0); MCHC 33.2 g/dL (31.0-37.0); MCV 95.6 fL (80.0-100.0); MEAN PLATELET VOLUME 10.4 fL (7.4-10.4); NEUTROPHILS 82.3 % (40-80); RBC 3.21 10x6/uL (4.20-6.10); RDW 14.1 % (11.5-14.5); WBC 9.8 10x3/uL (4.8-10.8)
[2018-01-08 06:37] LABS: PLATELET COUNT 115 10x3/uL (130-400)
[2018-01-08 06:51] LABS: CALC OSMOLALITY 278 mosm/kg (275-300); CALCIUM 7.5 mg/dL (8.5-10.1); CARBON DIOXIDE 30.8 mmol/L (21.0-32.0); CHLORIDE - SERUM 104 mmol/L (98-107); CREATININE - SERUM 0.8 mg/dL (0.6-1.3); DIGOXIN 0.35 ng/mL (0.90-2.00); GLUCOSE 120 mg/dL (74-106); POTASSIUM - SERUM 3.4 mmol/L (3.5-5.1); SODIUM 140 mmol/L (136-145); UREA NITROGEN 11 mg/dL (7-18); eGFR NON AFRICAN AMERICAN > 90 mL/min (90-120)
[2018-01-09] VITALS (30 sets, daily range): BP systolic 27–158; BP diastolic 55–88
[2018-01-09 06:43] LABS: CALC OSMOLALITY 274 mosm/kg (275-300); CALCIUM 7.9 mg/dL (8.5-10.1); CARBON DIOXIDE 31.8 mmol/L (21.0-32.0); CHLORIDE - SERUM 103 mmol/L (98-107); CREATININE - SERUM 0.8 mg/dL (0.6-1.3); GLUCOSE 118 mg/dL (74-106); POTASSIUM - SERUM 3.3 mmol/L (3.5-5.1); SODIUM 138 mmol/L (136-145); eGFR NON AFRICAN AMERICAN > 90 mL/min (90-120)
[2018-01-09 06:44] LABS: UREA NITROGEN 8 mg/dL (7-18)
[2018-01-09 07:02] LABS: BASOPHILS 0 % (0-2); HEMOGLOBIN 10.1 g/dL (13.5-17.5); IMMATURE GRANULOCYTES 0.2 % (0-5); LYMPHOCYTES 4.5 % (15-50); MCH 32.1 pg (26.0-34.0); MCHC 33.7 g/dL (31.0-37.0); MCV 95.2 fL (80.0-100.0); MEAN PLATELET VOLUME 10.3 fL (7.4-10.4); MONOCYTES 7.6 % (2-11); NEUTROPHILS 86.7 % (40-80); PLATELET COUNT 134 10x3/uL (130-400); RBC 3.15 10x6/uL (4.20-6.10); WBC 10.5 10x3/uL (4.8-10.8)
[2018-01-10] VITALS (39 sets, daily range): BP systolic 99–135; BP diastolic 50–75
[2018-01-10 06:48] LABS: BASOPHILS 0 % (0-2); EOSINOPHILS 1.2 % (0-7); HEMATOCRIT 29.7 % (42.0-54.0); HEMOGLOBIN 9.8 g/dL (13.5-17.5); IMMATURE GRANULOCYTES 0.1 % (0-5); LYMPHOCYTES 7.4 % (15-50); MCH 31.6 pg (26.0-34.0); MCV 95.8 fL (80.0-100.0); MEAN PLATELET VOLUME 9.9 fL (7.4-10.4); MONOCYTES 9.1 % (2-11); NEUTROPHILS 82.2 % (40-80); PLATELET COUNT 138 10x3/uL (130-400); RDW 14.1 % (11.5-14.5); WBC 8.5 10x3/uL (4.8-10.8)
[2018-01-11] VITALS (35 sets, daily range): BP systolic 94–131; BP diastolic 2–69
[2018-01-11 05:26] LABS: BASOPHILS 0.1 % (0-2); EOSINOPHILS 1.4 % (0-7); HEMATOCRIT 28.6 % (42.0-54.0); HEMOGLOBIN 9.3 g/dL (13.5-17.5); IMMATURE GRANULOCYTES 0.2 % (0-5); LYMPHOCYTES 8.1 % (15-50); MCH 31.6 pg (26.0-34.0); MCHC 32.5 g/dL (31.0-37.0); MCV 97.3 fL (80.0-100.0); MEAN PLATELET VOLUME 9.8 fL (7.4-10.4); NEUTROPHILS 81.2 % (40-80); PLATELET COUNT 135 10x3/uL (130-400); RBC 2.94 10x6/uL (4.20-6.10); WBC 8.1 10x3/uL (4.8-10.8)
[2018-01-11 05:50] LABS: CALC OSMOLALITY 279 mosm/kg (275-300); CALCIUM 7.9 mg/dL (8.5-10.1); CARBON DIOXIDE 32.5 mmol/L (21.0-32.0); CHLORIDE - SERUM 106 mmol/L (98-107); CREATININE - SERUM 0.8 mg/dL (0.6-1.3); GLUCOSE 113 mg/dL (74-106); POTASSIUM - SERUM 3.8 mmol/L (3.5-5.1); SODIUM 141 mmol/L (136-145); UREA NITROGEN 7 mg/dL (7-18); eGFR NON AFRICAN AMERICAN > 90 mL/min (90-120)
[2018-01-11 14:50] LABS: ALBUMIN 2.8 g/dL (3.4-5.0); CALC OSMOLALITY 278 mosm/kg (275-300); CALCIUM 7.9 mg/dL (8.5-10.1); CARBON DIOXIDE 31.5 mmol/L (21.0-32.0); CHLORIDE - SERUM 106 mmol/L (98-107); GLUCOSE 106 mg/dL (74-106); MAGNESIUM - SERUM 1.8 mg/dL (1.8-2.4); PHOSPHOROUS 2.4 mg/dL (2.5-4.9); POTASSIUM - SERUM 4.1 mmol/L (3.5-5.1); PRE-ALBUMIN 10.1 mg/dL (18.0-35.7); SODIUM 141 mmol/L (136-145); UREA NITROGEN 7 mg/dL (7-18)
[2018-01-11 15:01] LABS: CREATININE - SERUM 0.5 mg/dL (0.6-1.3); eGFR NON AFRICAN AMERICAN > 90 mL/min (90-120)
[2018-01-12] VITALS (24 sets, daily range): BP systolic 93–130; BP diastolic 51–70
[2018-01-12 06:22] LABS: CALC OSMOLALITY 279 mosm/kg (275-300); CALCIUM 7.3 mg/dL (8.5-10.1); CHLORIDE - SERUM 107 mmol/L (98-107); CREATININE - SERUM 0.6 mg/dL (0.6-1.3); GLUCOSE 88 mg/dL (74-106); MAGNESIUM - SERUM 1.5 mg/dL (1.8-2.4); PHOSPHOROUS 2.5 mg/dL (2.5-4.9); POTASSIUM - SERUM 3.6 mmol/L (3.5-5.1); SODIUM 142 mmol/L (136-145); UREA NITROGEN 6 mg/dL (7-18); eGFR NON AFRICAN AMERICAN > 90 mL/min (90-120)
[2018-01-12 06:39] LABS: BASOPHILS 0.1 % (0-2); EOSINOPHILS 1.2 % (0-7); IMMATURE GRANULOCYTES 0.1 % (0-5); LYMPHOCYTES 8.9 % (15-50); MCH 31.5 pg (26.0-34.0); MCHC 32.1 g/dL (31.0-37.0); MCV 97.9 fL (80.0-100.0); MEAN PLATELET VOLUME 9.7 fL (7.4-10.4); NEUTROPHILS 83.7 % (40-80); PLATELET COUNT 134 10x3/uL (130-400); RBC 2.86 10x6/uL (4.20-6.10); RDW 13.7 % (11.5-14.5); WBC 6.9 10x3/uL (4.8-10.8)
[2018-01-13] VITALS (24 sets, daily range): BP systolic 100–145; BP diastolic 50–77
[2018-01-13 05:28] LABS: BASOPHILS 0.2 % (0-2); EOSINOPHILS 1.4 % (0-7); HEMATOCRIT 28.3 % (42.0-54.0); HEMOGLOBIN 9.2 g/dL (13.5-17.5); IMMATURE GRANULOCYTES 0.3 % (0-5); LYMPHOCYTES 11.4 % (15-50); MCH 31.5 pg (26.0-34.0); MCHC 32.5 g/dL (31.0-37.0); MCV 96.9 fL (80.0-100.0); MEAN PLATELET VOLUME 9.7 fL (7.4-10.4); MONOCYTES 8.5 % (2-11); NEUTROPHILS 78.2 % (40-80); PLATELET COUNT 138 10x3/uL (130-400); RBC 2.92 10x6/uL (4.20-6.10); RDW 13.6 % (11.5-14.5); WBC 6.3 10x3/uL (4.8-10.8)
[2018-01-13 06:27] LABS: CALC OSMOLALITY 277 mosm/kg (275-300); CALCIUM 7.3 mg/dL (8.5-10.1); CARBON DIOXIDE 34.4 mmol/L (21.0-32.0); CHLORIDE - SERUM 103 mmol/L (98-107); CREATININE - SERUM 0.7 mg/dL (0.6-1.3); GLUCOSE 100 mg/dL (74-106); MAGNESIUM - SERUM 1.4 mg/dL (1.8-2.4); PHOSPHOROUS 2.7 mg/dL (2.5-4.9); POTASSIUM - SERUM 3.4 mmol/L (3.5-5.1); SODIUM 141 mmol/L (136-145); eGFR NON AFRICAN AMERICAN > 90 mL/min (90-120)
[2018-01-13 06:28] LABS: UREA NITROGEN 4 mg/dL (7-18)
[2018-01-14] VITALS (24 sets, daily range): BP systolic 92–167; BP diastolic 51–99
[2018-01-14 06:02] LABS: BASOPHILS 0 % (0-2); EOSINOPHILS 1.6 % (0-7); HEMATOCRIT 26.8 % (42.0-54.0); HEMOGLOBIN 8.7 g/dL (13.5-17.5); IMMATURE GRANULOCYTES 0.2 % (0-5); LYMPHOCYTES 15.4 % (15-50); MCH 31.3 pg (26.0-34.0); MCHC 32.5 g/dL (31.0-37.0); MCV 96.4 fL (80.0-100.0); MEAN PLATELET VOLUME 9.7 fL (7.4-10.4); MONOCYTES 6.9 % (2-11); NEUTROPHILS 75.9 % (40-80); PLATELET COUNT 150 10x3/uL (130-400); RBC 2.78 10x6/uL (4.20-6.10); RDW 13.4 % (11.5-14.5); WBC 6.2 10x3/uL (4.8-10.8)
[2018-01-14 06:19] LABS: CALC OSMOLALITY 279 mosm/kg (275-300); CALCIUM 7.3 mg/dL (8.5-10.1); CARBON DIOXIDE 34.5 mmol/L (21.0-32.0); CHLORIDE - SERUM 104 mmol/L (98-107); CREATININE - SERUM 0.6 mg/dL (0.6-1.3); GLUCOSE 140 mg/dL (74-106); POTASSIUM - SERUM 3.6 mmol/L (3.5-5.1); SODIUM 141 mmol/L (136-145); UREA NITROGEN 5 mg/dL (7-18); eGFR NON AFRICAN AMERICAN > 90 mL/min (90-120)
[2018-01-14 06:20] LABS: MAGNESIUM - SERUM 1.8 mg/dL (1.8-2.4)
[2018-01-14 20:46] LABS: MAGNESIUM - SERUM 1.7 mg/dL (1.8-2.4); POTASSIUM - SERUM 3.4 mmol/L (3.5-5.1)
[2018-01-15] VITALS (25 sets, daily range): BP systolic 96–150; BP diastolic 58–98
[2018-01-15 05:44] LABS: BASOPHILS 0.1 % (0-2); EOSINOPHILS 1.7 % (0-7); HEMATOCRIT 30.9 % (42.0-54.0); HEMOGLOBIN 9.9 g/dL (13.5-17.5); IMMATURE GRANULOCYTES 0.4 % (0-5); LYMPHOCYTES 17.1 % (15-50); MCH 31.1 pg (26.0-34.0); MCV 97.2 fL (80.0-100.0); MEAN PLATELET VOLUME 10.1 fL (7.4-10.4); NEUTROPHILS 72.7 % (40-80); RBC 3.18 10x6/uL (4.20-6.10); RDW 13.6 % (11.5-14.5)
[2018-01-15 05:46] LABS: PLATELET COUNT 196 10x3/uL (130-400); WBC 8.5 10x3/uL (4.8-10.8)
[2018-01-15 06:10] LABS: ALBUMIN 2.9 g/dL (3.4-5.0); CALC OSMOLALITY 280 mosm/kg (275-300); CALCIUM 7.8 mg/dL (8.5-10.1); CARBON DIOXIDE 38.7 mmol/L (21.0-32.0); CHLORIDE - SERUM 102 mmol/L (98-107); CREATININE - SERUM 0.7 mg/dL (0.6-1.3); GLUCOSE 150 mg/dL (74-106); MAGNESIUM - SERUM 2.1 mg/dL (1.8-2.4); PHOSPHOROUS 2.1 mg/dL (2.5-4.9); POTASSIUM - SERUM 3.9 mmol/L (3.5-5.1); SODIUM 141 mmol/L (136-145); UREA NITROGEN 5 mg/dL (7-18); eGFR NON AFRICAN AMERICAN > 90 mL/min (90-120)
[2018-01-16] VITALS (24 sets, daily range): BP systolic 96–165; BP diastolic 56–89
[2018-01-16 06:26] LABS: BASOPHILS 0.1 % (0-2); EOSINOPHILS 1.5 % (0-7); HEMATOCRIT 29.4 % (42.0-54.0); HEMOGLOBIN 9.7 g/dL (13.5-17.5); IMMATURE GRANULOCYTES 0.3 % (0-5); LYMPHOCYTES 13.6 % (15-50); MCH 32.1 pg (26.0-34.0); MCV 97.4 fL (80.0-100.0); MEAN PLATELET VOLUME 10.4 fL (7.4-10.4); MONOCYTES 7.6 % (2-11); NEUTROPHILS 76.9 % (40-80); PLATELET COUNT 280 10x3/uL (130-400); RBC 3.02 10x6/uL (4.20-6.10); RDW 13.4 % (11.5-14.5); WBC 7.3 10x3/uL (4.8-10.8)
[2018-01-16 06:37] LABS: CALC OSMOLALITY 279 mosm/kg (275-300); CALCIUM 8.1 mg/dL (8.5-10.1); CHLORIDE - SERUM 100 mmol/L (98-107); GLUCOSE 118 mg/dL (74-106); MAGNESIUM - SERUM 1.8 mg/dL (1.8-2.4); PHOSPHOROUS 2.2 mg/dL (2.5-4.9); POTASSIUM - SERUM 3.7 mmol/L (3.5-5.1); SODIUM 141 mmol/L (136-145); UREA NITROGEN 6 mg/dL (7-18)
[2018-01-16 07:01] LABS: CREATININE - SERUM 0.5 mg/dL (0.6-1.3); eGFR NON AFRICAN AMERICAN > 90 mL/min (90-120)
[2018-01-16 07:02] LABS: CARBON DIOXIDE 41.6 mmol/L (21.0-32.0)
[2018-01-17] VITALS (24 sets, daily range): BP systolic 78–143; BP diastolic 39–84
[2018-01-17 06:42] LABS: BASOPHILS 0.1 % (0-2); EOSINOPHILS 2.1 % (0-7); HEMATOCRIT 29.5 % (42.0-54.0); HEMOGLOBIN 9.6 g/dL (13.5-17.5); IMMATURE GRANULOCYTES 0.2 % (0-5); LYMPHOCYTES 18.2 % (15-50); MCH 31.4 pg (26.0-34.0); MCHC 32.5 g/dL (31.0-37.0); MCV 96.4 fL (80.0-100.0); MEAN PLATELET VOLUME 9.7 fL (7.4-10.4); MONOCYTES 9.4 % (2-11); PLATELET COUNT 334 10x3/uL (130-400); RBC 3.06 10x6/uL (4.20-6.10); RDW 13.6 % (11.5-14.5); WBC 8.2 10x3/uL (4.8-10.8)
[2018-01-17 06:43] LABS: CALCIUM 8.5 mg/dL (8.5-10.1); CHLORIDE - SERUM 98 mmol/L (98-107); CREATININE - SERUM 0.6 mg/dL (0.6-1.3); GLUCOSE 119 mg/dL (74-106); MAGNESIUM - SERUM 1.8 mg/dL (1.8-2.4); PHOSPHOROUS 2.7 mg/dL (2.5-4.9); POTASSIUM - SERUM 3.4 mmol/L (3.5-5.1); SODIUM 140 mmol/L (136-145); eGFR NON AFRICAN AMERICAN > 90 mL/min (90-120)
[2018-01-17 06:45] LABS: CALC OSMOLALITY 277 mosm/kg (275-300); UREA NITROGEN 8 mg/dL (7-18)
[2018-01-17 06:46] LABS: CARBON DIOXIDE 43.8 mmol/L (21.0-32.0)
[2018-01-18] VITALS (24 sets, daily range): BP systolic 94–143; BP diastolic 53–83
[2018-01-18 06:00] LABS: BASOPHILS 0.2 % (0-2); EOSINOPHILS 3.4 % (0-7); HEMATOCRIT 28.9 % (42.0-54.0); HEMOGLOBIN 9.4 g/dL (13.5-17.5); IMMATURE GRANULOCYTES 0.2 % (0-5); LYMPHOCYTES 19.4 % (15-50); MCH 31.4 pg (26.0-34.0); MCHC 32.5 g/dL (31.0-37.0); MCV 96.7 fL (80.0-100.0); MEAN PLATELET VOLUME 9.5 fL (7.4-10.4); MONOCYTES 14.8 % (2-11); PLATELET COUNT 383 10x3/uL (130-400); RBC 2.99 10x6/uL (4.20-6.10); RDW 14.1 % (11.5-14.5); WBC 6.4 10x3/uL (4.8-10.8)
[2018-01-18 06:16] LABS: CALC OSMOLALITY 282 mosm/kg (275-300); CALCIUM 8.4 mg/dL (8.5-10.1); CHLORIDE - SERUM 101 mmol/L (98-107); CREATININE - SERUM 0.6 mg/dL (0.6-1.3); GLUCOSE 133 mg/dL (74-106); POTASSIUM - SERUM 3.3 mmol/L (3.5-5.1); SODIUM 142 mmol/L (136-145); UREA NITROGEN 7 mg/dL (7-18); eGFR NON AFRICAN AMERICAN > 90 mL/min (90-120)
[2018-01-18 06:18] LABS: CARBON DIOXIDE 41.8 mmol/L (21.0-32.0)
[2018-01-19] VITALS (19 sets, daily range): BP systolic 86–129; BP diastolic 44–75
[2018-01-20] VITALS (22 sets, daily range): BP systolic 72–152; BP diastolic 45–85
[2018-01-20 05:15] LABS: BASOPHILS 0.4 % (0-2); EOSINOPHILS 4.5 % (0-7); HEMATOCRIT 31.6 % (42.0-54.0); HEMOGLOBIN 10.3 g/dL (13.5-17.5); IMMATURE GRANULOCYTES 0.1 % (0-5); LYMPHOCYTES 22.7 % (15-50); MCH 31.6 pg (26.0-34.0); MCHC 32.6 g/dL (31.0-37.0); MCV 96.9 fL (80.0-100.0); MEAN PLATELET VOLUME 9.6 fL (7.4-10.4); MONOCYTES 12.2 % (2-11); NEUTROPHILS 60.1 % (40-80); PLATELET COUNT 484 10x3/uL (130-400); RBC 3.26 10x6/uL (4.20-6.10); RDW 14.3 % (11.5-14.5); WBC 7.9 10x3/uL (4.8-10.8)
[2018-01-20 05:58] LABS: CALC OSMOLALITY 281 mosm/kg (275-300); CARBON DIOXIDE 35.5 mmol/L (21.0-32.0); CHLORIDE - SERUM 100 mmol/L (98-107); CREATININE - SERUM 0.6 mg/dL (0.6-1.3); GLUCOSE 153 mg/dL (74-106); MAGNESIUM - SERUM 1.9 mg/dL (1.8-2.4); POTASSIUM - SERUM 3.6 mmol/L (3.5-5.1); SODIUM 140 mmol/L (136-145); eGFR NON AFRICAN AMERICAN > 90 mL/min (90-120)
[2018-01-20 06:01] LABS: UREA NITROGEN 12 mg/dL (7-18)
[2018-01-21] VITALS (23 sets, daily range): BP systolic 93–160; BP diastolic 51–87
[2018-01-21 05:06] LABS: CALC OSMOLALITY 280 mosm/kg (275-300); CALCIUM 8.9 mg/dL (8.5-10.1); CARBON DIOXIDE 35.3 mmol/L (21.0-32.0); CHLORIDE - SERUM 102 mmol/L (98-107); CREATININE - SERUM 0.7 mg/dL (0.6-1.3); GLUCOSE 121 mg/dL (74-106); PHOSPHOROUS 2.7 mg/dL (2.5-4.9); POTASSIUM - SERUM 3.6 mmol/L (3.5-5.1); SODIUM 140 mmol/L (136-145); UREA NITROGEN 14 mg/dL (7-18); eGFR NON AFRICAN AMERICAN > 90 mL/min (90-120)
[2018-01-22] VITALS (22 sets, daily range): BP systolic 95–153; BP diastolic 39–93
[2018-01-22 06:23] LABS: BASOPHILS 0.4 % (0-2); EOSINOPHILS 4.6 % (0-7); HEMATOCRIT 32.2 % (42.0-54.0); HEMOGLOBIN 10.5 g/dL (13.5-17.5); IMMATURE GRANULOCYTES 0.3 % (0-5); LYMPHOCYTES 27.5 % (15-50); MCH 31.6 pg (26.0-34.0); MCHC 32.6 g/dL (31.0-37.0); MEAN PLATELET VOLUME 9.7 fL (7.4-10.4); MONOCYTES 14.6 % (2-11); NEUTROPHILS 52.6 % (40-80); PLATELET COUNT 522 10x3/uL (130-400); RBC 3.32 10x6/uL (4.20-6.10); RDW 14.4 % (11.5-14.5); WBC 7.2 10x3/uL (4.8-10.8)
[2018-01-22 06:48] LABS: CALC OSMOLALITY 281 mosm/kg (275-300); CALCIUM 8.6 mg/dL (8.5-10.1); CARBON DIOXIDE 32.8 mmol/L (21.0-32.0); CHLORIDE - SERUM 103 mmol/L (98-107); CREATININE - SERUM 0.6 mg/dL (0.6-1.3); GLUCOSE 125 mg/dL (74-106); MAGNESIUM - SERUM 1.9 mg/dL (1.8-2.4); PHOSPHOROUS 2.9 mg/dL (2.5-4.9); POTASSIUM - SERUM 3.9 mmol/L (3.5-5.1); SODIUM 140 mmol/L (136-145); UREA NITROGEN 17 mg/dL (7-18); eGFR NON AFRICAN AMERICAN > 90 mL/min (90-120)
[2018-01-23] VITALS (24 sets, daily range): BP systolic 94–159; BP diastolic 50–90
[2018-01-23 06:32] LABS: BASOPHILS 0.1 % (0-2); EOSINOPHILS 5.1 % (0-7); HEMATOCRIT 31.3 % (42.0-54.0); HEMOGLOBIN 10.1 g/dL (13.5-17.5); IMMATURE GRANULOCYTES 0.1 % (0-5); LYMPHOCYTES 33.9 % (15-50); MCH 31.3 pg (26.0-34.0); MCHC 32.3 g/dL (31.0-37.0); MCV 96.9 fL (80.0-100.0); MEAN PLATELET VOLUME 9.5 fL (7.4-10.4); MONOCYTES 14.2 % (2-11); NEUTROPHILS 46.6 % (40-80); RBC 3.23 10x6/uL (4.20-6.10); RDW 14.3 % (11.5-14.5); WBC 7.6 10x3/uL (4.8-10.8)
[2018-01-23 06:43] LABS: PLATELET COUNT 410 10x3/uL (130-400)
[2018-01-23 06:51] LABS: CALC OSMOLALITY 285 mosm/kg (275-300); CALCIUM 8.7 mg/dL (8.5-10.1); CARBON DIOXIDE 34.7 mmol/L (21.0-32.0); CHLORIDE - SERUM 103 mmol/L (98-107); GLUCOSE 137 mg/dL (74-106); MAGNESIUM - SERUM 1.9 mg/dL (1.8-2.4); POTASSIUM - SERUM 4.2 mmol/L (3.5-5.1); SODIUM 141 mmol/L (136-145); UREA NITROGEN 20 mg/dL (7-18)
[2018-01-23 06:52] LABS: CREATININE - SERUM 0.8 mg/dL (0.6-1.3); eGFR NON AFRICAN AMERICAN > 90 mL/min (90-120)
[2018-01-24] VITALS (29 sets, daily range): BP systolic 60–170; BP diastolic 36–90
[2018-01-24 06:41] LABS: HEMATOCRIT 30.8 % (42.0-54.0); HEMOGLOBIN 9.9 g/dL (13.5-17.5); MCH 30.9 pg (26.0-34.0); MCHC 32.1 g/dL (31.0-37.0); MCV 96.3 fL (80.0-100.0); MEAN PLATELET VOLUME 9.9 fL (7.4-10.4); PLATELET COUNT 435 10x3/uL (130-400); RDW 13.9 % (11.5-14.5); WBC 7.7 10x3/uL (4.8-10.8)
[2018-01-24 06:53] LABS: CALC OSMOLALITY 285 mosm/kg (275-300); CALCIUM 8.9 mg/dL (8.5-10.1); CARBON DIOXIDE 35.3 mmol/L (21.0-32.0); CHLORIDE - SERUM 102 mmol/L (98-107); CREATININE - SERUM 0.6 mg/dL (0.6-1.3); GLUCOSE 131 mg/dL (74-106); MAGNESIUM - SERUM 1.8 mg/dL (1.8-2.4); POTASSIUM - SERUM 4.1 mmol/L (3.5-5.1); SODIUM 141 mmol/L (136-145); UREA NITROGEN 22 mg/dL (7-18); eGFR NON AFRICAN AMERICAN > 90 mL/min (90-120)
[2018-01-24 07:20] LABS: EOSINOPHILS 9 % (0-7); LYMPHOCYTES 29 % (15-50); MONOCYTES 14 % (2-11); NEUTROPHILS 41 % (40-80); PLATELET ESTIMATE INCREASED
[2018-01-24 07:21] LABS: ANISOCYTOSIS OCC
[2018-01-25] VITALS (24 sets, daily range): BP systolic 97–163; BP diastolic 58–105
[2018-01-25 06:40] LABS: BASOPHILS 0.3 % (0-2); HEMATOCRIT 32.7 % (42.0-54.0); HEMOGLOBIN 10.6 g/dL (13.5-17.5); IMMATURE GRANULOCYTES 0.2 % (0-5); LYMPHOCYTES 24.4 % (15-50); MCHC 32.4 g/dL (31.0-37.0); MCV 95.6 fL (80.0-100.0); MEAN PLATELET VOLUME 10.1 fL (7.4-10.4); MONOCYTES 16.5 % (2-11); NEUTROPHILS 56.6 % (40-80); PLATELET COUNT 442 10x3/uL (130-400); RBC 3.42 10x6/uL (4.20-6.10); WBC 10.8 10x3/uL (4.8-10.8)
[2018-01-25 06:55] LABS: CALC OSMOLALITY 283 mosm/kg (275-300); CALCIUM 9.1 mg/dL (8.5-10.1); CARBON DIOXIDE 37.1 mmol/L (21.0-32.0); CHLORIDE - SERUM 99 mmol/L (98-107); CREATININE - SERUM 0.8 mg/dL (0.6-1.3); GLUCOSE 189 mg/dL (74-106); MAGNESIUM - SERUM 2.1 mg/dL (1.8-2.4); POTASSIUM - SERUM 4.6 mmol/L (3.5-5.1); SODIUM 138 mmol/L (136-145); UREA NITROGEN 22 mg/dL (7-18); eGFR NON AFRICAN AMERICAN > 90 mL/min (90-120)
[2018-01-26] VITALS (25 sets, daily range): BP systolic 67–162; BP diastolic 46–92
[2018-01-26 06:15] LABS: BASOPHILS 0.2 % (0-2); EOSINOPHILS 2.2 % (0-7); HEMATOCRIT 30.9 % (42.0-54.0); IMMATURE GRANULOCYTES 0.6 % (0-5); LYMPHOCYTES 19.2 % (15-50); MCH 31.3 pg (26.0-34.0); MCHC 32.4 g/dL (31.0-37.0); MCV 96.6 fL (80.0-100.0); MEAN PLATELET VOLUME 10.5 fL (7.4-10.4); MONOCYTES 15.7 % (2-11); NEUTROPHILS 62.1 % (40-80); PLATELET COUNT 412 10x3/uL (130-400); WBC 10.5 10x3/uL (4.8-10.8)
[2018-01-26 06:29] LABS: CALC OSMOLALITY 284 mosm/kg (275-300); CALCIUM 8.5 mg/dL (8.5-10.1); CARBON DIOXIDE 37.4 mmol/L (21.0-32.0); CHLORIDE - SERUM 100 mmol/L (98-107); CREATININE - SERUM 0.7 mg/dL (0.6-1.3); GLUCOSE 173 mg/dL (74-106); MAGNESIUM - SERUM 1.7 mg/dL (1.8-2.4); POTASSIUM - SERUM 4.6 mmol/L (3.5-5.1); SODIUM 140 mmol/L (136-145); UREA NITROGEN 18 mg/dL (7-18); eGFR NON AFRICAN AMERICAN > 90 mL/min (90-120)
[2018-01-27] VITALS (24 sets, daily range): BP systolic 90–149; BP diastolic 47–77
[2018-01-27 07:10] LABS: BASOPHILS 0.3 % (0-2); HEMATOCRIT 30.3 % (42.0-54.0); HEMOGLOBIN 9.8 g/dL (13.5-17.5); IMMATURE GRANULOCYTES 0.3 % (0-5); LYMPHOCYTES 21.4 % (15-50); MCH 31.1 pg (26.0-34.0); MCHC 32.3 g/dL (31.0-37.0); MCV 96.2 fL (80.0-100.0); MONOCYTES 18.3 % (2-11); NEUTROPHILS 56.7 % (40-80); PLATELET COUNT 359 10x3/uL (130-400); RBC 3.15 10x6/uL (4.20-6.10); WBC 11.9 10x3/uL (4.8-10.8)
[2018-01-27 07:26] LABS: CALC OSMOLALITY 281 mosm/kg (275-300); CALCIUM 8.8 mg/dL (8.5-10.1); CARBON DIOXIDE 34.9 mmol/L (21.0-32.0); CHLORIDE - SERUM 100 mmol/L (98-107); CREATININE - SERUM 0.6 mg/dL (0.6-1.3); GLUCOSE 137 mg/dL (74-106); MAGNESIUM - SERUM 1.7 mg/dL (1.8-2.4); POTASSIUM - SERUM 4.1 mmol/L (3.5-5.1); SODIUM 139 mmol/L (136-145); UREA NITROGEN 18 mg/dL (7-18); eGFR NON AFRICAN AMERICAN > 90 mL/min (90-120)
[2018-01-28] VITALS (26 sets, daily range): BP systolic 98–173; BP diastolic 49–93
[2018-01-28 04:21] LABS: BASOPHILS 0.4 % (0-2); EOSINOPHILS 3.2 % (0-7); HEMATOCRIT 29.3 % (42.0-54.0); HEMOGLOBIN 9.5 g/dL (13.5-17.5); IMMATURE GRANULOCYTES 0.3 % (0-5); LYMPHOCYTES 21.5 % (15-50); MCH 31.7 pg (26.0-34.0); MCHC 32.4 g/dL (31.0-37.0); MCV 97.7 fL (80.0-100.0); MEAN PLATELET VOLUME 10.4 fL (7.4-10.4); MONOCYTES 16.4 % (2-11); NEUTROPHILS 58.2 % (40-80); PLATELET COUNT 316 10x3/uL (130-400); RDW 14.1 % (11.5-14.5)
[2018-01-28 04:44] LABS: CALC OSMOLALITY 286 mosm/kg (275-300); CALCIUM 8.6 mg/dL (8.5-10.1); CARBON DIOXIDE 36.9 mmol/L (21.0-32.0); CHLORIDE - SERUM 101 mmol/L (98-107); CREATININE - SERUM 0.5 mg/dL (0.6-1.3); GLUCOSE 132 mg/dL (74-106); POTASSIUM - SERUM 4.5 mmol/L (3.5-5.1); SODIUM 142 mmol/L (136-145); UREA NITROGEN 17 mg/dL (7-18); eGFR NON AFRICAN AMERICAN > 90 mL/min (90-120)
[2018-01-29] VITALS (24 sets, daily range): BP systolic 101–148; BP diastolic 54–81
[2018-01-29 04:49] LABS: BASOPHILS 0.5 % (0-2); EOSINOPHILS 2.6 % (0-7); HEMATOCRIT 31.4 % (42.0-54.0); HEMOGLOBIN 9.9 g/dL (13.5-17.5); IMMATURE GRANULOCYTES 0.3 % (0-5); LYMPHOCYTES 19.3 % (15-50); MCHC 31.5 g/dL (31.0-37.0); MCV 98.4 fL (80.0-100.0); MEAN PLATELET VOLUME 11.2 fL (7.4-10.4); MONOCYTES 13.7 % (2-11); NEUTROPHILS 63.6 % (40-80); PLATELET COUNT 334 10x3/uL (130-400); RBC 3.19 10x6/uL (4.20-6.10); RDW 13.8 % (11.5-14.5); WBC 9.9 10x3/uL (4.8-10.8)
[2018-01-29 05:01] LABS: CALCIUM 8.8 mg/dL (8.5-10.1); CARBON DIOXIDE 38.2 mmol/L (21.0-32.0); CREATININE - SERUM 0.6 mg/dL (0.6-1.3); GLUCOSE 107 mg/dL (74-106); MAGNESIUM - SERUM 1.8 mg/dL (1.8-2.4); PHOSPHOROUS 2.9 mg/dL (2.5-4.9); UREA NITROGEN 17 mg/dL (7-18); eGFR NON AFRICAN AMERICAN > 90 mL/min (90-120)
[2018-01-29 05:46] LABS: CALC OSMOLALITY 280 mosm/kg (275-300); CHLORIDE - SERUM 97 mmol/L (98-107); POTASSIUM - SERUM 4.2 mmol/L (3.5-5.1); SODIUM 140 mmol/L (136-145)
[2018-01-29] MEDS ORDERED: IPRAT-ALBUT 0.5-3 ML UPD (12:20)
[2018-01-29] MEDS ORDERED: VENTOLIN HFA18 GM INJ (12:21)
[2018-01-29] MEDS ORDERED: AGGRENOX 200/251 CAP PO (12:22)
[2018-01-29] MEDS ORDERED: GLIMEPIRIDE2 MG PO (12:22)
[2018-01-29] MEDS ORDERED: PRINIVIL10 MG PO (12:23)
[2018-01-29] MEDS ORDERED: GABAPENTIN100 MG PO (12:24)
[2018-01-29] MEDS ORDERED: NORCO 7.5/325 T1 TA1 PO (12:24)
[2018-01-29] MEDS ORDERED: PROMETHAZINE W473 ML PO (13:42)
[2018-01-29] MEDS ORDERED: NORCO 5/325 TAB1 TAB PO (13:43)
[2018-01-30] VITALS (25 sets, daily range): BP systolic 85–177; BP diastolic 53–100
[2018-01-30 04:19] LABS: BASOPHILS 0.3 % (0-2); EOSINOPHILS 2.2 % (0-7); HEMATOCRIT 32.3 % (42.0-54.0); HEMOGLOBIN 10.4 g/dL (13.5-17.5); IMMATURE GRANULOCYTES 0.3 % (0-5); MCH 31.2 pg (26.0-34.0); MCHC 32.2 g/dL (31.0-37.0); MEAN PLATELET VOLUME 11.1 fL (7.4-10.4); NEUTROPHILS 65.2 % (40-80); PLATELET COUNT 324 10x3/uL (130-400); RBC 3.33 10x6/uL (4.20-6.10); RDW 13.6 % (11.5-14.5)
[2018-01-30 04:22] LABS: WBC 14.5 10x3/uL (4.8-10.8)
[2018-01-30 04:38] LABS: CALC OSMOLALITY 285 mosm/kg (275-300); CALCIUM 8.8 mg/dL (8.5-10.1); CARBON DIOXIDE 35.4 mmol/L (21.0-32.0); CHLORIDE - SERUM 100 mmol/L (98-107); CREATININE - SERUM 0.7 mg/dL (0.6-1.3); POTASSIUM - SERUM 4.5 mmol/L (3.5-5.1); SODIUM 141 mmol/L (136-145); UREA NITROGEN 16 mg/dL (7-18); eGFR NON AFRICAN AMERICAN > 90 mL/min (90-120)
[2018-01-30 04:43] LABS: GLUCOSE 176 mg/dL (74-106)
[2018-01-31] VITALS (24 sets, daily range): BP systolic 80–156; BP diastolic 49–122
[2018-01-31 04:21] LABS: BASOPHILS 0.2 % (0-2); EOSINOPHILS 1.4 % (0-7); HEMATOCRIT 29.7 % (42.0-54.0); HEMOGLOBIN 9.6 g/dL (13.5-17.5); IMMATURE GRANULOCYTES 0.2 % (0-5); LYMPHOCYTES 17.5 % (15-50); MCH 31.3 pg (26.0-34.0); MCHC 32.3 g/dL (31.0-37.0); MCV 96.7 fL (80.0-100.0); MEAN PLATELET VOLUME 11.3 fL (7.4-10.4); MONOCYTES 12.2 % (2-11); NEUTROPHILS 68.5 % (40-80); PLATELET COUNT 310 10x3/uL (130-400); RBC 3.07 10x6/uL (4.20-6.10); RDW 13.7 % (11.5-14.5); WBC 13.1 10x3/uL (4.8-10.8)
[2018-01-31 04:46] LABS: CALC OSMOLALITY 281 mosm/kg (275-300); CARBON DIOXIDE 35.8 mmol/L (21.0-32.0); CHLORIDE - SERUM 99 mmol/L (98-107); CREATININE - SERUM 0.6 mg/dL (0.6-1.3); GLUCOSE 165 mg/dL (74-106); POTASSIUM - SERUM 4.3 mmol/L (3.5-5.1); SODIUM 138 mmol/L (136-145); UREA NITROGEN 19 mg/dL (7-18); eGFR NON AFRICAN AMERICAN > 90 mL/min (90-120)
[2018-02-01] VITALS (24 sets, daily range): BP systolic 108–165; BP diastolic 59–98
[2018-02-01 02:04] LABS: BASOPHILS 0.1 % (0-2); EOSINOPHILS 1.5 % (0-7); HEMATOCRIT 34.7 % (42.0-54.0); HEMOGLOBIN 11.2 g/dL (13.5-17.5); IMMATURE GRANULOCYTES 0.6 % (0-5); LYMPHOCYTES 7.8 % (15-50); MCH 31.9 pg (26.0-34.0); MCHC 32.3 g/dL (31.0-37.0); MEAN PLATELET VOLUME 9.2 fL (7.4-10.4); RBC 3.51 10x6/uL (4.20-6.10); RDW 17.5 % (11.5-14.5); WBC 12.2 10x3/uL (4.8-10.8)
[2018-02-01 02:05] LABS: MCV 98.9 fL (80.0-100.0); PLATELET COUNT 162 10x3/uL (130-400)
[2018-02-01 02:27] LABS: ANION GAP 14.7 mmol/L (8-16); CALCIUM 8.2 mg/dL (8.5-10.1); CREATININE - SERUM 1.6 mg/dL (0.6-1.3); MAGNESIUM - SERUM 2.5 mg/dL (1.8-2.4); PHOSPHOROUS 3.4 mg/dL (2.5-4.9); POTASSIUM - SERUM 3.7 mmol/L (3.5-5.1); THYROID STIMULATING HORMONE 1.82 uIU/mL (0.36-3.74)
[2018-02-02] VITALS (23 sets, daily range): BP systolic 94–191; BP diastolic 61–109
[2018-02-03] VITALS (23 sets, daily range): BP systolic 80–162; BP diastolic 50–102
[2018-02-03 02:52] LABS: BASOPHILS 0.2 % (0-2); HEMATOCRIT 30.5 % (42.0-54.0); HEMOGLOBIN 9.9 g/dL (13.5-17.5); IMMATURE GRANULOCYTES 0.3 % (0-5); LYMPHOCYTES 16.3 % (15-50); MCH 31.2 pg (26.0-34.0); MCHC 32.5 g/dL (31.0-37.0); MCV 96.2 fL (80.0-100.0); MEAN PLATELET VOLUME 10.8 fL (7.4-10.4); MONOCYTES 9.8 % (2-11); NEUTROPHILS 72.4 % (40-80); RBC 3.17 10x6/uL (4.20-6.10); RDW 13.6 % (11.5-14.5); WBC 14.4 10x3/uL (4.8-10.8)
[2018-02-03 02:56] LABS: PLATELET COUNT 288 10x3/uL (130-400)
[2018-02-03 03:08] LABS: ALBUMIN 2.9 g/dL (3.4-5.0); ALKALINE PHOSPHATASE 154 U/L (46-116); ALT (SGPT) 47 U/L (10-68); BILIRUBIN - TOTAL 0.41 mg/dL (0.2-1.3); CALC OSMOLALITY 283 mosm/kg (275-300); CALCIUM 8.9 mg/dL (8.5-10.1); CARBON DIOXIDE 39.5 mmol/L (21.0-32.0); CHLORIDE - SERUM 102 mmol/L (98-107); CREATININE - SERUM 0.6 mg/dL (0.6-1.3); GLUCOSE 167 mg/dL (74-106); MAGNESIUM - SERUM 1.9 mg/dL (1.8-2.4); PHOSPHOROUS 3.6 mg/dL (2.5-4.9); POTASSIUM - SERUM 4.4 mmol/L (3.5-5.1); PROTEIN - SERUM 7.5 g/dL (6.4-8.2); SODIUM 140 mmol/L (136-145); UREA NITROGEN 14 mg/dL (7-18); eGFR NON AFRICAN AMERICAN > 90 mL/min (90-120)
[2018-02-04] VITALS (24 sets, daily range): BP systolic 99–193; BP diastolic 65–96
[2018-02-04 03:38] LABS: BASOPHILS 0.1 % (0-2); HEMATOCRIT 27.1 % (42.0-54.0); HEMOGLOBIN 8.7 g/dL (13.5-17.5); IMMATURE GRANULOCYTES 0.2 % (0-5); LYMPHOCYTES 19.1 % (15-50); MCHC 32.1 g/dL (31.0-37.0); MCV 96.4 fL (80.0-100.0); MEAN PLATELET VOLUME 10.1 fL (7.4-10.4); MONOCYTES 10.2 % (2-11); NEUTROPHILS 67.4 % (40-80); PLATELET COUNT 243 10x3/uL (130-400); RBC 2.81 10x6/uL (4.20-6.10); RDW 13.8 % (11.5-14.5); WBC 13.7 10x3/uL (4.8-10.8)
[2018-02-04 03:54] LABS: CALC OSMOLALITY 282 mosm/kg (275-300); CARBON DIOXIDE 38.5 mmol/L (21.0-32.0); CHLORIDE - SERUM 99 mmol/L (98-107); CREATININE - SERUM 0.6 mg/dL (0.6-1.3); DIGOXIN 0.55 ng/mL (0.90-2.00); GLUCOSE 161 mg/dL (74-106); POTASSIUM - SERUM 4.3 mmol/L (3.5-5.1); SODIUM 140 mmol/L (136-145); UREA NITROGEN 15 mg/dL (7-18); eGFR NON AFRICAN AMERICAN > 90 mL/min (90-120)
[2018-02-05] VITALS (23 sets, daily range): BP systolic 95–188; BP diastolic 56–113
[2018-02-05 04:00] LABS: HEMATOCRIT 31.4 % (42.0-54.0); HEMOGLOBIN 10.1 g/dL (13.5-17.5); MCH 31.1 pg (26.0-34.0); MCHC 32.2 g/dL (31.0-37.0); MCV 96.6 fL (80.0-100.0); MEAN PLATELET VOLUME 10.4 fL (7.4-10.4); PLATELET COUNT 302 10x3/uL (130-400); RBC 3.25 10x6/uL (4.20-6.10); RDW 13.7 % (11.5-14.5); WBC 20.4 10x3/uL (4.8-10.8)
[2018-02-05 04:19] LABS: BASOPHILS 1 % (0-2); EOSINOPHILS 4 % (0-7); LYMPHOCYTES 19 % (15-50); MONOCYTES 4 % (2-11); NEUTROPHILS 72 % (40-80); PLATELET ESTIMATE NORMAL
[2018-02-06] VITALS (24 sets, daily range): BP systolic 102–187; BP diastolic 61–147
[2018-02-06 03:34] LABS: BASOPHILS 0.2 % (0-2); EOSINOPHILS 2.7 % (0-7); HEMATOCRIT 28.9 % (42.0-54.0); HEMOGLOBIN 9.2 g/dL (13.5-17.5); IMMATURE GRANULOCYTES 0.2 % (0-5); LYMPHOCYTES 11.7 % (15-50); MCH 30.9 pg (26.0-34.0); MCHC 31.8 g/dL (31.0-37.0); MEAN PLATELET VOLUME 10.5 fL (7.4-10.4); MONOCYTES 6.4 % (2-11); NEUTROPHILS 78.8 % (40-80); PLATELET COUNT 275 10x3/uL (130-400); RBC 2.98 10x6/uL (4.20-6.10); RDW 13.8 % (11.5-14.5); WBC 17.3 10x3/uL (4.8-10.8)
[2018-02-07] VITALS (23 sets, daily range): BP systolic 103–176; BP diastolic 56–107
[2018-02-07 04:11] LABS: BASOPHILS 0.2 % (0-2); EOSINOPHILS 3.3 % (0-7); HEMATOCRIT 27.8 % (42.0-54.0); HEMOGLOBIN 8.9 g/dL (13.5-17.5); IMMATURE GRANULOCYTES 0.2 % (0-5); LYMPHOCYTES 16.2 % (15-50); MCH 30.6 pg (26.0-34.0); MCV 95.5 fL (80.0-100.0); MEAN PLATELET VOLUME 10.1 fL (7.4-10.4); MONOCYTES 9.3 % (2-11); NEUTROPHILS 70.8 % (40-80); PLATELET COUNT 246 10x3/uL (130-400); RBC 2.91 10x6/uL (4.20-6.10); RDW 13.9 % (11.5-14.5); WBC 14.1 10x3/uL (4.8-10.8)
[2018-02-08] VITALS (24 sets, daily range): BP systolic 91–188; BP diastolic 60–106
[2018-02-08 03:13] LABS: BASOPHILS 0.2 % (0-2); EOSINOPHILS 2.6 % (0-7); HEMATOCRIT 32.2 % (42.0-54.0); HEMOGLOBIN 10.2 g/dL (13.5-17.5); IMMATURE GRANULOCYTES 0.4 % (0-5); LYMPHOCYTES 13.2 % (15-50); MCH 30.8 pg (26.0-34.0); MCHC 31.7 g/dL (31.0-37.0); MCV 97.3 fL (80.0-100.0); MEAN PLATELET VOLUME 10.9 fL (7.4-10.4); NEUTROPHILS 74.6 % (40-80); RBC 3.31 10x6/uL (4.20-6.10); RDW 13.9 % (11.5-14.5)
[2018-02-08 03:15] LABS: PLATELET COUNT 302 10x3/uL (130-400); WBC 19.3 10x3/uL (4.8-10.8)
[2018-02-09] VITALS (22 sets, daily range): BP systolic 77–141; BP diastolic 52–90
[2018-02-09 03:25] LABS: BASOPHILS 0.2 % (0-2); EOSINOPHILS 1.5 % (0-7); HEMATOCRIT 31.2 % (42.0-54.0); HEMOGLOBIN 9.9 g/dL (13.5-17.5); IMMATURE GRANULOCYTES 0.4 % (0-5); LYMPHOCYTES 13.8 % (15-50); MCH 30.8 pg (26.0-34.0); MCHC 31.7 g/dL (31.0-37.0); MCV 97.2 fL (80.0-100.0); MEAN PLATELET VOLUME 10.7 fL (7.4-10.4); MONOCYTES 9.4 % (2-11); NEUTROPHILS 74.7 % (40-80); PLATELET COUNT 287 10x3/uL (130-400); RBC 3.21 10x6/uL (4.20-6.10); RDW 13.7 % (11.5-14.5); WBC 18.9 10x3/uL (4.8-10.8)
[2018-02-09 03:54] LABS: ALBUMIN 2.6 g/dL (3.4-5.0); ALKALINE PHOSPHATASE 158 U/L (46-116); ALT (SGPT) 43 U/L (10-68); CALC OSMOLALITY 285 mosm/kg (275-300); CHLORIDE - SERUM 98 mmol/L (98-107); CREATININE - SERUM 0.8 mg/dL (0.6-1.3); GLUCOSE 168 mg/dL (74-106); POTASSIUM - SERUM 4.4 mmol/L (3.5-5.1); PROTEIN - SERUM 7.4 g/dL (6.4-8.2); SODIUM 140 mmol/L (136-145); UREA NITROGEN 21 mg/dL (7-18); eGFR NON AFRICAN AMERICAN > 90 mL/min (90-120)
[2018-02-09 04:08] LABS: CARBON DIOXIDE 43.5 mmol/L (21.0-32.0)
[2018-02-10] VITALS (29 sets, daily range): BP systolic 86–190; BP diastolic 62–109
[2018-02-10 04:40] LABS: BASOPHILS 0.3 % (0-2); EOSINOPHILS 4.9 % (0-7); HEMATOCRIT 33.5 % (42.0-54.0); HEMOGLOBIN 10.5 g/dL (13.5-17.5); IMMATURE GRANULOCYTES 0.3 % (0-5); LYMPHOCYTES 14.4 % (15-50); MCH 30.8 pg (26.0-34.0); MCHC 31.3 g/dL (31.0-37.0); MCV 98.2 fL (80.0-100.0); MEAN PLATELET VOLUME 10.5 fL (7.4-10.4); MONOCYTES 10.2 % (2-11); NEUTROPHILS 69.9 % (40-80); PLATELET COUNT 268 10x3/uL (130-400); RBC 3.41 10x6/uL (4.20-6.10); WBC 15.2 10x3/uL (4.8-10.8)
[2018-02-10 04:51] LABS: CALC OSMOLALITY 288 mosm/kg (275-300); CHLORIDE - SERUM 99 mmol/L (98-107); CREATININE - SERUM 0.7 mg/dL (0.6-1.3); GLUCOSE 161 mg/dL (74-106); POTASSIUM - SERUM 4.3 mmol/L (3.5-5.1); SODIUM 143 mmol/L (136-145); UREA NITROGEN 16 mg/dL (7-18); eGFR NON AFRICAN AMERICAN > 90 mL/min (90-120)
[2018-02-11] VITALS (46 sets, daily range): BP systolic 69–154; BP diastolic 27–115
[2018-02-11 04:21] LABS: BASOPHILS 0.1 % (0-2); EOSINOPHILS 1.4 % (0-7); HEMATOCRIT 30.3 % (42.0-54.0); HEMOGLOBIN 9.5 g/dL (13.5-17.5); IMMATURE GRANULOCYTES 0.3 % (0-5); LYMPHOCYTES 15.5 % (15-50); MCH 30.8 pg (26.0-34.0); MCHC 31.4 g/dL (31.0-37.0); MCV 98.4 fL (80.0-100.0); MEAN PLATELET VOLUME 10.2 fL (7.4-10.4); MONOCYTES 8.4 % (2-11); NEUTROPHILS 74.3 % (40-80); PLATELET COUNT 235 10x3/uL (130-400); RBC 3.08 10x6/uL (4.20-6.10); RDW 14.1 % (11.5-14.5); WBC 14.5 10x3/uL (4.8-10.8)
[2018-02-11 04:29] LABS: CALCIUM 8.8 mg/dL (8.5-10.1); CARBON DIOXIDE 37.8 mmol/L (21.0-32.0); CHLORIDE - SERUM 99 mmol/L (98-107); GLUCOSE 183 mg/dL (74-106); SODIUM 141 mmol/L (136-145)
[2018-02-11 04:36] LABS: CALC OSMOLALITY 289 mosm/kg (275-300); CREATININE - SERUM 0.9 mg/dL (0.6-1.3); POTASSIUM - SERUM 3.4 mmol/L (3.5-5.1); UREA NITROGEN 24 mg/dL (7-18); eGFR NON AFRICAN AMERICAN 88 mL/min (90-120)
[2018-02-12] VITALS (12 sets, daily range): BP systolic 70–143; BP diastolic 59–94
[2018-02-12 04:45] LABS: BASOPHILS 0.1 % (0-2); EOSINOPHILS 2.6 % (0-7); HEMATOCRIT 31.5 % (42.0-54.0); HEMOGLOBIN 9.9 g/dL (13.5-17.5); IMMATURE GRANULOCYTES 0.3 % (0-5); LYMPHOCYTES 12.6 % (15-50); MCH 30.7 pg (26.0-34.0); MCHC 31.4 g/dL (31.0-37.0); MCV 97.5 fL (80.0-100.0); MEAN PLATELET VOLUME 11.1 fL (7.4-10.4); NEUTROPHILS 75.4 % (40-80); PLATELET COUNT 290 10x3/uL (130-400); RBC 3.23 10x6/uL (4.20-6.10); RDW 14.2 % (11.5-14.5); WBC 14.9 10x3/uL (4.8-10.8)
[2018-02-12 04:49] LABS: CALC OSMOLALITY 284 mosm/kg (275-300); CARBON DIOXIDE 36.9 mmol/L (21.0-32.0); CHLORIDE - SERUM 99 mmol/L (98-107); CREATININE - SERUM 0.8 mg/dL (0.6-1.3); GLUCOSE 176 mg/dL (74-106); SODIUM 139 mmol/L (136-145); UREA NITROGEN 22 mg/dL (7-18); eGFR NON AFRICAN AMERICAN > 90 mL/min (90-120)
[2018-02-12 04:54] LABS: POTASSIUM - SERUM 3.3 mmol/L (3.5-5.1)
[2018-02-12] MEDS ORDERED: COREG6.25 MG PO (09:22)
[2018-02-12] MEDS ORDERED: ROBITUSSIN DM 110 ML PEG (09:23)
[2018-02-12] MEDS ORDERED: MEXITIL 200 MG200 MG PO (09:23)
[2018-02-12] MEDS ORDERED: ACETAMINOPHEN325 MG NG (09:23)
[2018-02-12] MEDS ORDERED: XANAX0.25 MG PEG (09:23)
[2018-02-12] MEDS ORDERED: DIAMOX IV (09:24)
[2018-02-12] MEDS ORDERED: PROTONIX FOR OR40 MG PEG (09:24)
[2018-02-12] MEDS ORDERED: CARAFATE1 G PEG (09:24)
[2018-02-12] MEDS ORDERED: HUMALOG 30100 UNITS/ SC (09:25)
== END 2018-02-12 12:54 | disposition short-term general hospital (02) | DRG 3 ==
LOC: D.ICU 14:36 → D.CVICU 16:21 → D.ICU 01-30 10:00
PROVIDERS: Emergency Medicine; Family Medicine; Internal Medicine Interventional Cardiology; Internal Medicine Nephrology; Internal Medicine Pulmonary Disease; Surgery
PROC: 5A1955Z Respiratory Ventilation, Greater than 96 Consecutive Hours (ICD-10-PCS; 2018-01-02)
PROC: 0BH17EZ Insertion of Endotracheal Airway into Trachea, Via Natural or Artificial Opening (ICD-10-PCS; 2018-01-02)
PROC: 4A023N7 Measurement of Cardiac Sampling and Pressure, Left Heart, Percutaneous Approach (ICD-10-PCS; 2018-01-07)
PROC: B2111ZZ Fluoroscopy of Multiple Coronary Arteries using Low Osmolar Contrast (ICD-10-PCS; 2018-01-07)
PROC: 02H63KZ Insertion of Defibrillator Lead into Right Atrium, Percutaneous Approach (ICD-10-PCS; 2018-01-08)
PROC: 02HK3KZ Insertion of Defibrillator Lead into Right Ventricle, Percutaneous Approach (ICD-10-PCS; 2018-01-08)
PROC: 0JH608Z Insertion of Defibrillator Generator into Chest Subcutaneous Tissue and Fascia, Open Approach (ICD-10-PCS; principal; 2018-01-08 13:30)
PROC: 0DB78ZX Excision of Stomach, Pylorus, Via Natural or Artificial Opening Endoscopic, Diagnostic (ICD-10-PCS; 2018-01-11)
PROC: 0DH63UZ Insertion of Feeding Device into Stomach, Percutaneous Approach (ICD-10-PCS; 2018-01-11)
PROC: 0B113F4 Bypass Trachea to Cutaneous with Tracheostomy Device, Percutaneous Approach (ICD-10-PCS; 2018-01-11 16:10)
DX: I11.0 Hypertensive heart disease with heart failure (principal); J96.01 Acute respiratory failure with hypoxia; R57.0 Cardiogenic shock; I81 Portal vein thrombosis; J96.02 Acute respiratory failure with hypercapnia; J18.9 Pneumonia, unspecified organism; R53.2 Functional quadriplegia; I49.01 Ventricular fibrillation; I69.354 Hemiplegia and hemiparesis following cerebral infarction affecting left non-dominant side; J44.1 Chronic obstructive pulmonary disease with (acute) exacerbation; E87.0 Hyperosmolality and hypernatremia; N17.9 Acute kidney failure, unspecified; I47.2 Ventricular tachycardia; G72.81 Critical illness myopathy; I50.23 Acute on chronic systolic (congestive) heart failure; I42.8 Other cardiomyopathies; I25.5 Ischemic cardiomyopathy; E11.9 Type 2 diabetes mellitus without complications; E78.5 Hyperlipidemia, unspecified; I27.81 Cor pulmonale (chronic); I48.91 Unspecified atrial fibrillation; F10.10 Alcohol abuse, uncomplicated; K74.69 Other cirrhosis of liver; I27.29 Other secondary pulmonary hypertension; B35.1 Tinea unguium; L85.3 Xerosis cutis; D64.9 Anemia, unspecified; I95.9 Hypotension, unspecified; F17.200 Nicotine dependence, unspecified, uncomplicated; E87.6 Hypokalemia; F41.9 Anxiety disorder, unspecified; I27.20 Pulmonary hypertension, unspecified; K21.9 Gastro-esophageal reflux disease without esophagitis